=== PATIENT | male | born 1965 | race Caucasian/White ===

== ENCOUNTER 2022-02-02 10:50 | Inpatient (IN) | payer BC, OTHER ==
[2022-02-02] VITALS (10 sets, daily range): BP systolic 111–162; BP diastolic 58–78
[~2022-02-02] VITALS: Ht 172 cm; Wt 86.0 kg
[2022-02-02] MEDS ORDERED: VANCOMYCIN INJECTION 1,000 MG in NS (IVPB) 250 ML IV ONE (11:15)
[2022-02-02] MEDS ORDERED: PIPERACILLIN SODIUM/TAZOBACTAM 4.5 GM in NS (IVPB) 100 ML IV ONE (11:15)
--- NOTE | 2022-02-02 11:17 | ED Lower Extremity ---
General Stated Complaint: RT FOOT INFECTION Source: patient Exam Limitations: no limitations History of Present Illness Date Seen by Provider: Feb 02, 2022 Time Seen by Provider: 11:00 Initial Comments 56-year-old male presents from urgent care for concerns for right foot infection. He states symptoms have progressed rapidly over the last 3 weeks. Denies any fevers but has had some chills. He is diabetic, takes metformin regularly. Does not know what his blood sugars have been running at home. 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 He states the worst of his pain is in his right ankle. He has had progressive redness that is spreading up his right leg for his report. Pain is dull throbbing without radiation. It is aggravated by weightbearing, relieved somewhat with rest. He has not tried anything for his symptoms. Mild to moderate with ambulation. No known injury Allergies and Home Medications Allergies Coded Allergies: No Known Drug Allergies (Unverified , 02/02/22) Patient Home Medication List Home Medication List Reviewed: Yes Acetaminophen (Tylenol Extra Strength) 500 Mg Tablet, 1,000 MG PO Q8H PRN for PAIN-MILD (1-4), (Reported) Entered as Reported by: RAFIQ TRAN on 02/02/221529 Last Action: Reviewed Latanoprost (Xalatan) 0.005 % Drops, 1 DROP OU HS, (Reported) Entered as Reported by: RAFIQ TRAN on 02/02/221529 Last Action: Reviewed Metformin HCl (Metformin HCl) 500 Mg Tablet, 500 MG PO BID WITH MEALS, (Reported) Entered as Reported by: RAFIQ TRAN on 02/02/221529 Last Action: Reviewed Timolol Maleate (Timolol Maleate 0.5%) 0.5 % Drops, 1 DROP OU DAILY, (Reported) Entered as Reported by: RAFIQ TRAN on 02/02/221529 Last Action: Reviewed Review of Systems Constitutional: chills EENTM: no symptoms reported Respiratory: no symptoms reported, see HPI Cardiovascular: no symptoms reported Gastrointestinal: no symptoms reported Genitourinary: no symptoms reported Musculoskeletal: other (Pain in his right ankle, right foot infection) Skin: other (Right foot infection) Psychiatric/Neurological: No Symptoms Reported Past Hvaxagv-Bbwpkr-Pgeaxw Hx Patient Social History Tobacco Use?: No Use of E-Cig and/or Vaping dev: No Substance use?: No Alcohol Use?: No Seasonal Allergies Seasonal Allergies: No Past Medical History Surgeries: No Family Medical History Reviewed Nursing Family Hx No Pertinent Family Hx Physical Exam Vital Signs Vital Signs - First Documented Capillary Refill : Height, Weight, BMI Height: '" Weight: lbs. oz. kg; BMI Method: General Appearance: WD/WN, no apparent distress HEENT: PERRL/EOMI, normal ENT inspection, pharynx normal Neck: non-tender, supple, normal inspection Cardiovascular: no gallop, no murmur, tachycardia Respiratory: chest non-tender, lungs clear, no respiratory distress, no a ccessory muscle use Gastrointestinal: normal bowel sounds, non tender, soft, no organomegaly Hips: bilateral hip non-tender, bilateral hip normal inspection, bilateral hip normal range of motion, bilateral hip no evidence of injury, bilateral hip bone tenderness Legs: bilateral leg non-tender, bilateral leg normal inspection, bilateral leg normal range of motion, bilateral leg no evidence of injury, bilateral leg abrasions, bilateral leg bone tenderness, bilateral leg deformity, bilateral leg ecchymosis, bilateral leg joint effusion, bilateral leg limited range of motion, bilateral leg nodules, bilateral leg pain, bilateral leg soft tissue tenderness, bilateral leg swelling, bilateral leg other Knees: bilateral knee non-tender, bilateral knee normal inspection, bilateral knee normal range of motion, bilateral knee no evidence of injury, bilateral knee bone tenderness, bilateral knee deformity, bilateral knee ecchymosis, bi lateral knee joint effusion, bilateral knee nodules, bilateral knee nodules, bilateral knee pain, bilateral knee soft tissue tenderness, bilateral knee swelling, bilateral knee other Ankles: right ankle swelling (Tenderness palpation diffusely about the right foot, ankle. There is a combination of dry and wet gangrene to the dorsum and plantar surface of the right foot. This extends from beneath the third toe and wraps around to the dorsum of his foot and about the same area.), right ankle other (There is a very foul smell emanating from the right foot wound) Feet: right foot other (As documented above) Neurologic/Psychiatric: no motor/sensory deficits, alert, normal mood/affect, oriented x 3 Skin: other (As described above) Progress/Results/Core Measures Results/Orders Lab Results Laboratory Tests Test 8/24/22 11:25 Range/Units White Blood Count 21.7 H 4.3-11.0 10^3/uL Red Blood Count 3.79 L 4.30-5.52 10^6/uL Hemoglobin 11.6 L 13.3-17.7 g/dL Hematocrit 34 L 40-54 % Mean Corpuscular Volume 90 80-99 fL Mean Corpuscular Hemoglobin 31 25-34 pg Mean Corpuscular Hemoglobin Concent 34 32-36 g/dL Red Cell Distribution Width 12.4 10.0-14.5 % Platelet Count 463 H 130-400 10^3/uL Mean Platelet Volume 9.9 9.0-12.2 fL Immature Granulocyte % (Auto) 1 % Neutrophils (%) (Auto) 89 H 42-75 % Lymphocytes (%) (Auto) 5 L 12-44 % Monocytes (%) (Auto) 5 0-12 % Eosinophils (%) (Auto) 0 0-10 % Basophils (%) (Auto) 0 0-10 % Neutrophils # (Auto) 19.3 H 1.8-7.8 10^3/uL Lymphocytes # (Auto) 1.1 1.0-4.0 10^3/uL Monocytes # (Auto) 1.0 0.0-1.0 10^3/uL Eosinophils # (Auto) 0.0 0.0-0.3 10^3/uL Basophils # (Auto) 0.0 0.0-0.1 10^3/uL Immature Granulocyte # (Auto) 0.2 H 0.0-0.1 10^3/uL Neutrophils % (Manual) 92 % Lymphocytes % (Manual) 6 % Monocytes % (Manual) 1 % Eosinophils % (Manual) 0 % Basophils % (Manual) 0 % Metamyelocytes % 1 % Band Neutrophils 0 % Sodium Level 121 *L 135-145 MMOL/L Potassium Level 4.9 3.6-5.0 MMOL/L Chloride Level 82 L 98-107 MMOL/L Carbon Dioxide Level 23 21-32 MMOL/L Anion Gap 16 H 5-14 MMOL/L Blood Urea Nitrogen 37 H 7-18 MG/DL Creatinine 1.09 0.60-1.30 MG/DL Estimat Glomerular Filtration Rate 81 BUN/Creatinine Ratio 34 Glucose Level 509 *H 70-105 MG/DL Lactic Acid Level 1.84 0.50-2.00 MMOL/L Calcium Level 9.2 8.5-10.1 MG/DL Corrected Calcium 10.5 H 8.5-10.1 MG/DL Total Bilirubin 0.7 0.1-1.0 MG/DL Aspartate Amino Transf (AST/SGOT) 12 5-34 U/L Alanine Aminotransferase (ALT/SGPT) 7 0-55 U/L Alkaline Phosphatase 166 H 40-136 U/L Total Protein 7.9 6.4-8.2 GM/DL Albumin 2.4 L 3.2-4.5 GM/DL My Orders Orders - MAGALI ROJAS DO Cbc With Automated Diff (02/02/22 11:03) Comprehensive Metabolic Panel (02/02/22 11:03) Blood Culture (02/02/22 11:03) Ed Iv/Invasive Line Start (02/02/22 11:03) Vital Signs Adult Sepsis Patie Q15M (02/02/22 11:03) Lactic Acid Analyzer (02/02/22 11:03) Wound Culture (02/02/22 11:03) Piperacillin Sodium/Tazobactam (Zosyn Vi (02/02/22 11:15) Vancomycin Injection (Vancomycin Injecti (02/02/22 11:15) Foot 2 View Right (02/02/22 11:10) Ct Extremity Lower Right Wo (02/02/22 11:24) Manual Differential (02/02/22 11:25) Insulin Aspart (Novolog) (Novolog (Charg (02/02/22 12:15) Ed Admission (Communication) (02/02/22 12:21) Medications Given in ED Current Medications Medications Dose Ordered Sig/Sara Route Start Time Stop Time Status Last Admin Dose Admin Insulin Aspart 5 unit ONCE ONCE SC 02/02/22 12:15 02/02/22 12:16 DC 02/02/22 12:31 5 UNIT Piperacillin Sod/ Tazobactam Sod 4.5 gm/Sodium Chloride 100 ml @ 200 mls/hr ONCE ONCE IV 02/02/22 11:15 02/02/22 11:44 DC 02/02/22 11:28 200 MLS/HR Vancomycin HCl 1000 mg/Sodium Chloride 250 ml @ 250 mls/hr ONCE ONCE IV 02/02/22 11:15 02/02/22 12:14 DC 02/02/22 11:35 250 MLS/HR Vital Signs/I&O 02/02/22 02/02/22 02/02/22 10:55 10:55 12:15 Temp 36.3 36.3 Pulse 112 112 104 Resp 20 20 18 B/P (MAP) 161/87 (111) 161/87 135/62 Pulse Ox 98 98 92 O2 Delivery Room Air Room Air Room Air Progress Progress Note : Time: 12:28 Progress Note Patient tachycardia has improved with IV fluids. CT scan read as possible necrotizing fasciitis however there is no evidence for rapid progression of this infection and this seems indolent over the last several weeks to 1 month. He is normal to slightly hypertensive. He has been given IV antibiotics. I spoke with Dr. Clinton and Dr. Garcia. The patient is pending transport to [facility] Diagnostic Imaging Comments [facility], [place] NAME: MORE MISHRA [facility] REC#: [id number] PT STATUS: REG ER : 1965 PHYSICIAN: MAGALI ROJAS DO ADMIT DATE: 02/02/22/ER FS Draft Date of Exam:02/02/22 FOOT 2 VIEW RIGHT INDICATION: Right foot pain with gangrene. FINDINGS: Three views of the right foot show gas within the soft tissues of the second through fifth toes. There is no appreciable fracture, dislocation or radiopaque foreign object. IMPRESSION: Soft tissue gas, concerning for tissue necrosis. Dictated on workstation # [id number] Dict: 02/02/22 1143 Trans: 02/02/22 1148 [id number] Interpreted by: RENAE CORDOVA MD Electronically signed by: NAME: TADMORE AGUERO MED REC#: [id number] PT STATUS: REG ER : 1965 PHYSICIAN: MAGALI ROJAS DO ADMIT DATE: 02/02/22/ER FS Draft Date of Exam:02/02/22 CT EXTREMITY LOWER RIGHT WO EXAMINATION: CT right lower extremity without contrast, 02/02/2022. TECHNIQUE: Axially acquired CT was obtained through the right lower extremity without intravenous contrast. Coronal and sagittal reformations were also performed. Auto Exposure Controls were utilized during the CT exam to meet ALARA standards for radiation dose reduction. INDICATION: Foot infection, gangrene. Rule out necrotizing infection. FINDINGS: There is marked diffuse subcutaneous air throughout the forefoot, predominantly centered about the second through fourth metatarsophalangeal regions. This involves both the plantar and dorsal aspects of the forefoot. Foci of air extend proximally within the dorsal aspect of the foot at the level of the third and fourth metatarsals. Subcutaneous air is also noted along the medial aspect of the midfoot overlying the mid and distal aspects of the first metatarsal and extending towards the plantar surface of the foot. Surrounding subcutaneous edema and/or cellulitis noted throughout the forefoot. A small abscess would be difficult to exclude on this noncontrast examination. Within the osseous structures, there are degenerative changes within the ankle. There is intraosseous air within the second, third, and fourth metatarsal heads and also throughout the proximal second, third, and fourth phalanges and within the middle and proximal phalanges of the second, third, and fourth toes. 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 Chronic changes noted about the base of the fifth metatarsal. No acute fractures appreciated. IMPRESSION: 1. Diffuse subcutaneous air as detailed above suspicious for a gas-forming infection with gas-forming organism/necrotizing fasciitis. Abscess not excluded on this noncontrast examination. Diffuse changes of edema versus cellulitis also noted. 2. 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 Dictated on workstation # [id number] Dict: 02/02/22 1200 Trans: 02/02/22 1211 [id number] Interpreted by: GEORGE MATHUR MD Electronically signed by: Critical Care Note Critical Care Total Time (minutes) 65 Progress Time spent in chart review, medication management, consultation with multiple specialists and transfer. Departure Communication (Admissions) TRANSFER TO [place]. 4th floor tele, inpatient per Dr. Anand. Spoke to Dr. Clinton, agrees with plan. Requests transfer for operative manage ment. Patient is hemodynamically stable. Tachycardia improved with IV fluids. Initially some current concern for necrotizing type infection. CT scan shows possible necrotizing infection however given its indolent course I do not think that at least this is a rapid necrotizing infection. I spoke to the general surgeon, Dr. Clinton who agrees with current plan of care and requested patient remain n.p.o. and transfer for surgical management. He has been given IV antibiotics and IV fluids. I spoke with the hospitalist Dr. Anand. She accepts the patient in transfer. Impression Primary Impression: Wet gangrene Additional Impressions: Dry gangrene Sepsis Qualified Codes: A41.9 - Sepsis, unspecified organism Disposition: 30 STILL A PATIENT Condition: Stable Transfer Transfer Reason: Exceeds level of care Time Spoke to Accepting Phy: 12:20 Transfer Progress Notes Spoke to Dr. Anand. Request for for telemetry, inpatient. Accepts patient in transfer and agrees with current plan of care. Transfer Facility: [facility] Method of Transfer: EMS Departure-Patient Inst. Referrals: ABHINAV BARRIOS APRN (PCP) Primary Care Physician JOSE ANTONIO,LOCAL PHYSICIAN (Family) Primary Care Physician MAGALI ROJAS DO Feb 02, 2022 11:17
[2022-02-02 11:35] LABS: BASOPHILS % (AUTO) 0 % (0-10); EOSINOPHILS % (AUTO) 0 % (0-10); HEMATOCRIT 34 % (40-54); HEMOGLOBIN 11.6 g/dL (13.3-17.7); LYMPHOCYTES # (AUTO) 1.1 10^3/uL (1.0-4.0); LYMPHOCYTES % (AUTO) 5 % (12-44); MEAN CORPUSCULAR HEMOGLOBIN 31 pg (25-34); MEAN CORPUSCULAR HGB CONC 34 g/dL (32-36); MEAN CORPUSCULAR VOLUME 90 fL (80-99); MEAN PLATELET VOLUME 9.9 fL (9.0-12.2); MONOCYTES % (AUTO) 5 % (0-12); NEUTROPHILS # (AUTO) 19.3 10^3/uL (1.8-7.8); NEUTROPHILS % (AUTO) 89 % (42-75); PLATELET COUNT 463 10^3/uL (130-400); WHITE BLOOD COUNT 21.7 10^3/uL (4.3-11.0)
--- NOTE | 2022-02-02 11:49 | Diagnostic Imaging Report ---
INDICATION: Right foot pain with gangrene. FINDINGS: Three views of the right foot show gas within the soft tissues of the second through fifth toes. There is no appreciable fracture, dislocation or radiopaque foreign object. IMPRESSION: Soft tissue gas, concerning for tissue necrosis. Dictated by: Dictated on workstation # [id number]
[2022-02-02 11:50] LABS: BAND NEUTROPHILS 0 %; BASOPHILS % (MANUAL) 0 %; EOSINOPHILS % (MANUAL) 0 %; LYMPHOCYTES % (MANUAL) 6 %; METAMYELOCYTES % 1 %; MONOCYTES % (MANUAL) 1 %; NEUTROPHILS % (MANUAL) 92 %
[2022-02-02 12:03] LABS: POTASSIUM 4.9 MMOL/L (3.6-5.0)
[2022-02-02 12:04] LABS: ALBUMIN 2.4 GM/DL (3.2-4.5); BILIRUBIN,TOTAL 0.7 MG/DL (0.1-1.0); CALCIUM 9.2 MG/DL (8.5-10.1); CREATININE SERUM 1.09 MG/DL (0.60-1.30); TOTAL PROTEIN 7.9 GM/DL (6.4-8.2)
--- NOTE | 2022-02-02 12:12 | Diagnostic Imaging Report ---
EXAMINATION: CT right lower extremity without contrast, 02/02/2022. TECHNIQUE: Axially acquired CT was obtained through the right lower extremity without intravenous contrast. Coronal and sagittal reformations were also performed. Auto Exposure Controls were utilized during the CT exam to meet ALARA standards for radiation dose reduction. INDICATION: Foot infection, gangrene. Rule out necrotizing infection. FINDINGS: There is marked diffuse subcutaneous air throughout the forefoot, predominantly centered about the second through fourth metatarsophalangeal regions. This involves both the plantar and dorsal aspects of the forefoot. Foci of air extend proximally within the dorsal aspect of the foot at the level of the third and fourth metatarsals. Subcutaneous air is also noted along the medial aspect of the midfoot overlying the mid and distal aspects of the first metatarsal and extending towards the plantar surface of the foot. Surrounding subcutaneous edema and/or cellulitis noted throughout the forefoot. A small abscess would be difficult to exclude on this noncontrast examination. Within the osseous structures, there are degenerative changes within the ankle. There is intraosseous air within the second, third, and fourth metatarsal heads and also throughout the proximal second, third, and fourth phalanges and within the middle and proximal phalanges of the second, third, and fourth toes. 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 Chronic changes noted about the base of the fifth metatarsal. No acute fractures appreciated. IMPRESSION: 1. Diffuse subcutaneous air as detailed above suspicious for a gas-forming infection with gas-forming organism/necrotizing fasciitis. Abscess not excluded on this noncontrast examination. Diffuse changes of edema versus cellulitis also noted. 2. 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 Dictated by: Dictated on workstation # [id number]
[2022-02-02] MEDS ORDERED: inSUlin ASPART (NovoLOG) 1 UNIT/0.01 ML (CHARGE PER UNIT) SC ONE (12:15)
[2022-02-02] MEDS ORDERED: ONDANSETRON 4 MG/2 ML (SDV) Z0FRAN IV PRN (14:45)
[2022-02-02] MEDS ORDERED: polyethylene glycoL POWDER 17 GM (MIRALAX) PACK PO PRN (14:45)
[2022-02-02] MEDS ORDERED: MELATONIN 3 MG TABLET PO PRN (14:45)
[2022-02-02] MEDS ORDERED: VANCOMYCIN INJECTION 0.1 MG in NS (IVPB) 250 ML IV SCH (14:45)
[2022-02-02] MEDS ORDERED: ACETAMINOPHEN 325 MG TABLET PO PRN (14:45)
--- NOTE | 2022-02-02 14:57 | Consultation - Surgery ---
GODWIN ALLISON 02/02/22 1457: History of Present Illness History of Present Illness Patient Consulted On(lamar/time) 02/02/22 14:47 Date Seen by Provider: Feb 02, 2022 History of Present Illness Pt presents from [facility] with suspected necrotizing fasciitits of right lower extremity, for the last x 3 weeks. Pt has a hx of diabetes, takes metformin regularly. States for the last 3 months he has had issues with wounds not healing on his RLE. States x 3 weeks ago at the [place] he noticed some discomfort in his right ankle. Since then he has had progressive redness that is spreading up his right leg and down into his toes. 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 It is aggravated by weightbearing, relieved somewhat with rest. He has not tried anything for his symptoms. Mild to moderate discomfort with ambulation. No known injury. He is not sure what his sugars have been over the last several days. Denies fever, chills, N/V, CP, SOB, abdominal pain, or any other sx. States he has decreased appetite and has not eaten since yesterday afternoon. Allergies and Home Medications Allergies Coded Allergies: No Known Drug Allergies (Unverified , 02/02/22) Patient Home Medication List Acetaminophen (Tylenol Extra Strength) 500 Mg Tablet, 1,000 MG PO Q8H PRN for PAIN-MILD (1-4), (Reported) Entered as Reported by: RAFIQ TRAN on 02/02/221529 Last Action: Reviewed Latanoprost (Xalatan) 0.005 % Drops, 1 DROP OU HS, (Reported) Entered as Reported by: RAFIQ TRAN on 02/02/221529 Last Action: Reviewed Metformin HCl (Metformin HCl) 500 Mg Tablet, 500 MG PO BID WITH MEALS, (Reported) Entered as Reported by: RAFIQ TRAN on 02/02/221529 Last Action: Reviewed Timolol Maleate (Timolol Maleate 0.5%) 0.5 % Drops, 1 DROP OU DAILY, (Reported) Entered as Reported by: RAFIQ TRAN on 02/02/221529 Last Action: Reviewed Past Itcjxxq-Modfys-Xuadts Hx Patient Social History Smoking Status: Never a Smoker Alcohol Use?: No Have you traveled recently?: No Seasonal Allergies Seasonal Allergies: No Surgeries History of Surgeries: No Respiratory History of Respiratory Disorde: No Cardiovascular History of Cardiac Disorders: No Neurological History of Neurological Disord: No Gastrointestinal History of Gastrointestinal Di: No Musculoskeletal History of Musculoskeletal Dis: No Endocrine Endocrine Disorders: Diabetes, Non-Insulin dep HEENT HEENT Disorders: Cataract Cancer History of Cancer: No Family Medical History Significant Family History: No Pertinent Family Hx Review of Systems-General Constitutional: No chills, No fever Physical Exam-General Problems Physical Exam Vital Signs Vital Signs - First Documented Capillary Refill : Less Than 3 Seconds General Appearance: no apparent distress Eyes: Bilateral Eye PERRL, Bilateral Eye EOMI HEENT: PERRL/EOMI Neck: non-tender, supple Respiratory: lungs clear, normal breath sounds, no respiratory distress, no accessory muscle use Cardiovascular: no gallop, no murmur, tachycardia Peripheral Pulses: 2+ Radial Pulses (R), 2+ Radial Pulses (L) Gastrointestinal: normal bowel sounds, non tender, soft Extremities: swelling (Tenderness to palpation diffusely about the right foot, ankle. There is a combination of dry and wet gangrene to the dorsum and plantar surface of the right foot. This extends from beneath the third toe and wraps around to the dorsum of his foot and about the same area. Second, third and fourth toes necrotic and black. It has a very foul smell associated w/it) Neurologic/Psychiatric: alert, oriented x 3 Skin: other (RLE as noted above. ) Lymphatic: no adenopathy (of supraclavicular nodes ) Data Review Labs Laboratory Tests 02/02/22 11:25: White Blood Count 21.7H, Red Blood Count 3.79L, Hemoglobin 11.6L, Hematocrit 34L , Mean Corpuscular Volume 90, Mean Corpuscular Hemoglobin 31, Mean Corpuscular H emoglobin Concent 34, Red Cell Distribution Width 12.4, Platelet Count 463H, Mean Platelet Volume 9.9, Immature Granulocyte % (Auto) 1, Neutrophils (%) (Auto) 89H, Lymphocytes (%) (Auto) 5L, Monocytes (%) (Auto) 5, Eosinophils (%) (Auto) 0, Basophils (%) (Auto) 0, Neutrophils # (Auto) 19.3H, Lymphocytes # (Auto) 1.1, Monocytes # (Auto) 1.0, Eosinophils # (Auto) 0.0, Basophils # (Auto) 0.0, Immature Granulocyte # (Auto) 0.2H, Neutrophils % (Manual) 92, Lymphocytes % (Manual) 6, Monocytes % (Manual) 1, Eosinophils % (Manual) 0, Basophils % (Manual) 0, Metamyelocytes % 1, Band Neutrophils 0, Sodium Level 121*L, Potassium Level 4.9, Chloride Level 82L, Carbon Dioxide Level 23, Anion Gap 16H, Blood Urea Nitrogen 37H, Creatinine 1.09, Estimat Glomerular Filtration Rate 81, BUN/Creatinine Ratio 34, Glucose Level 509*H, Lactic Acid Level 1.84, Calcium Level 9.2, Corrected Calcium 10.5H, Total Bilirubin 0.7, Aspartate Amino Transf (AST/SGOT) 12, Alanine Aminotransferase (ALT/SGPT) 7, Alkaline Phosphatase 166H, Total Protein 7.9, Albumin 2.4L 02/02/22 13:05: Glucometer 463*H Assessment/Plan Assessment/Plan Assessment/Plan Necrotizing fasciitis of RLE Emphysematous osteomyelitis of RLE T2DM Pt started on IV fluids, zosyn, and vanc. CT evidence of necrotizing fasciitis and osteomyelitis. Abscess cannot be ruled out. He is currently hemodynamically stable. His last meal was yesterday afternoon. Plan to take to OR for BKA. Discussed pt diagnosis with him and recommendation for surgery including risks and benefits. Pt was agreeable to proceed. VASQUEZ TAVERA DO 02/02/22 1553: History of Present Illness History of Present Illness Time Seen by Provider: 15:31 History of Present Illness Surgery asked to consult regarding Gangrene of right lower extremity. HPI per IM: Patient is a 56-year-old male with past medical history of rvg-rgamawf-clwravvlr diabetes type 2 and hypertension who presented to the emergency department due to foot infection. He is uncertain when all of his symptoms started but thinks it is been worsening over the past 3 weeks. He does have black toes on his right foot and he is unaware how long they have been joaquin ck for. He denies any fevers. He does have redness that is spreading up his leg and he was seen at an urgent care this morning and referred to the emergency department. He was found to have gangrenous toes and CT revealed diffuse gas throughout his foot and he was admitted for IV antibiotics and very likely amputation. When I spoke to pt he states pain is moderate, he stands at work and was able to work today. He actually got sent to Urgent care because of smell and was then sent to ER. This has been going on for 3months, but worse over past 3 weeks. Allergies and Home Medications Allergies Coded Allergies: No Known Drug Allergies (Unverified , 02/02/22) Patient Home Medication List Home Medication List Reviewed: Yes Acetaminophen (Tylenol Extra Strength) 500 Mg Tablet, 1,000 MG PO Q8H PRN for PAIN-MILD (1-4), (Reported) Entered as Reported by: RAFIQ TRAN on 02/02/221529 Last Action: Reviewed Latanoprost (Xalatan) 0.005 % Drops, 1 DROP OU HS, (Reported) Entered as Reported by: RAFIQ TARN on 02/02/221529 Last Action: Reviewed Metformin HCl (Metformin HCl) 500 Mg Tablet, 500 MG PO BID WITH MEALS, (Reported) Entered as Reported by: RAFIQ TRAN on 02/02/221529 Last Action: Reviewed Timolol Maleate (Timolol Maleate 0.5%) 0.5 % Drops, 1 DROP OU DAILY, (Reported) Entered as Reported by: RAFIQ TRAN on 02/02/221529 Last Action: Reviewed Past Ptjbmuh-Puagip-Tdjfsz Hx Patient Social History Smoking Status: Never a Smoker Alcohol Use?: No Surgeries History of Surgeries: No Respiratory History of Respiratory Disorde: No Cardiovascular History of Cardiac Disorders: No Genitourinary History of Genitourinary Disor: No Gastrointestinal History of Gastrointestinal Di: No Musculoskeletal History of Musculoskeletal Dis: No Endocrine History of Endocrine Disorders: Yes Endocrine Disorders: Diabetes, Non-Insulin dep HEENT History of HEENT Disorders: Yes HEENT Disorders: Cataract (actually scheduled for surgery next week) Hearing Impairment: Denies Cancer History of Cancer: No Psychosocial History of Psychiatric Problem: No Family Medical History Significant Family History: Cancer (Father had Hodgkins Lymphoma), Hypertension Review of Systems-General Constitutional: No chills, No fever, No weakness EENTM: blurred vision; No mouth swelling, No epistaxis Respiratory: No cough, No dyspnea on exertion Cardiovascular: No chest pain, No palpitations Gastrointestinal: No abdominal pain, No diarrhea; loss of appetite; No nausea, No vomiting Genitourinary: No dysuria, No frequency, No hematuria Musculoskeletal: joint pain, joint swelling, muscle stiffness Skin: see HPI; No pruritus, No rash Psychiatric/Neurological: Denies Anxiety, Denies Depressed, Denies Seizure, Denies Tremors Physical Exam-General Problems Physical Exam General Appearance: WD/WN, no apparent distress Eyes: Bilateral Eye PERRL, Bilateral Eye EOMI HEENT: pharynx normal; No scleral icterus (R), No scleral icterus (L) Neck: non-tender, supple Respiratory: lungs clear, normal breath sounds, no respiratory distress, no accessory muscle use Cardiovascular: no murmur, tachycardia Peripheral Pulses: 2+ Radial Pulses (R), 2+ Radial Pulses (L) Gastrointestinal: normal bowel sounds, non tender, soft, no organomegaly Back: no CVA tenderness, no vertebral tenderness Extremities: no calf tenderness, swelling (Tenderness to palpation diffusely about the right foot, ankle. There is a combination of dry and wet gangrene to the dorsum and plantar surface of the right foot. This extends from beneath the third toe and wraps around to the dorsum of his foot and about the same area. Second, third and fourth toes necrotic and black. It has a very foul smell associated w/it) Neurologic/Psychiatric: brands editor II-XII nml as tested, alert, oriented x 3 Skin: normal color, warm/dry, other (RLE as noted above. ) Lymphatic: no adenopathy (neck, axilla. ??nodes in right groin) Data Review Radiology Date of Exam:02/02/22 CT EXTREMITY LOWER RIGHT WO EXAMINATION: CT right lower extremity without contrast, 02/02/2022. TECHNIQUE: Axially acquired CT was obtained through the right lower extremity without intravenous contrast. Coronal and sagittal reformations were also performed. Auto Exposure Controls were utilized during the CT exam to meet ALARA standards for radiation dose reduction. INDICATION: Foot infection, gangrene. Rule out necrotizing infection. FINDINGS: There is marked diffuse subcutaneous air throughout the forefoot, predominantly centered about the second through fourth metatarsophalangeal regions. This involves both the plantar and dorsal aspects of the forefoot. Foci of air extend proximally within the dorsal aspect of the foot at the level of the third and fourth metatarsals. Subcutaneous air is also noted along the medial aspect of the midfoot overlying the mid and distal aspects of the first metatarsal and extending towards the plantar surface of the foot. Surrounding subcutaneous edema and/or cellulitis noted throughout the forefoot. A small abscess would be difficult to exclude on this noncontrast examination. Within the osseous structures, there are degenerative changes within the ankle. There is intraosseous air within the second, third, and fourth metatarsal heads and also throughout the proximal second, third, and fourth phalanges and within the middle and proximal phalanges of the second, third, and fourth toes. 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 Chronic changes noted about the base of the fifth metatarsal. No acute fractures appreciated. IMPRESSION: 1. Diffuse subcutaneous air as detailed above suspicious for a gas-forming infection with gas-forming organism/necrotizing fasciitis. Abscess not excluded on this noncontrast examination. Diffuse changes of edema versus cellulitis also noted. 2. 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 Dictated by: Dictated on workstation # [id number] Dict: 02/02/22 1200 Trans: 02/02/22 1515 [id number] Interpreted by: GEORGE MATHUR MD Electronically signed by: GEORGE MATHUR MD 02/02/22 1515 Assessment/Plan Assessment/Plan Assessment/Plan Gangrene of toes Right Lower Extremity r/o Osteomyelitis Possible Necrotizing fasciitis of RLE Emphysematous osteomyelitis of RLE T2DM - uncontrolled Pt started on IV fluids, zosyn, and vanc. I reviewed the CT myself and agree with radiology reading; CT evidence of possible necrotizing fasciitis and osteomyelitis. Abscess cannot be ruled out. I also discussed case with Dr. Anand. He is currently hemodynamically stable. His last meal was yesterday afternoon. Plan to take to OR for BKA. Discussed pt diagnosis with him and recommendation for surgery including risks and benefits; not limited to pain, bleeding, infection, scar and need for further surgery.. Pt was agreeable to proceed. Supervisory-Addendum Brief Verification & Attestation Participated in pt care: history, MDM, physical Personally performed: exam, history, MDM, supervision of care Care discussed with: Medical Student Procedures: n/a Verification and Attestation of Medical Student E/M Service A medical student performed and documented this service. I then reviewed and verified all information documented by the medical student and made modifications to such information, when appropriate. I personally performed a physical exam, medical decision making and then discussed any differences between the notes and made revisions as necessary to create one note. Vasquez Tavera , 02/02/22 , 15:58 GODWIN ALLISON Feb 02, 2022 14:57 VASQUEZ TAVERA DO Feb 02, 2022 15:53
--- NOTE | 2022-02-02 15:07 | History & Physical-Hospitalist ---
History of Present Illness HPI/Chief Complaint Patient is a 56-year-old male with past medical history of zwn-qnlxvjg-gpxwjglwv diabetes type 2 and hypertension who presented to the emergency department due to foot infection. He is uncertain when all of his symptoms started but thinks it is been worsening over the past 3 weeks. He does have black toes on his right foot and he is unaware how long they have been black for. He denies any fevers. He does have redness that is spreading up his leg and he was seen at an urgent care this morning and referred to the emergency department. He was found to have gangrenous toes and CT revealed diffuse gas t hroughout his foot and he was admitted for IV antibiotics and very likely amputation. Source: patient Date Seen 02/02/22 Time Seen by a Provider: 14:45 Attending Physician No,Local Physician PCP Admitting Physician: Zoey Anand MD Attending Physician: Zoey Anand MD Referring Physician Date of Admission Feb 02, 2022 at 14:14 Home Medications & Allergies Home Medications Reviewed patient Home Medication Reconciliation performed by pharmacy medication reconciliations converting technician and/or nursing. Patients Allergies have been reviewed. Allergies Allergies Coded Allergies No Known Drug Allergies (Unverified02/02/22) Past Ervovgp-Eyvapo-Wfvaig Hx Patient Social History Employed/Student: employed Tobacco Use?: No Use of E-Cig and/or Vaping dev: No Substance use?: No Alcohol Use?: Yes Alcohol Frequency: Rarely Pt feels they are or have been: No Immunizations Up To Date Tetanus Booster (TDap): More Than 5 Years Seasonal Allergies Seasonal Allergies: No Current Status Advance Directives: No Communicates: Verbally Primary Language: Togolese Preferred Spoken Language: Togolese Is interpretation needed?: No Sensory deficits: Vision impairment Implanted or Applied Medical D: None Past Medical History Hypertension Diabetes, Non-Insulin dep Family Medical History Reviewed and Corrections made Diabetes, Hypertension Review of Systems Constitutional: chills; No fever EENTM: no symptoms reported Respiratory: no symptoms reported Cardiovascular: No chest pain, No edema, No palpitations Gastrointestinal: no symptoms reported Genitourinary: no symptoms reported Musculoskeletal: joint pain (ankle) Skin: see HPI Psychiatric/Neurological: No Symptoms Reported Physical Exam Physical Exam Vital Signs Vital Signs - First Documented Capillary Refill : Less Than 3 Seconds Height, Weight, BMI Height: '" Weight: lbs. oz. kg; 27.00 BMI Method: General Appearance: No Apparent Distress, Chronically ill, Thin HEENT: PERRL/EOMI, Moist Mucous Membranes, Other (poor dentition) Neck: Normal Inspection, Supple Respiratory: Lungs Clear, No Accessory Muscle Use, No Respiratory Distress Cardiovascular: No Murmur, Tachycardia Gastrointestinal: Normal Bowel Sounds, Non Tender, Soft Extremity: Swelling (right leg ), Other (right foot with dry ganrenous and black toes with streaking erythema spreading up leg) Neurologic/Psychiatric: Alert, Oriented x3 Skin: Erythema (RLE) Results Results/Procedures Labs Laboratory Tests 02/02/22 11:25 02/03/22 05:29 Patient resulted labs reviewed. Imaging: Reviewed Imaging Report Imaging [facility] [place] NAME: MORE MISHRA [facility] REC#: [id number] PT STATUS: REG ER : 1965 PHYSICIAN: MAGALI ROJAS DO ADMIT DATE: 02/02/22/ER FS Draft Date of Exam:02/02/22 CT EXTREMITY LOWER RIGHT WO EXAMINATION: CT right lower extremity without contrast, 02/02/2022. TECHNIQUE: Axially acquired CT was obtained through the right lower extremity without intravenous contrast. Coronal and sagittal reformations were also performed. Auto Exposure Controls were utilized during the CT exam to meet ALARA standards for radiation dose reduction. INDICATION: Foot infection, gangrene. Rule out necrotizing infection. FINDINGS: There is marked diffuse subcutaneous air throughout the forefoot, predominantly centered about the second through fourth metatarsophalangeal regions. This involves both the plantar and dorsal aspects of the forefoot. Foci of air extend proximally within the dorsal aspect of the foot at the level of the third and fourth metatarsals. Subcutaneous air is also noted along the medial aspect of the midfoot overlying the mid and distal aspects of the first metatarsal and extending towards the plantar surface of the foot. Surrounding subcutaneous edema and/or cellulitis noted throughout the forefoot. A small abscess would be difficult to exclude on this noncontrast examination. Within the osseous structures, there are degenerative changes within the ankle. There is intraosseous air within the second, third, and fourth metatarsal heads and also throughout the proximal second, third, and fourth phalanges and within the middle and proximal phalanges of the second, third, and fourth toes. 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 Chronic changes noted about the base of the fifth metatarsal. No acute fractures appreciated. IMPRESSION: 1. Diffuse subcutaneous air as detailed above suspicious for a gas-forming infection with gas-forming organism/necrotizing fasciitis. Abscess not excluded on this noncontrast examination. Diffuse changes of edema versus cellulitis also noted. 2. 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 Dictated on workstation # [id number] Dict: 02/02/22 1200 Trans: 02/02/22 1211 [id number] Interpreted by: GEORGE MATHUR MD Electronically signed by: Assessment/Plan Admission Diagnosis Sepsis Admission Status: Inpatient Order (span 2 midnights) Reason for Inpatient Admission: see below Assessment and Plan sepsis gangrene wet and dry of right lower extremity Continue on IV abx Surgery consulted for likely amputation Has not eaten since yesterday Await cultures Does not meet severe criteria Consider cardiology consultation to evaluate for PAD NIDDMII ONly on metformin at home BS 509 on arrival SSI Will check a1c Na corrects to 131- trend HTN BP very elevated on arrival, trend DVT ppx: Lovenox after surgery ZOEY ANAND MD Feb 02, 2022 15:07
[2022-02-02] MEDS ORDERED: VANCOMYCIN 500 MG/NS 100 ML IV NR ×2 (15:15)
[2022-02-02] MEDS ORDERED: METF-397 PO (15:30)
[2022-02-02] MEDS ORDERED: ACET-2267 PO (15:30)
[2022-02-02] MEDS ORDERED: LATA2.5D19 OU (15:30)
[2022-02-02] MEDS ORDERED: TIMO5DRO5 OU (15:30)
[2022-02-02] MEDS: NS IV 1000 ML 1,000 ML IV SCH ×2 (15:37→20:09)
[2022-02-02] MEDS: inSUlin ASPART (NovoLOG) 1 UNIT/0.01 ML (CHARGE PER UNIT) SC SCH ×2 (15:43→20:08)
[2022-02-02] MEDS ORDERED: LIDOCAINE PF 2% 5 ML (XYLOCAINE) VIAL ONE (16:08)
[2022-02-02] MEDS ORDERED: ONDANSETRON 4 MG/2 ML (SDV) Z0FRAN ONE (16:08)
[2022-02-02] MEDS ORDERED: SEVOFLURANE (ULTANE) 15 ML INHAL SOLN ONE ×2 (16:08→17:42)
[2022-02-02] MEDS ORDERED: proPOfol 200 MG/20 ML (DIPRIVAN) VIAL IV ONE (16:08)
[2022-02-02] MEDS ORDERED: fentaNYL INJ 100 MCG/2 ML AMP ONE (16:08)
[2022-02-02] MEDS ORDERED: MIDAZOLAM 2 MG/2 ML (VERSED) VIAL ONE (16:09)
[2022-02-02] MEDS ORDERED: LACTATED RINGERS 1,000 ML IV PRN (16:45)
--- NOTE | 2022-02-02 17:34 | Progress Note-Post Operative ---
Post-Operative Progess Note Surgeon (s)/Audiovisual Technician (s) Surgeon VASQUEZ TAVERA DO Audiovisual Technician: [place] Pre-Operative Diagnosis Gangrene, Necrotizing Fasciitis, Osteomyelitis Post-Operative Diagnosis same pending path Procedure & Operative Findings Date of Procedure 02/02/22 Procedure Performed/Findings Right BKA Anesthesia Type LMA Estimated Blood Loss Estimated blood loss (mL): less than 30ml Specimens/Packing Specimens Removed right lower extremity VASQUEZ TAVERA DO Feb 02, 2022 17:34
--- NOTE | 2022-02-02 17:50 | Anesthesia-General Post-Op ---
General Patient Condition Mental Status/LOC: Same as Preop Cardiovascular: Satisfactory Nausea/Vomiting: Absent Respiratory: Satisfactory Pain: Controlled Complications: Absent Post Op Complications Complications None Follow Up Care/Instructions Patient Instructions None needed. Anesthesia/Patient Condition Patient Condition Patient is doing well, no complaints, stable vital signs, no apparent adverse anesthesia problems. No complications reported per nursing. LAUREL ODOM CRNA Feb 02, 2022 17:49
[2022-02-02] MEDS: PIPERACILLIN SODIUM/TAZOBACTAM 4.5 GM in NS (IVPB) 100 ML IV SCH (17:51)
[2022-02-02] MEDS ORDERED: morphine INJ 10 MG/ML 1ML (SYR OR VIAL) ONE (17:59)
[2022-02-02] MEDS ORDERED: MEPERIDINE (DEMEROL) INJ 50 MG/ML IVP ONE (18:00)
[2022-02-02] MEDS ORDERED: morphine INJ 10 MG/ML 1ML (SYR OR VIAL) IVP ONE (18:00)
[2022-02-02] MEDS ORDERED: HYDROmorphone 2 MG/ML VIAL (DILAUDID) IV ONE (18:00)
[2022-02-02] MEDS ORDERED: ONDANSETRON 4 MG/2 ML (SDV) Z0FRAN IVP PRN (18:00)
[2022-02-03 00:05] VITALS: BP 115/70
[2022-02-03] MEDS: PIPERACILLIN SODIUM/TAZOBACTAM 4.5 GM in NS (IVPB) 100 ML IV SCH ×4 (00:16→23:51)
[2022-02-03] MEDS: NS IV 1000 ML 1,000 ML IV SCH ×3 (02:16→22:36)
[2022-02-03] MEDS: VANCOMYCIN 1250 MG/NS 250 ML IVPB IV SCH ×4 (03:59→16:17)
[2022-02-03 04:03] VITALS: BP 126/73
[2022-02-03 05:46] LABS: HEMATOCRIT 30 % (40-54); HEMOGLOBIN 9.8 g/dL (13.3-17.7); MEAN CORPUSCULAR HEMOGLOBIN 30 pg (25-34); MEAN CORPUSCULAR HGB CONC 33 g/dL (32-36); MEAN CORPUSCULAR VOLUME 92 fL (80-99); MEAN PLATELET VOLUME 9.7 fL (9.0-12.2); PLATELET COUNT 412 10^3/uL (130-400); WHITE BLOOD COUNT 14.5 10^3/uL (4.3-11.0)
[2022-02-03 05:52] LABS: POTASSIUM 4.3 MMOL/L (3.6-5.0)
[2022-02-03 05:58] LABS: CREATININE SERUM 1.05 MG/DL (0.60-1.30)
[2022-02-03] MEDS: inSUlin ASPART (NovoLOG) 1 UNIT/0.01 ML (CHARGE PER UNIT) SC SCH ×4 (06:12→21:10)
[2022-02-03 08:06] VITALS: BP 132/69
[2022-02-03] MEDS ORDERED: morphine INJ 4 MG/ML 1 ML (VIAL/SYRINGE) IVP PRN (08:15)
--- NOTE | 2022-02-03 08:21 | Progress Note - Surgery ---
GODWIN ALLISON 02/03/22 0821: Subjective Date Seen by a Provider: Feb 03, 2022 Time Seen by a Provider: 07:50 Subjective/Events-last exam Pt is s/p right BKA, resting comfortably in bed. States his pain is 6/10 right now. He is urinating and ready to eat breakfast. He has not had a bowel movement. He denies fever, chills, chest pain, SOB, cough, or any other complaints at this time. Review of Systems General: No Chills, No Night Sweats HEENT: No Head Aches, No Visual Changes Pulmonary: No Dyspnea, No Cough Cardiovascular: No: Chest Pain Gastrointestinal: No: Nausea, Vomiting, Abdominal Pain Genitourinary: No Retention Musculoskeletal: other (right BKA) Focused Exam Lactate Level 02/02/22 11:25: Lactic Acid Level 1.84 Objective Exam Vital Signs Date Time Temp Pulse Resp B/P (MAP) Pulse Ox O2 Delivery O2 Flow Rate FiO2 02/03/22 08:06 37.1 94 18 132/69 (90) 96 Room Air 02/03/22 04:03 37.0 90 18 126/73 (90) 96 Room Air 02/03/22 01:00 83 02/03/22 00:05 36.9 85 18 115/70 (85) 96 Room Air 02/02/22 20:08 36.6 92 20 116/58 (77) 91 Room Air 02/02/22 19:00 92 02/02/22 18:45 37.6 96 20 122/58 (79) 93 Room Air 02/02/22 18:35 Room Air 02/02/22 18:30 36.8 12 113/60 (77) 94 Room Air 02/02/22 18:20 12 111/62 (78) 99 OxyMask 10.00 02/02/22 18:15 OxyMask 10.00 02/02/22 18:10 12 116/65 (82) 100 OxyMask 10.00 02/02/22 18:00 12 140/75 (96) 99 OxyMask 10.00 02/02/22 17:51 14 117/68 (84) 99 OxyMask 10.00 02/02/22 17:46 37.0 16 113/65 (81) 99 OxyMask 10.00 02/02/22 17:46 OxyMask 10.00 02/02/22 16:08 38.4 114 20 162/75 (104) 97 Room Air 02/02/22 14:00 37.2 109 18 144/78 (100) 99 Room Air 02/02/22 14:00 Room Air 02/02/22 13:00 107 19 146/66 96 Room Air 02/02/22 12:15 104 18 135/62 92 Room Air 02/02/22 10:55 36.3 112 20 161/87 98 Room Air 02/02/22 10:55 36.3 112 20 161/87 (111) 98 Room Air I & O 02/03/22 07:00 Intake Total 350 ml Output Total 850 ml Balance -500 ml Capillary Refill : Less Than 3 Seconds General Appearance: No Apparent Distress, WD/WN HEENT: PERRL/EOMI, Moist Mucous Membranes, Other (poor dentition) Neck: Normal Inspection, Supple Respiratory: Lungs Clear, Normal Breath Sounds, No Accessory Muscle Use, No Respiratory Distress Cardiovascular: Regular Rate, Rhythm, No Murmur, Tachycardia Peripheral Pulses: 2+ Radial Pulses (R), 2+ Radial Pulses (L) Gastrointestinal: normal bowel sounds, non tender, soft, no organomegaly Extremity: Other (Right BKA. Incision is clean dry and intact. No surrounding erythema. ) Neurologic/Psychiatric: Alert, Oriented x3, Normal Mood/Affect Skin: Normal Color, Warm/Dry, Erythema (RLE) Lymphatic: No Adenopathy Results Lab Laboratory Tests 02/02/22 11:25: White Blood Count 21.7H, Red Blood Count 3.79L, Hemoglobin 11.6L, Hematocrit 34L , Mean Corpuscular Volume 90, Mean Corpuscular Hemoglobin 31, Mean Corpuscular Hemoglobin Concent 34, Red Cell Distribution Width 12.4, Platelet Count 463H, Mean Platelet Volume 9.9, Immature Granulocyte % (Auto) 1, Neutrophils (%) (Auto) 89H, Lymphocytes (%) (Auto) 5L, Monocytes (%) (Auto) 5, Eosinophils (%) (Auto) 0, Basophils (%) (Auto) 0, Neutrophils # (Auto) 19.3H, Lymphocytes # (Auto) 1.1, Monocytes # (Auto) 1.0, Eosinophils # (Auto) 0.0, Basophils # (Auto) 0.0, Immature Granulocyte # (Auto) 0.2H, Neutrophils % (Manual) 92, Lymphocytes % (Manual) 6, Monocytes % (Manual) 1, Eosinophils % (Manual) 0, Basophils % (Manual) 0, Metamyelocytes % 1, Band Neutrophils 0, Sodium Level 121*L, Potassium Level 4.9, Chloride Level 82L, Carbon Dioxide Level 23, Anion Gap 16H, Blood Urea Nitrogen 37H, Creatinine 1.09, Estimat Glomerular Filtration Rate 81, BUN/Creatinine Ratio 34, Glucose Level 509*H, Lactic Acid Level 1.84, Calcium Level 9.2, Corrected Calcium 10.5H, Total Bilirubin 0.7, Aspartate Amino Transf (AST/SGOT) 12, Alanine Aminotransferase (ALT/SGPT) 7, Alkaline Phosphatase 166H, Total Protein 7.9, Albumin 2.4L 02/02/22 13:05: Glucometer 463*H 02/02/22 14:56: Glucometer 409*H 02/02/22 20:06: Glucometer 317H 02/02/22 23:35: Glucometer 275H 02/03/22 05:29: White Blood Count 14.5H, Red Blood Count 3.28L, Hemoglobin 9.8L, Hematocrit 30L, Mean Corpuscular Volume 92, Mean Corpuscular Hemoglobin 30, Mean Corpuscular Hemoglobin Concent 33, Red Cell Distribution Width 12.5, Platelet Count 412H, Mean Platelet Volume 9.7, Sodium Level 133L, Potassium Level 4.3, Chloride Level 99, Carbon Dioxide Level 22, Anion Gap 12, Blood Urea Nitrogen 33H, Creatinine 1.05, Estimat Glomerular Filtration Rate 84, BUN/Creatinine Ratio 31, Glucose Level 247H, Calcium Level 8.0L 02/03/22 05:30: 02/03/22 05:42: Glucometer 254H Assessment/Plan Assessment/Plan Assessment/Plan 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 He has minimal pain. Continue abx and pain med icine. Monitor labs as needed. Encourage PT and IS. AYDEN CLINTON DO 02/03/22 1431: Subjective Time Seen by a Provider: 10:41 Subjective/Events-last exam Pt seen and examined, no new complaints and states pain is mostly controlled. Review of Systems General: No Chills, No Night Sweats Pulmonary: No Dyspnea, No Cough Cardiovascular: No: Chest Pain Gastrointestinal: No: Nausea, Vomiting, Abdominal Pain Musculoskeletal: other (right BKA) Objective Exam General Appearance: No Apparent Distress, WD/WN HEENT: PERRL/EOMI, Moist Mucous Membranes Respiratory: Lungs Clear, Normal Breath Sounds, No Accessory Muscle Use, No Respiratory Distress Cardiovascular: Regular Rate, Rhythm, No Murmur Extremity: Other (Right BKA. Incision is clean dry and intact. No surrounding erythema. ) Neurologic/Psychiatric: Alert, Oriented x3 Assessment/Plan Assessment/Plan Assessment/Plan S/p Right BKA due to Gangrene of toes Right Lower Extremity r/o Osteomyelitis POD#1 Possible Necrotizing fasciitis of RLE Emphysematous osteomyelitis of RLE T2DM - uncontrolled S/p right BKA tolerating well. He has minimal pain. Continue abx and pain medicine. Monitor labs as needed. Encourage PT and IS. Supervisory-Addendum Brief Verification & Attestation Participated in pt care: history, MDM, physical Personally performed: exam, history, MDM, supervision of care Care discussed with: Medical Student Procedures: n/a Verification and Attestation of Medical Student E/M Service A medical student performed and documented this service. I then reviewed and verified all information documented by the medical student and made modifications to such information, when appropriate. I personally performed a physical exam, medical decision making and then discussed any differences between the notes and made revisions as necessary to create one note. Ayden Clinton , 02/03/22 , 14:31 GODWIN ALLISON Feb 03, 2022 08:21 AYDEN CLINTON DO Feb 03, 2022 14:31
--- NOTE | 2022-02-03 11:08 | Progress Note - Hospitalist ---
Subjective HPI/CC On Admission Date Seen by Provider: Feb 03, 2022 Patient is a 56-year-old male with past medical history of zcy-bwqrowm-xfbablajr diabetes type 2 and hypertension who presented to the emergency department due to foot infection. He is uncertain when all of his symptoms started but thinks it is been worsening over the past 3 weeks. He does have black toes on his right foot and he is unaware how long they have been black for. He denies any fevers. He does have redness that is spreading up his leg and he was seen at an urgent care this morning and referred to the emergency department. He was found to have gangrenous toes and CT revealed diffuse gas throughout his foot and he was admitted for IV antibiotics and very likely amputation. Subjective/Events-last exam Pt reports feeling ok. Having pain but controlled with medication. Pt unaware of how much was amputated so informed him on BKA and visibly upset afterwards. Focused Exam Lactate Level 02/02/22 11:25: Lactic Acid Level 1.84 Objective Exam Vital Signs Vital Signs Date Time Temp Pulse Resp B/P (MAP) Pulse Ox O2 Delivery O2 Flow Rate FiO2 02/03/22 08:06 37.1 94 18 132/69 (90) 96 Room Air 02/02/22 18:20 10.00 Capillary Refill : Less Than 3 Seconds General Appearance: No Apparent Distress, Chronically ill Respiratory: Lungs Clear, No Respiratory Distress Cardiovascular: Regular Rate, Rhythm, No Murmur Extremity: Other (right BKA, surgical wound dressed) Neurologic/Psychiatric: Alert, Oriented x3 Results/Procedures Lab Laboratory Tests 02/02/22 11:25 02/03/22 05:29 Patient resulted labs reviewed. Imaging: Reviewed Imaging Report Assessment/Plan Assessment and Plan Assess & Plan/Chief Complaint sepsis gangrene wet and dry of right lower extremity with osteomyelitis and nec fasc POA Continue on IV abx POD #1 Blood cx positive x2 for GPC PT/OT IRF eval NIDDMII On metformin at home SSI Will check a1c BS 247 this AM Add Levemir HTN Well controlled now DVT ppx: Lovenox when ok with surgery ZOEY ANGULO MD Feb 03, 2022 11:08
[2022-02-03 11:32] VITALS: BP 113/59
--- NOTE | 2022-02-03 14:13 | Occupational Therapy Eval ---
OT Evaluation-General/PLF Medical Diagnosis Admission Date Feb 02, 2022 at 14:14 Medical Diagnosis: s/p BKA; sepsis/wet gangrene Onset Date: Feb 02, 2022 Therapy Diagnosis Therapy Diagnosis: reduced adl status Precautions Precautions/Isolations: Fall Prevention, Standard Precautions Referral Referral Reason: Evaluation/Treatment Medical History Pertinent Medical History: DM, HTN Current History s/p BKA Per patient, he lives alone in a trailer. He was indep with adls and iadls. 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 He recently started using a "broomstick" as a walking stick. Reviewed History: Yes Social History Home: Single Level (trailer ) Current Living Status: Alone Entry Into Home: Stairs With Railing Steps Into Home: 6 ADL-Prior Level of Function SCALE: Activities may be completed with or without assistive devices. 9-Xecfgbqsao-pcuswym completes the activity by him/herself with no assistance from a helper. 5-Set-up or Clean-up Assistance-helper sets up or cleans up; patient completes activity. [place] assists only prior to or following the activity. 4-Supervision or Touching Assistance-helper provides verbal cues and/or touching/steadying and/or contact guard assistance as patient completes activity. Assistance may be provided throughout the activity or intermittently. 3-Partial/Moderate Assistance-helper does LESS THAN HALF the effort. [place] li fts, holds or supports trunk or limbs, but provides less than half the effort. 2-Substantial/Maximal Assistance-helper does MORE THAN HALF the effort. [place] lifts or holds trunk or limbs and provides more than half the effort. 2-Jhugkhgpj-rtabtg does ALL the effort. Patient does none of the effort to complete the activity. Or, the assistance of 2 or more helpers is required for the patient to complete the activity. If activity was not attempted, code reason: 7-Patient Refused. 9-Not Applicable-not attempted and the patient did not perform the activity before the current illness, exacerbation or injury. 10-Not Attempted due to Environmental Limitations-(lack of equipment, weather restraints, etc.). 88-Not Attempted due to Medical Conditions or Safety Concerns. Self Care: Independent Functional Cognition: Unknown Drive Self: Yes OT Current Status Subjective Pt reports pain as 5/10, yet grimaces with all movement. Appearance Pt left sitting in recliner, all needs within reach at therapy departure. Mental Status/Objective Patient Orientation: Person, Place Attachments: IV, Telemetry ADL-Treatment Eating (QC): 5 (per clinical judgment) Lower Body Dressing (QC): 2 (per clinical judment) On/Off Footwear (QC): 1 Toileting Hygiene (QC): 1 Pt supine in bed at therapy arrival. Appears apprehensive about getting out of bed. Agreeable with encouragement. Supine>sit: SBA with heavy reliance of bed rail, cues for sequencing, and extra time. Good sitting balance at edge. Dependent to don L sock after several failed attempts. Poor motor planning, problem solving and flexibility observed. Mod a to stand and maintain balance. Upon standing, pt noted to be incontinent of urine and bowels. Dependent for iva care. Anticipate dependency for clothing management at this time as pt relies heavily on BUE support for balance. He hopped within room with walker and mod a. Cues for improved walker safety/management. Pt is anxious with all activity. Education OT Patient Education: Correct positioning, Modified ADL techniques, Purpose of tx/functional activities, Reviewed precautions, Rehab process, Safety issues, Transfer techniques Teaching Recipient: Patient Teaching Methods: Demonstration, Discussion Response to Teaching: Verbalize Understanding, Reinforcement Needed OT Elementary Secretary Goals Retirement Goals Time Frame: Feb 17, 2022 Eating (QC): 6 Oral Hygiene (QC): 6 Toileting Hygiene (QC): 4 Shower/Bathe Self (QC): 4 Upper Body Dressing (QC): 5 Lower Body Dressing (QC): 4 On/Off Footwear (QC): 4 1=Demonstrate adherence to instructed precautions during ADL tasks. 2=Patient will verbalize/demonstrate understanding of assistive devices/modifications for ADL. 3=Patient will improve strength/tolerance for activity to enable patient to perform ADL's. OT Education/Plan Problem List/Assessment Assessment: Decreased Activ Tolerance, Decreased Safety Aware, Dependent Transfers, Impaired Cognition, Impaired Funct Balance, Impaired I ADL's, Impa ired Self-Care Skills Discharge Recommendations Plan/Recommendations: Continue POC Therapy Discharge Recommendati: Post Acute OT Treatment Plan/Plan of Care Treatment,Training & Education: Yes Patient would benefit from OT for education, treatment and training to promote independence in ADL's, mobility, safety and/or upper extremity function for ADL's. Plan of Care: ADL Retraining, Cognitive Retraining, Concurrent Therapy, Functional Mobility, Group Exercise/Act as Ind, UE Funct Exercise/Act, W/C Management Training Treatment Duration: Feb 17, 2022 Frequency: 3 times per week (3-5x/week) Estimated Hrs Per Day: .25 hour per day Agreement: Yes Rehab Potential: Fair Time/GCodes Start Time: 13:17 Stop Time: 13:31 Total Time Billed (hr/min): 14 Billed Treatment Time 1 visit Licha Castaneda OT Feb 03, 2022 14:13
--- NOTE | 2022-02-03 14:13 | Physical Therapy Evaluation ---
PT Evaluation-General Medical Diagnosis Admission Date Feb 02, 2022 at 14:14 Medical Diagnosis: sepsis/wet gangrene Onset Date: Feb 02, 2022 Therapy Diagnosis Therapy Diagnosis: impaired mobility/weakness Precautions Precautions/Isolations: Fall Prevention, Standard Precautions Referral Physician: Kika Reason for Referral: Evaluation/Treatment Medical History Pertinent Medical History: DM, HTN Additional Medical History s/p right BKA Current History ER secondary to right LE pain and redness Reviewed History: Yes Social History Home: Single Level ([place]) Current Living Status: Other Family (mother) Entry Into Home: Stairs With Railing PT Steps Into Home: 6 Prior Prior Level of Function SCALE: Activities may be completed with or without assistive devices. 8-Gcdlboyhbt-trkpvqo completes the activity by him/herself with no assistance from a helper. 5-Set-up or Clean-up Assistance-helper sets up or cleans up; patient completes activity. [place] assists only prior to or following the activity. 4-Supervision or Touching Assistance-helper provides verbal cues and/or touching/steadying and/or contact guard assistance as patient completes activity. Assistance may be provided throughout the activity or intermittently. 3-Partial/Moderate Assistance-helper does LESS THAN HALF the effort. [place] lifts, holds or supports trunk or limbs, but provides less than half the effort. 2-Substantial/Maximal Assistance-helper does MORE THAN HALF the effort. [place] lifts or holds trunk or limbs and provides more than half the effort. 8-Svhghhfae-qkderu does ALL the effort. Patient does none of the effort to complete the activity. Or, the assistance of 2 or more helpers is required for the patient to complete the activity. If activity was not attempted, code reason: 7-Patient Refused. 9-Not Applicable-not attempted and the patient did not perform the activity before the current illness, exacerbation or injury. 10-Not Attempted due to Environmental Limitations-(lack of equipment, weather restraints, etc.). 88-Not Attempted due to Medical Conditions or Safety Concerns. Bed Mobility: 6 Transfers (B,C,W/C): 6 Gait: 6 Stairs: 6 Indoor Mobility (Ambulation): Independent Stairs: Independent Prior Devices Use: None PT Evaluation-Current Subjective Patient reports he had been using a broom as a "walking stick" for the past couple of weeks due to LE pain. Pain Numeric Pain Scale: 5-Moderate Pain Location: Right Location Body Site: Knee Pain Description: Acute Objective Patient Orientation: Person, Time, Situation Attachments: IV ROM/Strength ROM Lower Extremities right knee flexion 90 degrees/extension 10 degrees left LE WFL Strength Lower Extremities right LE 3-/5 grossly/left LE 4-/5 grossly Integumentary/Posture Integumentary refer to nursing notes Bowel Incontinence: Yes Bladder Incontinence: Yes Posture WFL Neuromuscular (Tone, Coordination, Reflexes) slightly diminished coordination due to recent surgery and right BKA Sensory Vision: Wears Glasses Hearing: Functional Sensation Right Lower Extremit: Impaired Sensation Left Lower Extremity: Impaired Transfers Roll Left to Right (QC): 3 Sit to Lying (QC): 3 Lying to Sitting/Side of Bed(Q: 3 Sit to Stand (QC): 3 Chair/Fmj-qk-Nemsh Xfer(QC): 3 Gait Does the Patient Walk?: Yes Mode of Locomotion: Both Anticipated Mode of Locomotion: Both Walk 10 feet (QC): 3 Walk 50 ft with 2 Turns(QC): 88 Walk 150 ft (QC): 88 Distance: 15' Gait Assistive Device: FWW Comments/Gait Description min to mod assist with all mobility due to weakness and fear Balance Sitting Static: Fair Sitting Dynamic: Fair Standing Static: Fair Standing Dynamic: Fair Assessment/Needs 56 y.o. male, will benefit from skilled PT to address functional strength and mobility to improve current LOF. From a PT standpoint, patient would benefit from ARU to ensure safe return to home with mother at maximum LOF. Rehab Potential: Fair PT Halfway Goals Halfway Goals PT Halfway Goals Time Frame: Feb 19, 2022 Roll Left & Right (QC): 6 Sit to Lying (QC): 6 Lying-Sitting on Side/Bed(QC): 6 Sit to Stand (QC): 4 Chair/Aek-qw-Kajty Xfer(QC): 4 Toilet Transfer (QC): 4 Walk 10 feet (QC): 4 Walk 50ft with 2 Turns (QC): 4 Walk 150 ft (QC): 4 PT Plan Problem List Problem List: Activity Tolerance, Functional Strength, Safety, Balance, Gait, Transfer, Bed Mobility Treatment/Plan Treatment Plan: Continue Plan of Care Treatment Plan: Bed Mobility, Education, Functional Activity Alyssa, Functional Strength, Gait, Safety, Therapeutic Exercise, Transfers Treatment Duration: Feb 19, 2022 Frequency: 11 times per week Estimated Hrs Per Day: .5 hour per day Patient and/or Family Agrees t: Yes Time/GCodes Time In: 1317 Time Out: 1333 Total Billed Treatment Time: 16 Total Billed Treatment 1 visit [facility] 16 min SANTIAGO ZHANG PT Feb 03, 2022 14:13
[2022-02-03 15:37] VITALS: BP 126/72
[2022-02-03 19:05] VITALS: BP 119/60
[2022-02-04 00:05] VITALS: BP 112/69
[2022-02-04] MEDS: VANCOMYCIN 1250 MG/NS 250 ML IVPB IV SCH ×2 (03:21)
[2022-02-04 04:28] VITALS: BP 107/66
[2022-02-04] MEDS: inSUlin ASPART (NovoLOG) 1 UNIT/0.01 ML (CHARGE PER UNIT) SC SCH ×4 (06:27→20:34)
[2022-02-04] MEDS: NS IV 1000 ML 1,000 ML IV SCH ×3 (06:27→15:55)
[2022-02-04 08:00] VITALS: BP 135/78
[2022-02-04 08:33] LABS: HEMATOCRIT 31 % (40-54); HEMOGLOBIN 9.8 g/dL (13.3-17.7); MEAN CORPUSCULAR HEMOGLOBIN 30 pg (25-34); MEAN CORPUSCULAR HGB CONC 32 g/dL (32-36); MEAN CORPUSCULAR VOLUME 94 fL (80-99); MEAN PLATELET VOLUME 9.6 fL (9.0-12.2); PLATELET COUNT 431 10^3/uL (130-400); WHITE BLOOD COUNT 10.2 10^3/uL (4.3-11.0)
[2022-02-04 08:40] LABS: CALCIUM 7.5 MG/DL (8.5-10.1); CREATININE SERUM 1.33 MG/DL (0.60-1.30); POTASSIUM 4.4 MMOL/L (3.6-5.0)
--- NOTE | 2022-02-04 09:21 | Progress Note - Surgery ---
GODWIN ALLISON 02/04/22 0921: Subjective Date Seen by a Provider: Feb 04, 2022 Subjective/Events-last exam Pt resting comfortably in bed. States his pain is well controlled. He is eating, drinking, urinating, and having normal bowel movements. He denies fever, chills, sweats, N/V/D, chest pain, SOB. Review of Systems General: No Chills, No Night Sweats, No Fatigue HEENT: No Visual Changes Pulmonary: No Dyspnea Cardiovascular: No: Chest Pain Gastrointestinal: No: Nausea, Vomiting, Abdominal Pain Genitourinary: No Retention Musculoskeletal: leg pain (right BKA\) Focused Exam Lactate Level 02/02/22 11:25: Lactic Acid Level 1.84 Objective Exam Vital Signs Date Time Temp Pulse Resp B/P (MAP) Pulse Ox O2 Delivery O2 Flow Rate FiO2 02/04/22 07:00 85 02/04/22 04:28 36.9 89 16 107/66 (80) 96 Room Air 02/04/22 01:00 90 02/04/22 00:05 36.6 89 18 112/69 (83) 97 Room Air 02/03/22 19:05 36.8 94 18 119/60 (79) 98 Room Air 02/03/22 19:00 100 02/03/22 15:37 36.3 92 18 126/72 (90) 97 Room Air 02/03/22 13:00 89 02/03/22 11:32 36.8 94 18 113/59 (77) 94 Room Air I & O 02/04/22 07:00 Intake Total 3142.5 ml Output Total 1150 ml Balance 1992.5 ml Capillary Refill : Less Than 3 Seconds General Appearance: No Apparent Distress, WD/WN, Thin HEENT: PERRL/EOMI, Moist Mucous Membranes, Other (poor dentition) Neck: Non Tender, Supple Respiratory: Lungs Clear, Normal Breath Sounds, No Accessory Muscle Use, No Respiratory Distress Cardiovascular: Regular Rate, Rhythm, No Murmur Peripheral Pulses: 2+ Radial Pulses (R), 2+ Radial Pulses (L) Gastrointestinal: normal bowel sounds, non tender, soft, no organomegaly Extremity: No Calf Tenderness, Other (Righ BKA, incisions clean dry and intact. No surrounding erythema. Pain well controlled. ) Neurologic/Psychiatric: Alert, Oriented x3, Normal Mood/Affect Skin: Normal Color, Warm/Dry, Erythema (RLE) Lymphatic: No Adenopathy (of supraclavicular or axillary LNs) Results Lab Laboratory Tests 02/03/22 11:04: Glucometer 317H 02/03/22 15:42: Glucometer 248H 02/03/22 20:36: Glucometer 257H 02/04/22 05:22: Glucometer 226H 02/04/22 08:19: White Blood Count 10.2, Red Blood Count 3.23L, Hemoglobin 9.8L, Hematocrit 31L, Mean Corpuscular Volume 94, Mean Corpuscular Hemoglobin 30, Mean Corpuscular Hemoglobin Concent 32, Red Cell Distribution Width 12.9, Platelet Count 431H, Mean Platelet Volume 9.6, Sodium Level 133L, Potassium Level 4.4, Chloride Level 102, Carbon Dioxide Level 23, Anion Gap 8, Blood Urea Nitrogen 26H, Creatinine 1.33H, Estimat Glomerular Filtration Rate 64, BUN/Creatinine Ratio 20, Glucose Level 207H, Calcium Level 7.5L Microbiology 02/02/22 Gram Stain - Final, Resulted 02/02/22 Wound Culture - Preliminary, Resulted Mixed Bacterial Ryann Proteus species Probable Pseudomonas 02/02/22 Blood Culture - Preliminary, Resulted Strep, Beta Hemolytic Group B Assessment/Plan Assessment/Plan Assessment/Plan 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 He has minimal pain. Continue abx and pain medicine. Monitor labs as needed. Can move to rehab floor for PT and prosthesis consult. JOSE LEARY DO 02/04/22 1634: Subjective Subjective/Events-last exam Pain controlled. Tolerating diet. No new complaints. Denies n/v fever sweats chills shortness of breath or chest pain. Objective Exam General Appearance: No Apparent Distress, WD/WN HEENT: PERRL/EOMI, Normal ENT Inspection Neck: Non Tender, Supple Respiratory: Chest Non Tender, No Accessory Muscle Use, No Respiratory Distress Cardiovascular: Regular Rate, Rhythm, No JVD Gastrointestinal: non tender, soft Extremity: No Calf Tenderness, Other (Righ BKA, incisions clean dry and intact. No surrounding erythema. 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 He has minimal pain. Continue abx and pain medicine. Monitor labs as needed. Can move to rehab floor for PT and prosthesis consult. Supervisory-Addendum Brief Verification & Attestation Participated in pt care: history, MDM, physical Personally performed: exam, history, MDM, supervision of care Care discussed with: Medical Student Procedures: n/a Results interpretation: Verified all documentation Verification and Attestation of Medical Student E/M Service A medical student performed and documented this service in my presence. I reviewed and verified all information documented by the medical student and made modifications to such information, when appropriate. I personally performed the physical exam and medical decision making. Jose Leary, Feb 04, 2022,16:34 GODWIN ALLISON Feb 04, 2022 09:21 JOSE LEARY DO Feb 04, 2022 16:34
--- NOTE | 2022-02-04 10:44 | Physical Therapy Daily Note ---
PT Daily Note-Current Subjective Patient incontinent urine and BM again. Agrees to PT. dependent assist to cleanse patient. Mental Status Patient Orientation: Person, Time, Situation Attachments: IV Transfers SCALE: Activities may be completed with or without assistive devices. 4-Ajosyspjda-jtixqlh completes the activity by him/herself with no assistance from a helper. 5-Set-up or Clean-up Assistance-helper sets up or cleans up; patient completes activity. [place] assists only prior to or following the activity. 4-Supervision or Touching Assistance-helper provides verbal cues and/or touching/steadying and/or contact guard assistance as patient completes activity. Assistance may be provided throughout the activity or intermittently. 3-Partial/Moderate Assistance-helper does LESS THAN HALF the effort. [place] lifts, holds or supports trunk or limbs, but provides less than half the effort. 2-Substantial/Maximal Assistance-helper does MORE THAN HALF the effort. [place] lifts or holds trunk or limbs and provides more than half the effort. 7-Iynrrmpng-qergwh does ALL the effort. Patient does none of the effort to complete the activity. Or, the assistance of 2 or more helpers is required for the patient to complete the activity. If activity was not attempted, code reason: 7-Patient Refused. 9-Not Applicable-not attempted and the patient did not perform the activity before the current illness, exacerbation or injury. 10-Not Attempted due to Environmental Limitations-(lack of equipment, weather restraints, etc.). 88-Not Attempted due to Medical Conditions or Safety Concerns. Sit to Lying (QC): 6 Lying to Sitting/Side of Bed(Q: 6 Sit to Stand (QC): 3 Chair/Fme-ex-Wwgld Xfer(QC): 3 Toilet Transfer (QC): 3 Gait Training Distance: 50' Walk 10 feet (QC): 3 Walk 50 ft with 2 Turns(QC): 3 Walk 150 ft (QC): 88 Gait Assistive Device: FWW min to mod assist with gait training Exercises Supine Ex: Quad Set, Glut sets, Heel Slides, Straight leg raise, Hip abd/add Supine Reps: 15 (bilaterally) Assessment Patient tolerated treatment well and is on the toilet with call cord in hand. PT to increase activity as tolerated by patient. PT Correction Goals Correction Goals PT Correction Goals Time Frame: Feb 19, 2022 Roll Left & Right (QC): 6 Sit to Lying (QC): 6 Lying-Sitting on Side/Bed(QC): 6 Sit to Stand (QC): 4 Chair/Sgi-dx-Xhqdp Xfer(QC): 4 Toilet Transfer (QC): 4 Walk 10 feet (QC): 4 Walk 50ft with 2 Turns (QC): 4 Walk 150 ft (QC): 4 PT Plan Treatment/Plan Treatment Plan: Continue Plan of Care Treatment Plan: Bed Mobility, Education, Functional Activity Alyssa, Functional Strength, Gait, Safety, Therapeutic Exercise, Transfers Treatment Duration: Feb 19, 2022 Frequency: 11 times per week Estimated Hrs Per Day: .5 hour per day Patient and/or Family Agrees t: Yes Time/GCodes Time In: 1000 Time Out: 1023 Total Billed Treatment Time: 23 Total Billed Treatment 1 visit EX 13 min GT 10 min SANTIAGO ZHANG PT Feb 04, 2022 10:44
--- NOTE | 2022-02-04 10:55 | Progress Note - Hospitalist ---
Subjective HPI/CC On Admission Date Seen by Provider: Feb 04, 2022 Time Seen by Provider: 10:53 Patient is a 56-year-old male with past medical history of njw-kehwest-vqsbfzytg diabetes type 2 and hypertension who presented to the emergency department due to foot infection. He is uncertain when all of his symptoms started but thinks it is been worsening over the past 3 weeks. He does have black toes on his right foot and he is unaware how long they have been black for. He denies any fevers. He does have redness that is spreading up his leg and he was seen at an urgent care this morning and referred to the emergency department. He was found to have gangrenous toes and CT revealed diffuse gas throughout his foot and he was admitted for IV antibiotics and very likely amputation. Subjective/Events-last exam Pt reports doing well. No complaints. Requesting social work to him with getting information to his work for short term disability. Focused Exam Lactate Level 02/02/22 11:25: Lactic Acid Level 1.84 Objective Exam Vital Signs Vital Signs Date Time Temp Pulse Resp B/P (MAP) Pulse Ox O2 Delivery O2 Flow Rate FiO2 02/04/22 08:00 36.7 90 18 135/78 (97) 98 Room Air 02/02/22 18:20 10.00 Capillary Refill : Less Than 3 Seconds General Appearance: No Apparent Distress, Chronically ill Respiratory: Lungs Clear, No Respiratory Distress Cardiovascular: Regular Rate, Rhythm, No Murmur Extremity: Other (s/p BKA) Neurologic/Psychiatric: Alert, Oriented x3 Results/Procedures Lab Laboratory Tests 02/04/22 08:19 Patient resulted labs reviewed. Imaging: Reviewed Imaging Report Assessment/Plan Assessment and Plan Assess & Plan/Chief Complaint sepsis gangrene wet and dry of right lower extremity with osteomyelitis and nec fasc POA Continue on IV abx, Dc Vanc POD #2 Blood cx positive for beta hemolytic strep PT/OT IRF eval- hopeful for DC if insurance authorization comes through NIDDMII On metformin at home SSI A1c 12.5 BS 247 this AM Add Levemir DM education HTN Well controlled now DVT ppx: Lovenox when ok with surgery ZOEY ANGULO MD Feb 04, 2022 10:55
[2022-02-04] MEDS: ENOXAPARIN 40 MG/0.4 ML (LOVENOX) SYR SQ SCH (11:42)
[2022-02-04] MEDS: PIPERACILLIN SODIUM/TAZOBACTAM 4.5 GM in NS (IVPB) 100 ML IV SCH ×2 (11:42→17:54)
[2022-02-04 11:53] VITALS: BP 123/72
--- NOTE | 2022-02-04 13:54 | Occupational Ther Daily Note ---
OT Current Status-Daily Note Subjective Pt in bed, agreeable to OT Tx. Pt has 5-6 steps with railing to enter his house that he is concerned with. Pt reports poor vision, difficulty with reading written information, and unable to read board in his room. Pt does report he can locate the call button block mason light ADL-Treatment Therapy Code Descriptions/Definitions Functional [place] Measure: 0=Not Assessed/NA 4=Minimal Assistance 1=Total Assistance 5=Supervision or Setup 2=Maximal Assistance 6=Modified [place] 3=Moderate Assistance 7=Complete IndependenceSCALE: Activities may be completed with or without assistive devices. 0-Gseqxxkfop-zeburtb completes the activity by him/herself with no assistance from a helper. 5-Set-up or Clean-up Assistance-helper sets up or cleans up; patient completes activity. [place] assists only prior to or following the activity. 4-Supervision or Touching Assistance-helper provides verbal cues and/or touching/steadying and/or contact guard assistance as patient completes activity. Assistance may be provided throughout the activity or intermittently. 3-Partial/Moderate Assistance-helper does LESS THAN HALF the effort. [place] lifts, holds or supports trunk or limbs, but provides less than half the effort. 2-Substantial/Maximal Assistance-helper does MORE THAN HALF the effort. [place] lifts or holds trunk or limbs and provides more than half the effort. 4-Qeyxboayn-yczfoe does ALL the effort. Patient does none of the effort to complete the activity. Or, the assistance of 2 or more helpers is required for the patient to complete the activity. If activity was not attempted, code reason: 7-Patient Refused. 9-Not Applicable-not attempted and the patient did not perform the activity before the current illness, exacerbation or injury. 10-Not Attempted due to Environmental Limitations-(lack of equipment, weather restraints, etc.). 88-Not Attempted due to Medical Conditions or Safety Concerns. Other Treatment Pt declines ADLs at this time, agreeable to BUE exercies in order to increase strength and activity tolerance. Pt completed x20 reps each of the following exercises, BUES: shoulder flexion, front punch, finger flexion/extension. Pt demo'd some exercises of his own including neck flexion/extension and lateral flexion. Post tx, pt in bed, call light in reach and all needs met. Education OT Patient Education: Correct positioning, Energy conservation, Modified ADL techniques, Progress toward Goal/Update tx plan, Purpose of tx/functional activities, Rehab process Teaching Recipient: Patient Teaching Methods: Discussion Response to Teaching: Verbalize Understanding OT Mcfp Goals Front Desk Monitor Goals Time Frame: Feb 17, 2022 Eating (QC): 6 Oral Hygiene (QC): 6 Toileting Hygiene (QC): 4 Shower/Bathe Self (QC): 4 Upper Body Dressing (QC): 5 Lower Body Dressing (QC): 4 On/Off Footwear (QC): 4 1=Demonstrate adherence to instructed precautions during ADL tasks. 2=Patient will verbalize/demonstrate understanding of assistive devices/modifications for ADL. 3=Patient will improve strength/tolerance for activity to enable patient to perform ADL's. OT Education/Plan Problem List/Assessment Assessment: Decreased Activ Tolerance, Decreased UE Strength, Impaired Funct Balance, Impaired I ADL's, Impaired Self-Care Skills Discharge Recommendations Plan/Recommendations: Continue POC Treatment Plan/Plan of Care Patient would benefit from OT for education, treatment and training to promote independence in ADL's, mobility, safety and/or upper extremity function for ADL's. Plan of Care: ADL Retraining, Cognitive Retraining, Concurrent Therapy, Func tional Mobility, Group Exercise/Act as Ind, UE Funct Exercise/Act, W/C Management Training Treatment Duration: Feb 17, 2022 Frequency: 3 times per week (3-5x/week) Estimated Hrs Per Day: .25 hour per day Agreement: Yes Rehab Potential: Fair Time/GCodes Start Time: 13:32 Stop Time: 13:44 Total Time Billed (hr/min): 12 Billed Treatment Time 1, EX CIRA SARGENT OT Feb 04, 2022 13:54
--- NOTE | 2022-02-04 14:35 | Physical Therapy Daily Note ---
PT Daily Note-Current Subjective Patient agrees to exercises. Transfers SCALE: Activities may be completed with or without assistive devices. 9-Maxbvmytdn-gqkhjrt completes the activity by him/herself with no assistance from a helper. 5-Set-up or Clean-up Assistance-helper sets up or cleans up; patient completes activity. [place] assists only prior to or following the activity. 4-Supervision or Touching Assistance-helper provides verbal cues and/or touching/steadying and/or contact guard assistance as patient completes activity. Assistance may be provided throughout the activity or intermittently. 3-Partial/Moderate Assistance-helper does LESS THAN HALF the effort. [place] lifts, holds or supports trunk or limbs, but provides less than half the effort. 2-Substantial/Maximal Assistance-helper does MORE THAN HALF the effort. [place] lifts or holds trunk or limbs and provides more than half the effort. 5-Jsmyhboke-jcswxk does ALL the effort. Patient does none of the effort to complete the activity. Or, the assistance of 2 or more helpers is required for the patient to complete the activity. If activity was not attempted, code reason: 7-Patient Refused. 9-Not Applicable-not attempted and the patient did not perform the activity before the current illness, exacerbation or injury. 10-Not Attempted due to Environmental Limitations-(lack of equipment, weather restraints, etc.). 88-Not Attempted due to Medical Conditions or Safety Concerns. Exercises Supine Ex: Quad Set, Heel Slides, Straight leg raise, Hip abd/add Supine Reps: 15 (x 2 sets bilaterally) Assessment Patient to transfer to ARU in a.m. PT to continue to address functional strengthening and mobility. PT Senior Care Goals Poising Inspector Goals PT Senior Care Goals Time Frame: Feb 19, 2022 Roll Left & Right (QC): 6 Sit to Lying (QC): 6 Lying-Sitting on Side/Bed(QC): 6 Sit to Stand (QC): 4 Chair/Zes-dk-Ljcpb Xfer(QC): 4 Toilet Transfer (QC): 4 Walk 10 feet (QC): 4 Walk 50ft with 2 Turns (QC): 4 Walk 150 ft (QC): 4 PT Plan Treatment/Plan Treatment Plan: Continue Plan of Care Treatment Plan: Bed Mobility, Education, Functional Activity Alyssa, Functional Strength, Gait, Safety, Therapeutic Exercise, Transfers Treatment Duration: Feb 19, 2022 Frequency: 11 times per week Estimated Hrs Per Day: .5 hour per day Patient and/or Family Agrees t: Yes Time/GCodes Time In: 1419 Time Out: 1429 Total Billed Treatment Time: 10 Total Billed Treatment 1 visit EX 10 min SANTIAGO ZHANG PT Feb 04, 2022 14:35
[2022-02-04] MEDS ORDERED: TROUGH ORDER-PHARMACY XX NR (15:00)
[2022-02-04 16:14] VITALS: BP 133/73
[2022-02-04 20:10] VITALS: BP 115/70
[2022-02-05] VITALS: BP 115/68
[2022-02-05] MEDS: NS IV 1000 ML 1,000 ML IV SCH (02:42)
[2022-02-05] MEDS: PIPERACILLIN SODIUM/TAZOBACTAM 4.5 GM in NS (IVPB) 100 ML IV SCH ×2 (02:42→10:56)
[2022-02-05 04:00] VITALS: BP 137/76
[2022-02-05] MEDS: inSUlin ASPART (NovoLOG) 1 UNIT/0.01 ML (CHARGE PER UNIT) SC SCH ×2 (05:56→11:53)
--- NOTE | 2022-02-05 07:47 | Progress Note - Surgery ---
LISAYAHAIRA 02/05/22 0747: Subjective Date Seen by a Provider: Feb 05, 2022 Time Seen by a Provider: 07:44 Subjective/Events-last exam Pt is resting comfortably in bed. Pt states that his leg has been sore with movement but otherwise has no complaints. Pt has been tolerating diet and contin ues to void and have bowel movements. Pt denies any n/v, CP, SOB, and sweats. Review of Systems General: No Chills, No Night Sweats HEENT: No Head Aches, No Visual Changes Pulmonary: No Dyspnea, No Cough Cardiovascular: No: Chest Pain, Palpitations Gastrointestinal: No: Nausea, Vomiting Genitourinary: No Dysuria, No Frequency Musculoskeletal: No: neck pain, shoulder pain Neurological: No: Weakness, Numbness Focused Exam Lactate Level 02/02/22 11:25: Lactic Acid Level 1.84 Objective Exam Vital Signs Date Time Temp Pulse Resp B/P (MAP) Pulse Ox O2 Delivery O2 Flow Rate FiO2 02/05/22 07:00 83 02/05/22 04:00 37.0 85 16 137/76 (96) 97 Room Air 02/05/22 01:00 86 02/05/22 00:00 37.0 85 16 115/68 (84) 96 Room Air 02/04/22 20:10 37.2 87 20 115/70 (85) 95 Room Air 02/04/22 20:00 Room Air 02/04/22 19:00 90 02/04/22 16:14 37.8 92 18 133/73 (93) 95 Room Air 02/04/22 15:57 37.8 02/04/22 12:46 88 02/04/22 11:53 37.1 90 18 123/72 (89) 94 Room Air 02/04/22 08:00 Room Air 02/04/22 08:00 36.7 90 18 135/78 (97) 98 Room Air I & O 02/05/22 07:00 Intake Total 3915 ml Output Total 400 ml Balance 3515 ml Capillary Refill : Less Than 3 Seconds General Appearance: No Apparent Distress, WD/WN HEENT: PERRL/EOMI, Normal ENT Inspection Neck: Non Tender, Supple Respiratory: No Accessory Muscle Use, No Respiratory Distress Cardiovascular: No Edema, No JVD Peripheral Pulses: 2+ Radial Pulses (R), 2+ Radial Pulses (L) Gastrointestinal: non tender, soft Extremity: No Calf Tenderness, Other (Righ BKA, incisions clean dry and intact. No surrounding erythema. ) Neurologic/Psychiatric: Alert, Oriented x3, Normal Mood/Affect Skin: Normal Color, Warm/Dry Lymphatic: No Adenopathy (of supraclavicular or axillary LNs) Results Lab Laboratory Tests 02/04/22 08:19: White Blood Count 10.2, Red Blood Count 3.23L, Hemoglobin 9.8L, Hematocrit 31L, Mean Corpuscular Volume 94, Mean Corpuscular Hemoglobin 30, Mean Corpuscular Hemoglobin Concent 32, Red Cell Distribution Width 12.9, Platelet Count 431H, Mean Platelet Volume 9.6, Sodium Level 133L, Potassium Level 4.4, Chloride Level 102, Carbon Dioxide Level 23, Anion Gap 8, Blood Urea Nitrogen 26H, Creatinine 1.33H, Estimat Glomerular Filtration Rate 64, BUN/Creatinine Ratio 20, Glucose Level 207H, Calcium Level 7.5L 02/04/22 11:15: Glucometer 310H 02/04/22 15:57: Glucometer 282H 02/04/22 20:14: Glucometer 266H 02/05/22 05:36: Glucometer 163H Microbiology 02/02/22 Gram Stain - Final, Resulted 02/02/22 Wound Culture - Preliminary, Resulted Mixed Bacterial Ryann Proteus species Probable Pseudomonas Culture In Progress 02/02/22 Blood Culture - Preliminary, Resulted Strep agalactiae Group B Assessment/Plan Assessment/Plan Assessment/Plan 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 Pain controlled. Denies n/v fever sweats chills shortness of breath or chest pain. To IRF today likely. Objective Exam General Appearance: No Apparent Distress, WD/WN HEENT: PERRL/EOMI, Normal ENT Inspection Neck: Non Tender, Supple Respiratory: Chest Non Tender, No Accessory Muscle Use, No Respiratory Distress Cardiovascular: Regular Rate, Rhythm, No JVD Gastrointestinal: non tender, soft Extremity: Other (Righ BKA, incisions clean dry and intact. No surrounding erythema. 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 Right Lower Extremity r/o Osteomyelitis Possible Necrotizing fasciitis of RLE Emphysematous osteomyelitis of RLE T2DM - uncontrolled Continue abx and pain management Pt will be transferred to rehab floor for PT and prosthesis consult Supervisory-Addendum Brief Verification & Attestation Participated in pt care: history, MDM, physical Personally performed: exam, history, MDM, supervision of care Care discussed with: Medical Student Procedures: n/a Results interpretation: Verified all documentation Verification and Attestation of Medical Student E/M Service A medical student performed and documented this service in my presence. I reviewed and verified all information documented by the medical student and made modifications to such information, when appropriate. I personally performed the physical exam and medical decision making. Jose Leary, Feb 05, 2022,14:02 YAHAIRA GONZALEZ Feb 05, 2022 07:47 JOSE LEARY DO Feb 05, 2022 14:02
[2022-02-05 07:54] VITALS: BP 149/89
[2022-02-05] MEDS: ENOXAPARIN 40 MG/0.4 ML (LOVENOX) SYR SQ SCH (10:56)
[2022-02-05 11:49] VITALS: BP 128/73
--- NOTE | 2022-02-05 18:02 | Discharge Summary ---
Discharge Summary Hospital Course Problems/Dx: (1) Sepsis Status: Acute Qualifiers: Qualified Codes: A41.9 - Sepsis, unspecified organism (2) Osteomyelitis Status: Acute Qualifiers: (3) Necrotizing fasciitis Status: Acute (4) Below-knee amputation of right lower extremity Status: Acute (5) Insulin dependent diabetes mellitus Status: Acute Hospital Course Date of Admission: Feb 02, 2022 at 14:14 Admission Diagnosis : Sepsis due to osteomyelitis Family Physician/Provider: Winnie Parry Aprn Date of Discharge: 02/05/22 Discharge Diagnosis: Sepsis due to osteomyelitis, necrotizing fasciitis, right lower extremity BKA Hospital Course: Rosalio Vega is a 56 year old male who was admitted with sepsis due to osteomyelitis of his right lower extremity. Surgery was consulted and assisted with his care. CT lower extremity revealed extensive subcutanous gas collection consistent with necrotizing fasciitis. He was taken to surgery and had a right BKA. He was treated with IV antibiotics and fluids. His course was complicated by uncontrolled type II diabetes mellitus. He was started on insulin. He worked with therapy and was discharged to inpatient rehab. Labs and Pending Lab Test: Laboratory Tests 02/04/22 20:14: Glucometer 266H 02/05/22 05:36: Glucometer 163H 02/05/22 11:25: Glucometer 229H Microbiology 02/02/22 Gram Stain - Final, Resulted 02/02/22 Wound Culture - Preliminary, Resulted Mixed Bacterial Ryann Proteus species Probable Pseudomonas Culture In Progress 02/02/22 Blood Culture - Final, Complete Strep agalactiae Group B Home Meds Active Reported Tylenol Extra Strength (Acetaminophen) 500 Mg Tablet 1,000 Mg PO Q8H PRN Metformin HCl 500 Mg Tablet 500 Mg PO BID WITH MEALS LAST FILLED 12-07-2021 #60/30 DAY SUPPLY Xalatan (Latanoprost) 0.005 % Drops 1 Drop OU HS Timolol Maleate 0.5% (Timolol Maleate) 0.5 % Drops 1 Drop OU DAILY Assessment/Pt Instructions Transferred to IRU Discharge Planning: >30 minutes discharge planning Discharge Instructions Discharge Diet: No Restrictions Activity as Tolerated: Yes Consultations Surgery Discharge Physical Examination Vital Signs Vital Signs Date Time Temp Pulse Resp B/P (MAP) Pulse Ox O2 Delivery O2 Flow Rate FiO2 02/05/22 12:25 93 02/05/22 11:49 37.1 18 128/73 (91) 96 Room Air 02/02/22 18:20 10.00 General Appearance: No Apparent Distress, WD/WN Respiratory: Lungs Clear, No Respiratory Distress Cardiovascular: Regular Rate, Rhythm, No Murmur Gastrointestinal: Normal Bowel Sounds, Soft Extremity: Normal Inspection, No Pedal Edema Skin: Normal Color, Warm/Dry Neurologic/Psychiatric: Alert, Oriented x3, Normal Mood/Affect Allergies: Coded Allergies: No Known Drug Allergies (Unverified , 02/02/22) Discharge Summary Date of Admission Feb 02, 2022 at 14:14 Date of Discharge Feb 05, 2022 at 13:07 Discharge Date: Feb 05, 2022 Discharge Time: 13:07 Admission Diagnosis Sepsis Consults/Procedures Consulations Surgery Procedures BKA Discharge Diagnosis (1) Sepsis Status: Acute Qualifiers: Qualified Codes: A41.9 - Sepsis, unspecified organism (2) Osteomyelitis Status: Acute Qualifiers: (3) Necrotizing fasciitis Status: Acute (4) Below-knee amputation of right lower extremity Status: Acute (5) Insulin dependent diabetes mellitus Status: Acute FRIDA LUNA MD Feb 05, 2022 17:59
--- NOTE | 2022-02-08 13:47 | OPERATIVE REPORT ---
DATE OF SERVICE: 02/02/2022 PREOPERATIVE DIAGNOSES: 1. Gangrene necrotizing fasciitis. 2. Osteomyelitis. POSTOPERATIVE DIAGNOSES: 1. Gangrene necrotizing fasciitis. 2. Osteomyelitis. PROCEDURE: Right bfgzf-dvg-whup amputation. SURGEON: Ayden Clinton DO PM HEAD COOK: Dr. Leary. ANESTHESIA: LMA. SPECIMEN: Right lower extremity. BLOOD LOSS: Less than 30 mL. FLUIDS: Per anesthesia. INDICATION FOR PROCEDURE: The patient is a 56-year-old male who did not take care of his right lower extremity and found to have gangrene, possible necrotizing fasciitis and possible osteomyelitis. PROCEDURE NOTE: After informed consent was obtained, right leg had been marked. The patient was brought to the operating room. He was placed on the table in supine position, sterilely prepped and draped in normal fashion. A tourniquet was placed on the right upper thigh; it was turned on. We then started the procedure, make an incision with a #10 blade about 15 cm below the patella, try to stay up on the skin that was good We did go a little bit lower on the back side, made a curvilinear incision, came across the top of the leg and then curved back down to about fci and then out and went down a little bit further, so that we could create a flap, started with a #10 blade, continue with the Bovie electrocautery, going down through the skin, fat and muscle down to the bone, getting under the tibia and then using an elevator to take the muscle off of the tibia as well as Bovie electrocautery to push this up, then chose a spot that was about 10 cm below the patella and used the bone saw to come across the tibia. Once this was off, we continued to come across vasculature. Any vasculature we saw, we clamped with a hemostat, then went on to the fibula, went up just a little bit 1 or 2 cm higher than the tibia, came across with a bone saw and then continued down, left the gastrocnemius muscle and possibly part of the soleus to protect the tibia. Once we were completely across the lower portion of muscle and skin, the posterior portion of muscle and skin was a little bit longer than the front. We tied off all the vessels with 0 Vicryl ties, let down the tourniquet, controlled the minimal bleeding with Bovie electrocautery as well as a couple other ties. There was no bleeding at the end and then elected to close this. We closed this with approximately 10 vertical mattress 0 Prolene and then closed the skin with galdino. Area was cleaned and dried. A dressing placed. The patient tolerated the procedure. He was transferred to recovery room in stable condition. Dr. Leary assisted in this case helping to make incisions, close incisions, identify anatomy, hold anatomy out of the way. The patient was transferred to recovery room in stable condition. Job ID: [id number] DocumentID: [id number] Dictated Date: 02/08/2022 09:14:22 Auto Service Instructor Date: 02/08/2022 13:46:28 Dictated By: DO RAKAN FIELDS
== END 2022-02-05 13:07 | DRG 853 ==
LOC: ER FS 10:53 → 4TH 14:14
PROVIDERS: ADMIT Family Medicine; ATTEND Family Medicine
PROC: 0Y6H0Z2 Detachment at Right Lower Leg, Mid, Open Approach (ICD-10-PCS; principal; 2022-02-02 16:08)
DX: A41.9 Sepsis, unspecified organism (principal); M72.6 Necrotizing fasciitis; A48.0 Gas gangrene; E11.52 Type 2 diabetes mellitus with diabetic peripheral angiopathy with gangrene; M86.9 Osteomyelitis, unspecified; E11.69 Type 2 diabetes mellitus with other specified complication; E11.65 Type 2 diabetes mellitus with hyperglycemia; I10 Essential (primary) hypertension; Z79.84 Long term (current) use of oral hypoglycemic drugs
CPT/HCPCS: 36415; 73620; 73700; 80048; 80053; 82947; 83036; 83605; 85007; 85027; 87040; 87070; 87077; 87186; 87205; 96372; 96374; 96375

== ENCOUNTER 2022-02-05 11:54 | Inpatient (IN) | payer BC ==
[~2022-02-05] VITALS: Ht 167 cm; Wt 85.2 kg
[~2022-02-05 11:54] MED LIST: ACET-2267 PO; ACETAMINOPHEN 325 MG TABLET PO PRN; ALPRAZolam 0.25 MG (XANAX) TAB PO PRN; BISACODYL 10 MG SUPP (DULCOLAX) PR PRN; CALCIUM CARBONATE 500 MG (TUMS) TAB.CHEW PO PRN; DOCUSATE SODIUM 100 MG (COLACE) CAP PO PRN; FLEET ENEMA ADULT 1 EA BTL PR PRN; LACTULOSE SYRUP 10GM/15ML (ENULOSE) 30ML UDC PO PRN; LATA2.5D19 OU; LOPERAMIDE 2 MG (IMODIUM) TABLET PO PRN; MELATONIN 3 MG TABLET PO PRN; METF-397 PO; ONDANSETRON 4 MG (ZOFRAN) ORAL DISSOLVE TAB PO PRN; TIMO5DRO5 OU; diphenhydrAMINE 25 MG TAB (BENADRYL) PO PRN; guaiFENesin/CODEINE (ROBITUSSIN AC) 10ML UDC PO PRN
--- NOTE | 2022-02-05 13:08 | PM&R Post Admission Assessment ---
PM&R HP Date of Visit: Feb 05, 2022 Time of Visit: 14:00 History of Present Illness CC: Right BKA HPI: This is a 56yoWM who presents to the ARU in need of recovery following righ t BKA. He works at [employer] in [employer] for 25 years. His HGA1c is 12.5 and insulin in maintained and will monitor trend. He reports pain is an issue so ivis continue to monitor that and provide pain meds. PLOF was independent without use of AD. He will need aggressive therapy in order to return back to independent living. Past Akcaena-Tfdjpe-Kzpgez Hx Past Med/Social Hx: Reviewed Nursing Past Med/Soc Hx, Reviewed and Corrections made Patient Social History Marrital Status: single Employed/Student: employed Alcohol Use: Denies Use Smoking Status: Never a Smoker Seasonal Allergies Seasonal Allergies: No Past Medical History Surgeries: Orthopedic Cardiac: Hypertension Endocrine: Diabetes, Non-Insulin dep HEENT: Cataract Hearing Impairment: Denies Family History Cancer, Hypertension PM&R Allergy/Meds/Data Review Allergies Coded Allergies: No Known Drug Allergies (Unverified , 02/02/22) Home Medications Scheduled Latanoprost (Xalatan), 1 DROP OU HS, (Reported) Metformin HCl (Metformin HCl), 500 MG PO BID WITH MEALS, (Reported) Timolol Maleate (Timolol Maleate 0.5%), 1 DROP OU DAILY, (Reported) Scheduled PRN Acetaminophen (Tylenol Extra Strength), 1,000 MG PO Q8H PRN for PAIN-MILD (1-4), (Reported) Current Medications Current Medications Reviewed Review of Systems Constitutional: see HPI, malaise, weakness EENTM: no symptoms reported Respiratory: no symptoms reported Cardiovascular: no symptoms reported Gastrointestinal: no symptoms reported Genitourinary: no symptoms reported Musculoskeletal: joint pain Skin: no symptoms reported Psychiatric/Neurological: No Symptoms Reported All Other Systems Reviewed Negative Unless Noted: Yes Physical Exam Physical Exam Vital Signs Capillary Refill : Height, Weight, BMI Height: '" Weight: lbs. oz. kg; 27.41 BMI Method: General Appearance: No Apparent Distress, WD/WN Eyes: Bilateral Eye Normal Inspection, Bilateral Eye PERRL HEENT: PERRL/EOMI, Normal ENT Inspection, Pharynx Normal Neck: Full Range of Motion, Normal Inspection, Non Tender, Supple, Carotid Bruit Respiratory: Chest Non Tender, Lungs Clear, Normal Breath Sounds, No Accessory Muscle Use, No Respiratory Distress Cardiovascular: Regular Rate, Rhythm, No Edema, No Gallop, No JVD, No Murmur, Normal Peripheral Pulses Gastrointestinal: Normal Bowel Sounds, No Organomegaly, No Pulsatile Mass, Non Tender, Soft Back: Normal Inspection, No CVA Tenderness, No Vertebral Tenderness Extremity: Normal Capillary Refill, Normal Inspection, Normal Range of Motion (right amputaiton BK), Non Tender, No Calf Tenderness, No Pedal Edema Neurologic/Psychiatric: Alert, Oriented x3, No Motor/Sensory Deficits, Normal Mood/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, 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, Motor Weakness (right leg BKA) Skin: Normal Color, Warm/Dry Lymphatic: No Adenopathy PM&R Medical Assessment & Plan REHAB/MEDICAL ASSESSMENT AND PLAN: REHAB IMPAIRMENT GROUP: BKA ETIOLOGIC DIAGNOSIS: BKA The comorbidities that impact the patients function and/or functional outcome by: 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 The patient has potential to make improvement and is in need of at least two of the following multidisciplinary therapies including but not limited to physical, occupational, speech, and prosthetics and orthotics. Additionally the patient will need services from respiratory, nutritional services, wound care, psychology, etc. (Customize this to each patient). Given the patients complex condition and risk of further medical complications, rehabilitation services cannot be safely or effectively provided at a lower level of care such as a [facility] facility. BARRIERS TO DISCHARGE: BKA ESTIMATED LOS: 10 days DISPOSITION: Home RELEVANT CHANGES SINCE PREADMISSION SCREENING: I have compared the patients medical and functional status at the time of the preadmission screening and there are: no changes PROGNOSIS: Good REHABILITATION GOALS: 1. PT OT will focus on regaining function with the use of assistive devices in order to regain function to live independently with BKA All the above goals were reviewed with the patient and he/she is in agreement. By signing this document, I acknowledge that I have personally performed a full physical examination on this patient within 24 hours of admission to this inpatient rehabilitation facility and have determined the patient to be able to tolerate the above course of treatment at an intensive level for a reasonable period of time. I will be completing a detailed individualized Plan of Care for this patient by day #4 of the patients stay based upon the Preadmission Screen, the Post-Admission Evaluation, and the therapy evaluations. 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
[2022-02-05 13:11] VITALS: BP 163/74
--- NOTE | 2022-02-05 13:23 | Physical Therapy Evaluation ---
PT Evaluation-General Medical Diagnosis Admission Date 02/05/22 Medical Diagnosis: Right BKA Onset Date: Feb 02, 2022 Therapy Diagnosis Therapy Diagnosis: Gait deficit, strength deficit Precautions Precautions/Isolations: Fall Prevention Weight Bear Status Right Lower Extremity: Right Non Weight Bearing Left Lower Extremity: Left Full Weight Bearing Referral Physician: Dr. Frances Reason for Referral: Evaluation/Treatment Medical History Pertinent Medical History: DM, HTN Reviewed History: Yes Social History Home: Single Level Current Living Status: Other Family (Mother) Entry Into Home: Stairs With Railing PT Steps Into Home: 7 Prior Prior Level of Function SCALE: Activities may be completed with or without assistive devices. 1-Kneuslcwmp-slecfxf completes the activity by him/herself with no assistance from a helper. 5-Set-up or Clean-up Assistance-helper sets up or cleans up; patient completes activity. [place] assists only prior to or following the activity. 4-Supervision or Touching Assistance-helper provides verbal cues and/or touching/steadying and/or contact guard assistance as patient completes activity. Assistance may be provided throughout the activity or intermittently. 3-Partial/Moderate Assistance-helper does LESS THAN HALF the effort. [place] lifts, holds or supports trunk or limbs, but provides less than half the effort. 2-Substantial/Maximal Assistance-helper does MORE THAN HALF the effort. [place] lifts or holds trunk or limbs and provides more than half the effort. 8-Kqdqiubao-saijao does ALL the effort. Patient does none of the effort to complete the activity. Or, the assistance of 2 or more helpers is required for the patient to complete the activity. If activity was not attempted, code reason: 7-Patient Refused. 9-Not Applicable-not attempted and the patient did not perform the activity before the current illness, exacerbation or injury. 10-Not Attempted due to Environmental Limitations-(lack of equipment, weather restraints, etc.). 88-Not Attempted due to Medical Conditions or Safety Concerns. Bed Mobility: 6 Transfers (B,C,W/C): 6 Gait: 6 Stairs: 6 Indoor Mobility (Ambulation): Independent Stairs: Independent PT Evaluation-Current Objective Patient Orientation: Person, Place, Time, Situation Attachments: IV ROM/Strength ROM Lower Extremities Right knee and hip AROM self-limited due to pain. Left LE WFLs all planes Strength Lower Extremities Left LE 4-/5 all planes. Right hip 3/5 all planes via visual observation: right knee N/A Sensory Vision: Functional Hearing: Hearing Aid/Aides Sensation Right Lower Extremit: Intact Sensation Left Lower Extremity: Intact Transfers Roll Left & Right (QC): 3 Sit to Lying (QC): 3 Lying to Sitting/Side of Bed(Q: 3 Sit to Stand (QC): 3 Chair/Fho-vw-Cghla Xfer(QC): 3 Toilet Transfer (QC): 3 Car Transfer (QC): 3 Gait Does the Patient Walk?: Yes Mode of Locomotion: Walk Anticipated Mode of Locomotion: Both Walk 10 feet (QC): 3 Walk 50 ft with 2 Turns(QC): 3 Walk 150 ft (QC): 88 Walking 10ft/uneven surface-QC: 3 Distance: 80, 50 Gait Assistive Device: FWW Wheelchair Training Does the Pt Use a Wheelchair?: Yes Distance: 150 Wheel 50 ft with 2 turns (QC): 4 Wheel 150 ft (QC): 4 Type of Wheelchair: Manual Stairs #of Steps: 0 1 Step (curb) (QC): 88 4 Steps (QC): 88 12 Steps (QC): 88 Patient reports he is too fatigued and his right LE is hurting and doesn't want to do steps at this time. Balance Sitting Static: Normal Sitting Dynamic: Normal Standing Static: Fair Standing Dynamic: Poor Picking up an Object (QC): 88 Assessment/Needs Patient tolerated treatment fair. He performs all observed bed mobility and transfers with min A. He reports his right residual limb is hurting more today and that seems to be limiting his overall mobility. Patient ambulates 50 feet with FWW, with CGA and verbal cues for safety, progression, posture and balance. Patient propels w/c 150 feet with SBA and verbal cues for performance initially. Patient performs functional transfers then ambulates 80 feet to his room. Patient politely refuses steps due to pain in the right residual limb and fatigue. Patient in bed post treatment with all needs met, nursing notified, call light in reach. 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 Time Frame: Feb 26, 2022 Roll Left & Right (QC): 6 Sit to Lying (QC): 6 Lying-Sitting on Side/Bed(QC): 6 Sit to Stand (QC): 6 Chair/Qzm-dq-Bzwhj Xfer(QC): 6 Toilet Transfer (QC): 6 Car Transfer (QC): 6 Does the Patient Walk: Yes Walk 10 feet (QC): 6 Walk 50ft with 2 Turns (QC): 5 Walk 150 ft (QC): 6 Walking 10ft on Uneven Surface: 6 1 Step (curb) (QC): 4 4 Steps (QC): 4 12 Steps (QC): 3 Picking up an Object (QC): 6 Does the Pt use WC or Scooter?: Yes Wheel 50 feet with 2 turns (QC: 6 Type: Manual Wheel 150 feet: 6 Type: Manual PT Plan Problem List Problem List: Activity Tolerance, Functional Strength, Safety, Balance, Gait, Transfer, Bed Mobility Treatment/Plan Treatment Plan: Continue Plan of Care Treatment Plan: Bed Mobility, Education, Functional Activity Alyssa, Functional Strength, Group Therapy, Gait, Safety, Therapeutic Exercise, Transfers Treatment Duration: Mar 05, 2022 Frequency: At least 5 of 7 days/Wk (IRF) Estimated Hrs Per Day: 1.5 hours per day Patient and/or Family Agrees t: Yes Safety Risks/Education Patient Education: Gait Training, Transfer Techniques Teaching Recipient: Patient Teaching Methods: Demonstration, Discussion Response to Teaching: Verbalize Understanding, Return Demonstration Time/GCodes Time In: 1251 Time Out: 1315 Total Billed Treatment Time: 24 Total Billed Treatment Visit, Mallika VELASQUEZ JOHN A PT Feb 05, 2022 13:23
[2022-02-05] MEDS ORDERED: MELATONIN 3 MG TABLET PO PRN (16:00)
[2022-02-05] MEDS ORDERED: polyethylene glycoL POWDER 17 GM (MIRALAX) PACK PO PRN (16:00)
[2022-02-05] MEDS ORDERED: ACETAMINOPHEN 325 MG TABLET PO PRN (16:00)
[2022-02-05] MEDS ORDERED: ONDANSETRON 4 MG/2 ML (SDV) Z0FRAN IV PRN (16:00)
[2022-02-05] MEDS ORDERED: morphine INJ 4 MG/ML 1 ML (VIAL/SYRINGE) IVP PRN (16:00)
[2022-02-05] MEDS ORDERED: PIPERACILLIN SODIUM/TAZOBACTAM 4.5 GM in NS (IVPB) 100 ML IV SCH (16:00)
[2022-02-05] MEDS: inSUlin ASPART (NovoLOG) 1 UNIT/0.01 ML (CHARGE PER UNIT) SC SCH ×2 (17:34→21:14)
[2022-02-05] MEDS: PIPERACILLIN SODIUM/TAZOBACTAM 4.5 GM in NS (IVPB) 100 ML IV SCH (19:25)
[2022-02-05 20:17] VITALS: BP 140/79
[2022-02-05] MEDS: SENNA W/DOCUSATE (SENOKOT S) TABLET PO SCH (21:14)
[2022-02-05] MEDS: DOCUSATE SODIUM 100 MG (COLACE) CAP PO SCH (21:14)
[2022-02-05] MEDS: polyethylene glycoL POWDER 17 GM (MIRALAX) PACK PO SCH (21:15)
[2022-02-06] MEDS: PIPERACILLIN SODIUM/TAZOBACTAM 4.5 GM in NS (IVPB) 100 ML IV SCH ×3 (03:17→18:17)
[2022-02-06 05:15] LABS: BASOPHILS % (AUTO) 1 % (0-10); EOSINOPHILS # (AUTO) 0.2 10^3/uL (0.0-0.3); EOSINOPHILS % (AUTO) 4 % (0-10); HEMATOCRIT 28 % (40-54); HEMOGLOBIN 9.1 g/dL (13.3-17.7); LYMPHOCYTES # (AUTO) 1.3 10^3/uL (1.0-4.0); LYMPHOCYTES % (AUTO) 20 % (12-44); MEAN CORPUSCULAR HEMOGLOBIN 30 pg (25-34); MEAN CORPUSCULAR HGB CONC 32 g/dL (32-36); MEAN CORPUSCULAR VOLUME 92 fL (80-99); MEAN PLATELET VOLUME 9.2 fL (9.0-12.2); MONOCYTES # (AUTO) 0.5 10^3/uL (0.0-1.0); MONOCYTES % (AUTO) 8 % (0-12); NEUTROPHILS # (AUTO) 4.4 10^3/uL (1.8-7.8); NEUTROPHILS % (AUTO) 67 % (42-75); PLATELET COUNT 373 10^3/uL (130-400); WHITE BLOOD COUNT 6.6 10^3/uL (4.3-11.0)
[2022-02-06 05:29] LABS: ALBUMIN 1.9 GM/DL (3.2-4.5); POTASSIUM 4.2 MMOL/L (3.6-5.0)
[2022-02-06 05:30] LABS: CALCIUM 7.5 MG/DL (8.5-10.1)
[2022-02-06 05:33] LABS: BILIRUBIN,TOTAL 0.3 MG/DL (0.1-1.0)
[2022-02-06 05:35] LABS: CREATININE SERUM 0.79 MG/DL (0.60-1.30)
[2022-02-06] MEDS: inSUlin ASPART (NovoLOG) 1 UNIT/0.01 ML (CHARGE PER UNIT) SC SCH ×4 (06:46→21:09)
[2022-02-06 07:26] VITALS: BP 162/76
--- NOTE | 2022-02-06 07:37 | PM&R Progress Note ---
Subjective HPI/CC On Admission Date Seen by Provider: Feb 06, 2022 Time Seen by Provider: 12:00 Subjective/Events-last exam 02/06/2022: Patient tolerating pain well Reviewed meds Reviewed glucose Adjusting insulin Review of Systems General: Fatigue, Malaise Musculoskeletal: leg pain Objective Exam Vital Signs Vital Signs Date Time Temp Pulse Resp B/P (MAP) Pulse Ox O2 Delivery O2 Flow Rate FiO2 02/06/22 09:49 96 Room Air 02/06/22 07:26 36.7 82 18 162/76 (104) Capillary Refill : General Appearance: No Apparent Distress, WD/WN HEENT: PERRL/EOMI, Normal ENT Inspection, Pharynx Normal Neck: Full Range of Motion, Normal Inspection, Non Tender, Supple, Carotid Bruit Respiratory: Chest Non Tender, Lungs Clear, Normal Breath Sounds, No Accessory Muscle Use, No Respiratory Distress Cardiovascular: Regular Rate, Rhythm, No Edema, No Gallop, No JVD, No Murmur, Normal Peripheral Pulses Gastrointestinal: Normal Bowel Sounds, No Organomegaly, No Pulsatile Mass, Non Tender, Soft Back: Normal Inspection, No CVA Tenderness, No Vertebral Tenderness Extremity: Normal Capillary Refill, Normal Inspection, Normal Range of Motion (right amputaiton BK), Non Tender, No Calf Tenderness, No Pedal Edema Neurologic/Psychiatric: Alert, Oriented x3, No Motor/Sensory Deficits, Normal 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 FIM Transfers Therapy Code Descriptions/Definitions Functional [place] Measure: 0=Not Assessed/NA 4=Minimal Assistance 1=Total Assistance 5=Supervision or Setup 2=Maximal Assistance 6=Modified [place] 3=Moderate Assistance 7=Complete IndependenceSCALE: Activities may be completed with or without assistive devices. 2-Uflvrdnrat-cngwxsp completes the activity by him/herself with no assistance from a helper. 5-Set-up or Clean-up Assistance-helper sets up or cleans up; patient completes activity. [place] assists only prior to or following the activity. 4-Supervision or Touching Assistance-helper provides verbal cues and/or touching/steadying and/or contact guard assistance as patient completes activity. Assistance may be provided throughout the activity or intermittently. 3-Partial/Moderate Assistance-helper does LESS THAN HALF the effort. [place] lifts, holds or supports trunk or limbs, but provides less than half the effort. 2-Substantial/Maximal Assistance-helper does MORE THAN HALF the effort. [place] lifts or holds trunk or limbs and provides more than half the effort. 7-Scgewwqvv-vhxbhk does ALL the effort. Patient does none of the effort to co mplete the activity. Or, the assistance of 2 or more helpers is required for the patient to complete the activity. If activity was not attempted, code reason: 7-Patient Refused. 9-Not Applicable-not attempted and the patient did not perform the activity before the current illness, exacerbation or injury. 10-Not Attempted due to Environmental Limitations-(lack of equipment, weather restraints, etc.). 88-Not Attempted due to Medical Conditions or Safety Concerns. Roll Left to Right (QC): 3 Sit to Lying (QC): 3 Sit to Stand (QC): 3 Chair/Ygz-mu-Zfetj Xfer(QC): 3 Car Transfer (QC): 3 Gait Training Does the Patient Walk?: Yes Walk 10 feet (QC): 3 Walk 50 ft with 2 Turns(QC): 3 Walk 150 ft (QC): 88 Walking 10ft/uneven surface-QC: 3 Gait Assistive Device: FWW Wheelchair Training Does the Pt Use a Wheelchair?: Yes Distance: 150 Wheel 50 ft with 2 turns (QC): 4 Wheel 150 ft (QC): 4 Type of Wheelchair: Manual Stair Training #of Steps: 0 1 Step (curb) (QC): 88 4 Steps (QC): 88 12 Steps (QC): 88 Balance Picking up an Object (QC): 88 Assessment/Plan Assessment and Plan Assess & Plan/Chief Complaint Assessment: 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
--- NOTE | 2022-02-06 07:56 | Progress Note - Surgery ---
LINDAYAHAIRA Huang 02/06/22 0756: Subjective Date Seen by a Provider: Feb 06, 2022 Time Seen by a Provider: 07:51 Subjective/Events-last exam Pt is sitting in bed eating. Pt's pain continues to improve. Pt has been ambulating with assistance with no issues. Pt has no other complaints at this time. Denies n/v, CP, SOB, and sweats. Review of Systems General: No Chills, No Night Sweats HEENT: No Head Aches, No Visual Changes Pulmonary: No Dyspnea, No Cough Cardiovascular: No: Chest Pain, Palpitations Gastrointestinal: No: Nausea, Vomiting Genitourinary: No Dysuria, No Frequency Musculoskeletal: No: neck pain, shoulder pain Neurological: No: Weakness, Numbness Objective Exam Vital Signs Date Time Temp Pulse Resp B/P (MAP) Pulse Ox O2 Delivery O2 Flow Rate FiO2 02/06/22 07:26 36.7 82 18 162/76 (104) 96 Room Air 02/05/22 21:15 96 Room Air 02/05/22 20:17 36.8 84 20 140/79 (99) 96 Room Air 02/05/22 18:12 Room Air 02/05/22 13:11 37.1 96 18 163/74 (103) 97 Room Air Capillary Refill : General Appearance: No Apparent Distress, WD/WN HEENT: PERRL/EOMI, Normal ENT Inspection Neck: Normal Inspection, Supple Respiratory: No Accessory Muscle Use, No Respiratory Distress Cardiovascular: No Edema, Normal Peripheral Pulses Extremity: Non Tender, No Pedal Edema, Other (right BKA) Neurologic/Psychiatric: Alert, Normal Mood/Affect, Motor Weakness (right leg BKA) Skin: Normal Color, Warm/Dry Lymphatic: No Adenopathy Results Lab Laboratory Tests 02/05/22 15:46: Glucometer 280H 02/05/22 20:17: Glucometer 247H 02/06/22 05:01: White Blood Count 6.6, Red Blood Count 3.06L, Hemoglobin 9.1L, Hematocrit 28L, Mean Corpuscular Volume 92, Mean Corpuscular Hemoglobin 30, Mean Corpuscular Hemoglobin Concent 32, Red Cell Distribution Width 12.9, Platelet Count 373, Mean Platelet Volume 9.2, Immature Granulocyte % (Auto) 1, Neutrophils (%) (Auto) 67, Lymphocytes (%) (Auto) 20, Monocytes (%) (Auto) 8, Eosinophils (%) (Auto) 4, Basophils (%) (Auto) 1, Neutrophils # (Auto) 4.4, Lymphocytes # (Auto) 1.3, Monocytes # (Auto) 0.5, Eosinophils # (Auto) 0.2, Basophils # (Auto) 0.0, Immature Granulocyte # (Auto) 0.1, Sodium Level 135, Potassium Level 4.2, Chloride Level 108H, Carbon Dioxide Level 20L, Anion Gap 7, Blood Urea Nitrogen 11, Creatinine 0.79, Estimat Glomerular Filtration Rate 106, BUN/Creatinine Ratio 14, Glucose Level 206H, Calcium Level 7.5L, Corrected Calcium 9.2, Total Bilirubin 0.3, Aspartate Amino Transf (AST/SGOT) 18, Alanine Aminotransferase (ALT/SGPT) 11, Alkaline Phosphatase 196H, Total Protein 6.0L, Albumin 1.9L 02/06/22 05:40: Glucometer 189H Assessment/Plan Assessment/Plan Assessment/Plan 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 Pain controlled. Denies n/v fever sweats chills shortness of breath or chest pain. 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 I reviewed and verified all information documented by the medical student and made modifications to such information, when appropriate. I personally performed the physical exam and medical decision making. Jose Leary, Feb 06, 2022,11:30 YAHAIRA GONZALEZ Feb 06, 2022 07:56 JOSE LEARY DO Feb 06, 2022 11:30
[2022-02-06] MEDS: polyethylene glycoL POWDER 17 GM (MIRALAX) PACK PO SCH ×2 (09:31→21:10)
[2022-02-06] MEDS: SENNA W/DOCUSATE (SENOKOT S) TABLET PO SCH ×2 (09:31→21:10)
[2022-02-06] MEDS: DOCUSATE SODIUM 100 MG (COLACE) CAP PO SCH ×2 (09:31→21:10)
[2022-02-06] MEDS: ENOXAPARIN 40 MG/0.4 ML (LOVENOX) SYR SQ SCH (12:09)
[2022-02-06 20:34] VITALS: BP 146/76
[2022-02-07] MEDS: PIPERACILLIN SODIUM/TAZOBACTAM 4.5 GM in NS (IVPB) 100 ML IV SCH ×2 (03:27→14:29)
--- NOTE | 2022-02-07 05:49 | PM&R Progress Note ---
Subjective HPI/CC On Admission Date Seen by Provider: Feb 07, 2022 Time Seen by Provider: 09:30 Subjective/Events-last exam 02/07/2022: Doing well Reviewed sugars Talked to him about transitioning to PO for DM management since he was only on Metformin in past Eye drops needs to be restarted after nurse calls pharmacy for exact type and dosing 02/06/2022: Patient tolerating pain well Reviewed meds Reviewed glucose Adjusting insulin Review of Systems General: Fatigue, Malaise Objective Exam Vital Signs Vital Signs Date Time Temp Pulse Resp B/P (MAP) Pulse Ox O2 Delivery O2 Flow Rate FiO2 02/07/22 20:10 Room Air 02/07/22 19:45 36.9 88 16 135/70 (91) 97 Capillary Refill : General Appearance: No Apparent Distress, WD/WN HEENT: PERRL/EOMI, Normal ENT Inspection, Pharynx Normal Neck: Full Range of Motion, Normal Inspection, Non Tender, Supple, Carotid Bruit Respiratory: Chest Non Tender, Lungs Clear, Normal Breath Sounds, No Accessory Muscle Use, No Respiratory Distress Cardiovascular: Regular Rate, Rhythm, No Edema, No Gallop, No JVD, No Murmur, Normal Peripheral Pulses Gastrointestinal: Normal Bowel Sounds, No Organomegaly, No Pulsatile Mass, Non Tender, Soft Back: Normal Inspection, No CVA Tenderness, No Vertebral Tenderness Extremity: Normal Capillary Refill, Normal Inspection, Normal Range of Motion (right amputaiton BK), Non Tender, No Calf Tenderness, No Pedal Edema Neurologic/Psychiatric: Alert, Oriented x3, No Motor/Sensory Deficits, Normal Mood/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 FIM Transfers Therapy Code Descriptions/Definitions Functional [place] Measure: 0=Not Assessed/NA 4=Minimal Assistance 1=Total Assistance 5=Supervision or Setup 2=Maximal Assistance 6=Modified [place] 3=Moderate Assistance 7=Complete IndependenceSCALE: Activities may be completed with or without assistive devices. 2-Mfowxwzvic-pbqnnug completes the activity by him/herself with no assistance from a helper. 5-Set-up or Clean-up Assistance-helper sets up or cleans up; patient completes activity. [place] assists only prior to or following the activity. 4-Supervision or Touching Assistance-helper provides verbal cues and/or touching/steadying and/or contact guard assistance as patient completes activity. Assistance may be provided throughout the activity or intermittently. 3-Partial/Moderate Assistance-helper does LESS THAN HALF the effort. [place] lifts, holds or supports trunk or limbs, but provides less than half the effort. 2-Substantial/Maximal Assistance-helper does MORE THAN HALF the effort. [place] lifts or holds trunk or limbs and provides more than half the effort. 6-Pnbsbjrhx-retkbe does ALL the effort. Patient does none of the effort to complete the activity. Or, the assistance of 2 or more helpers is required for the patient to complete the activity. If activity was not attempted, code reason: 7-Patient Refused. 9-Not Applicable-not attempted and the patient did not perform the activity before the current illness, exacerbation or injury. 10-Not Attempted due to Environmental Limitations-(lack of equipment, weather restraints, etc.). 88-Not Attempted due to Medical Conditions or Safety Concerns. Roll Left to Right (QC): 3 Sit to Lying (QC): 3 Sit to Stand (QC): 3 Chair/Fyg-oo-Aizxq Xfer(QC): 3 Car Transfer (QC): 3 Gait Training Does the Patient Walk?: Yes Walk 10 feet (QC): 3 Walk 50 ft with 2 Turns(QC): 3 Walk 150 ft (QC): 88 Walking 10ft/uneven surface-QC: 3 Gait Assistive Device: FWW Wheelchair Training Does the Pt Use a Wheelchair?: Yes Distance: 150 Wheel 50 ft with 2 turns (QC): 4 Wheel 150 ft (QC): 4 Type of Wheelchair: Manual Stair Training #of Steps: 0 1 Step (curb) (QC): 88 4 Steps (QC): 88 12 Steps (QC): 88 Balance Picking up an Object (QC): 88 Assessment/Plan Assessment and Plan Assess & Plan/Chief Complaint Assessment: 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
[2022-02-07] MEDS: inSUlin ASPART (NovoLOG) 1 UNIT/0.01 ML (CHARGE PER UNIT) SC SCH ×4 (06:35→20:19)
--- NOTE | 2022-02-07 07:28 | Progress Note - Surgery ---
GODWIN ALLISON 02/07/22 0728: Subjective Date Seen by a Provider: Feb 07, 2022 Time Seen by a Provider: 07:23 Subjective/Events-last exam Patient eating breakfast comfortably in bed. States his pain is well controlled. Admits to occassional cough, but denies fever, chills, N/V, chest pain, SOB, or any other medical complaints. Reports he did some PT on Monday, but has his first major day today. Review of Systems General: No Chills, No Night Sweats HEENT: No Head Aches, No Visual Changes Pulmonary: No Dyspnea; Cough (occassional ) Cardiovascular: No: Chest Pain Gastrointestinal: No: Nausea, Vomiting, Abdominal Pain, Diarrhea, Constipation Genitourinary: No Retention Musculoskeletal: other (right BKA) Objective Exam Vital Signs Date Time Temp Pulse Resp B/P (MAP) Pulse Ox O2 Delivery O2 Flow Rate FiO2 02/06/22 21:15 97 Room Air 02/06/22 20:34 37.0 84 18 146/76 (99) 97 Room Air 02/06/22 09:49 96 Room Air 02/06/22 07:26 36.7 82 18 162/76 (104) 96 Room Air Capillary Refill : General Appearance: No Apparent Distress, WD/WN HEENT: PERRL/EOMI, Pharynx Normal Neck: Non Tender, Supple Respiratory: Lungs Clear, Normal Breath Sounds, No Accessory Muscle Use, No Respiratory Distress Cardiovascular: Regular Rate, Rhythm, No Gallop, No Murmur Peripheral Pulses: 2+ Radial Pulses (R), 2+ Radial Pulses (L) Gastrointestinal: normal bowel sounds, non tender, soft Extremity: Non Tender, No Calf Tenderness, No Pedal Edema, Other (Right BKA, dressing in place. No surrounding erythema. 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 His pain is controlled. Little bit sore from PT but otherwise doing well. Has no complaints at this time. Denies nausea vomiting fever sweats chills shortness of breath or chest pain. Occasional slight cough. Objective Exam General Appearance: No Apparent Distress, WD/WN HEENT: PERRL/EOMI, Normal ENT Inspection Neck: Non Tender, Supple Respiratory: Chest Non Tender, No Accessory Muscle Use, No Respiratory Distress Cardiovascular: Regular Rate, Rhythm, No JVD Gastrointestinal: non tender, soft Extremity: Non Tender, No Calf Tenderness, Other (Right BKA, incision clean dry intact no surrounding erythema. 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 I reviewed and verified all information documented by the medical student and made modifications to such information, when appropriate. I personally performed the physical exam and medical decision making. Jose Leary, Feb 07, 2022,20:30 GODWIN ALLISON Feb 07, 2022 07:28 JOSE LEARY DO Feb 07, 2022 20:30
[2022-02-07 07:44] VITALS: BP 165/77
--- NOTE | 2022-02-07 09:45 | Occupational Therapy Eval ---
OT Evaluation-General/PLF Medical Diagnosis Admission Date Feb 05, 2022 at 13:19 Medical Diagnosis: Right BKA Onset Date: Feb 02, 2022 Therapy Diagnosis Therapy Diagnosis: reduced adl status Precautions Precautions/Isolations: Fall Prevention, Standard Precautions Referral Physician: Dr. Frances Referral Reason: Evaluation/Treatment Medical History Pertinent Medical History: DM, HTN Current History s/p BKA Per patient, he lives alone in a trailer. He was indep with adls and iadls. 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 He recently started using a "broomstick" as a walking stick. Reviewed History: Yes Social History Home: Single Level Current Living Status: Alone Entry Into Home: Stairs With Railing Steps Into Home: 6 ADL-Prior Level of Function SCALE: Activities may be completed with or without assistive devices. 3-Rajgsnlgzu-vafarvs completes the activity by him/herself with no assistance from a helper. 5-Set-up or Clean-up Assistance-helper sets up or cleans up; patient completes activity. [place] assists only prior to or following the activity. 4-Supervision or Touching Assistance-helper provides verbal cues and/or touching/steadying and/or contact guard assistance as patient completes activity. Assistance may be provided throughout the activity or intermittently. 3-Partial/Moderate Assistance-helper does LESS THAN HALF the effort. [place] lifts, holds or supports trunk or limbs, but provides less than half the effort. 2-Substantial/Maximal Assistance-helper does MORE THAN HALF the effort. [place] lifts or holds trunk or limbs and provides more than half the effort. 7-Wuptezpcg-folcyo does ALL the effort. Patient does none of the effort to complete the activity. Or, the assistance of 2 or more helpers is required for the patient to complete the activity. If activity was not attempted, code reason: 7-Patient Refused. 9-Not Applicable-not attempted and the patient did not perform the activity before the current illness, exacerbation or injury. 10-Not Attempted due to Environmental Limitations-(lack of equipment, weather restraints, etc.). 88-Not Attempted due to Medical Conditions or Safety Concerns. Self Care: Independent Functional Cognition: Independent DME/Equipment: Tub/Shower Drive Self: Yes OT Current Status Subjective Pt denies pain, agreeable to evaluation. Co-treat with PT for part of treatment ([id number]) secondary to impaired mobility, high fall risk, poor safety and need of 2 skilled clinicians to progress indep and safety with adls and functional mobility. Appearance Pt left sitting in therapy gym with physical therapist present at OT departure. Mental Status/Objective Patient Orientation: Person, Place, Situation Attachments: IV Current Hearing Aids: No Dentures/Partials: No Hand Dominance: Right ADL-Treatment Eating (QC): 5 (per clinical judgment) Oral Hygiene (QC): 3 Shower/Bathe Self (QC): 3 Upper Body Dressing (QC): 5 Lower Body Dressing (QC): 3 On/Off Footwear (QC): 3 Toileting Hygiene (QC): 3 Pt reclined in bed at OT arrival. Supine>sit: SBA. All sit<>stand transfers performed with min a. Pt hopped to/from bathroom with min a and use of walker. Cues for alternating one hand on grab bar/walker as other managed clothing over hips pre/post toilet. Pt able to perform iva care in sitting with set up assist. RN requests to defer shower this date, agreeable to sponge bath. Bathing activity completed seated at sink. Pt able to wash upper body, iva area, and down to L ankle without assist. Anticipate at least min a needed for balance if performed at baseline (standing). Assist needed to reach/wash L foot. Cues for safety around incision when washing R stump. Clothing donned seated in w/c. Extra time to thread LLE into shorts but no physical assistance required. Min a for balance as he stood to pull shorts over hips, again cues for alternating one hand on walker during clothing management. Grooming tasks performed independently at w/c level. Pt likely needing balance assist if performed at in standing (baseline). Other Treatments Pt participated in standing therapeutic activities with focus on promoting increased balance, LLE strength, functional reach, and standing tolerance/endurance. Clothespins placed on posterior shorts/shirt to simulate reaching during clothing management. Heavy focus on performing task with R hand as pt requires increased balance assist when removing R hand vs Left. Min a needed throughout activity. Pt also stacked 1/2 inch blocks, again to focus on skills noted previously. Blocks placed slightly out of JEOVANNY to encourage dynamic balance. No LOB during task however pt does fatigue quickly and requests a sitting rest break. Education OT Patient Education: Correct positioning, Energy conservation, Modified ADL techniques, Progress toward Goal/Update tx plan, Purpose of tx/functional activities, Reviewed precautions, Rehab process, Safety issues, Transfer techniques, W/C management Teaching Recipient: Patient Teaching Methods: Demonstration, Discussion Response to Teaching: Verbalize Understanding, Return Demonstration, Reinforcement Needed OT Short Term Goals Short Term Goals Time Frame: Feb 14, 2022 Eatin Oral hygiene: 5 Toileting hygiene: 4 Shower/bathe self: 4 Upper body dressin Lower body dressin Putting on/taking off footwear: 4 OT Care Home Goals Care Home Goals Time Frame: Feb 21, 2022 Eating (QC): 6 Oral Hygiene (QC): 6 Toileting Hygiene (QC): 6 Shower/Bathe Self (QC): 5 Upper Body Dressing (QC): 6 Lower Body Dressing (QC): 5 On/Off Footwear (QC): 5 Additional Goals: 1-Demonstrate ADL Tasks, 2-Verbalize Understanding, 3- ImproveStrength/Alyssa 1=Demonstrate adherence to instructed precautions during ADL tasks. 2=Patient will verbalize/demonstrate understanding of assistive device s/modifications for ADL. 3=Patient will improve strength/tolerance for activity to enable patient to perform ADL's. OT Education/Plan Problem List/Assessment Assessment: Decreased Activ Tolerance, Decreased Safety Aware, Decreased UE Strength, Impaired Cognition, Impaired Funct Balance, Impaired I ADL's, Impaired Self-Care Skills Discharge Recommendations Plan/Recommendations: Continue POC Therapy Discharge Recommendati: Post Acute OT (Home health OT) Equpiment Recommendations-D/C: Bath Chair Treatment Plan/Plan of Care Treatment,Training & Education: Yes Patient would benefit from OT for education, treatment and training to promote independence in ADL's, mobility, safety and/or upper extremity function for ADL's. Plan of Care: ADL Retraining, Cognitive Retraining, Concurrent Therapy, Functional Mobility, Group Exercise/Act as Ind, UE Funct Exercise/Act, W/C Management Training Treatment Duration: Feb 21, 2022 Frequency: At least 5 of 7 days/Wk (IRF) Estimated Hrs Per Day: 1.5 hours per day (75-90 min/day) Agreement: Yes Rehab Potential: Fair Time/GCodes Start Time: 08:45 Stop Time: 09:45 Total Time Billed (hr/min): 60 Billed Treatment Time 1 visit EVM (10 min) ADL x2 (35 min) FA (15 min) Licha Lee OT Feb 07, 2022 09:45
--- NOTE | 2022-02-07 09:53 | Physical Therapy Daily Note ---
PT Daily Note-Current Subjective Patient in bed pre tx, agrees to PT, has no complaints of pain at rest but does have pain in right side residual limb with activity. Will be co-treating with OT for part of tx due to poor patient mobility, strength, endurance, severe pain with activity, coordinate UE and LE with activity, safety and reduce risk of f alls. Appearance Patient in recliner post tx with nurse call, phone, tray, all needs met. Mental Status Patient Orientation: Person, Place, Situation Transfers SCALE: Activities may be completed with or without assistive devices. 8-Mjpaskzwhf-gzwlfqs completes the activity by him/herself with no assistance from a helper. 5-Set-up or Clean-up Assistance-helper sets up or cleans up; patient completes activity. [place] assists only prior to or following the activity. 4-Supervision or Touching Assistance-helper provides verbal cues and/or touc [place]/steadying and/or contact guard assistance as patient completes activity. Assistance may be provided throughout the activity or intermittently. 3-Partial/Moderate Assistance-helper does LESS THAN HALF the effort. [place] lifts, holds or supports trunk or limbs, but provides less than half the effort. 2-Substantial/Maximal Assistance-helper does MORE THAN HALF the effort. [place] lifts or holds trunk or limbs and provides more than half the effort. 8-Tprnrummm-eifljx does ALL the effort. Patient does none of the effort to complete the activity. Or, the assistance of 2 or more helpers is required for the patient to complete the activity. If activity was not attempted, code reason: 7-Patient Refused. 9-Not Applicable-not attempted and the patient did not perform the activity before the current illness, exacerbation or injury. 10-Not Attempted due to Environmental Limitations-(lack of equipment, weather restraints, etc.). 88-Not Attempted due to Medical Conditions or Safety Concerns. Roll Left & Right (QC): 6 Lying to Sitting/Side of Bed(Q: 4 Sit to Stand (QC): 3 Chair/Ijl-hr-Pwsge Xfer(QC): 4 Toilet Transfer (QC): 4 Patient sits to the side of the bed, stands with min assist and then ambulates into the restroom to the toilet, has BM, wipes himself, is able to get brief down/up with CGA, goes to sink, bathes, partially dresses, stands and finishes dressing, sits back down at sink to finish ADL's. Weight Bearing Right Lower Extremity: Right Non Weight Bearing Left Lower Extremity: Left Full Weight Bearing Gait Training Distance: 60' Walk 10 feet (QC): 4 Walk 50 ft with 2 Turns(QC): 4 Gait Persons Needed: 1 Gait Assistive Device: FWW WC follow, cues for small, careful steps, foot does clear floor Wheelchair Training Does the Pt Use a Wheelchair?: Yes Wheel 50 ft with 2 turns (QC): 4 Wheel 150 ft (QC): 4 Type of Wheelchair: Manual SBA, cues for direction and safety around doorways and other obstacles. Exercises Seated Therapy Exercises: Long arc quads Seated Reps: 20 (RLE) Standing: Heel/toe raises, Mini squats Standing Reps: 15 standing activity working on balance during UE activity (alternating hands) Treatments PT performed bed mobility and transfers, ambulation, WC mobility, standing and positioning during bathing and dressing and toileting, standing and balance during UE activity, OT performed bathing, dressing, ADL's, toileting, UE activity, UE positioning and safety during activity. Assessment Current Status: Fair Progress very small seeping from incision on right residual limb PT Custodial Goals Custodial Goals PT Vp [employer] Goals Time Frame: Feb 26, 2022 Roll Left & Right (QC): 6 Sit to Lying (QC): 6 Lying-Sitting on Side/Bed(QC): 6 Sit to Stand (QC): 6 Chair/Syr-fs-Opmzn Xfer(QC): 6 Toilet Transfer (QC): 6 Car Transfer (QC): 6 Does the Patient Walk: Yes Walk 10 feet (QC): 6 Walk 50ft with 2 Turns (QC): 5 Walk 150 ft (QC): 6 Walking 10ft on Uneven Surface: 6 1 Step (curb) (QC): 4 4 Steps (QC): 4 12 Steps (QC): 3 Picking up an Object (QC): 6 Does the Pt use WC or Scooter?: Yes Wheel 50 feet with 2 turns (QC: 6 Type: Manual Wheel 150 feet: 6 Type: Manual PT Plan Problem List Problem List: Activity Tolerance, Functional Strength, Safety, Balance, Gait, Transfer, Bed Mobility, ROM Treatment/Plan Treatment Plan: Continue Plan of Care Treatment Plan: Bed Mobility, Education, Functional Activity Alyssa, Functional Strength, Group Therapy, Gait, Safety, Therapeutic Exercise, Transfers Treatment Duration: Mar 05, 2022 Frequency: At least 5 of 7 days/Wk (IRF) Estimated Hrs Per Day: 1.5 hours per day Patient and/or Family Agrees t: Yes Safety Risks/Education Patient Education: Gait Training, Transfer Techniques, Correct Positioning, W/C Management, Safety Issues Teaching Recipient: Patient Teaching Methods: Demonstration, Discussion Response to Teaching: Reinforcement Needed Time/GCodes Time In: 09 Time Out: 1000 Total Billed Treatment Time: 60 Total Billed Treatment 1 visit FA 60' co-treated from [id number] YVETTE LUCIO PT Feb 07, 2022 09:53
[2022-02-07] MEDS: polyethylene glycoL POWDER 17 GM (MIRALAX) PACK PO SCH ×2 (09:58→20:18)
[2022-02-07] MEDS: SENNA W/DOCUSATE (SENOKOT S) TABLET PO SCH ×2 (09:58→20:19)
[2022-02-07] MEDS: DOCUSATE SODIUM 100 MG (COLACE) CAP PO SCH ×2 (09:58→20:18)
--- NOTE | 2022-02-07 12:34 | ST Cognitive Linguistic Eval ---
Speech Evaluation-General Medical Diagnosis Right BKA Onset Date: Feb 02, 2022 Therapy Diagnosis Therapy Diagnosis: Intact Neurocognitive Skills Precautions Precautions: Fall, Pressure Ulcer Precautions/Isolations: Fall Prevention, Standard Precautions, Pressure Ulcer Referral Referring Physician: Dr. Frances Reason for Referral: Evaluation/Treatment Medical History Pertinent Medical History: DM, HTN Current History The patient is a 56 year-old male, who presents to the ARU in need of recovery following right BKA. Reviewed History: Yes Social History Current Living Status: Alone Speech PLF-Current Status Prior Level of Function The patient denied prior concerns or difficulties with his speech, language, or cognition. Subjective The patient was seated upright in his recliner, awake and alert upon entrance to the patient's room by the clinician. The patient greeted the clinician appropriately and was agreeable to participation in the cognitive linguistic assessment. Language Eval: Auditory Comprehends Simple Yes/No Ques: Functional Indent/Objects Multiple Jimenez: Functional Ident/Pics in Multiple Jimenez: Functional Follows 1-Step Commands: Functional Follows General Conversations: Functional Language Eval: Verbal Language Completes Spontaneous Greeting: Functional Produces Auto, Serial Info: Functional Imitates Simple Words/Phrases: Functional Word Finding: Functional Requests Basic Needs: Functional States Basic Personal Info: Functional Cognitive Patient Orientation The patient is independently oriented to self, location, month, day of the week, date, and year. Objective Cognitive Domain Attention: Mild Memory: WNL Problem Solving: Functional Composite Severity Rating: WNL The patient was unable to complete visual tasks stating his vision "needed help before all of this." The patient stated he has glasses, however, they are not helpful at this time. Objective Formal/Standardized Tests [facility] Mental Status Exam (UMS) Results The patient demonstrated a result of +24/26 on the SLUMS correlating to cognitive linguistic skills within normal limits. The patient was unable to complete clock drawing due to visual deficit (baseline). Oral Motor/Speech Production The patient does not display dysarthria or apraxia of speech at this time. The patient is 100% intelligible in known and unknown contexts. Impression The patient demonstrated cognitive linguistic skills within normal limits and at baseline function. The patient reports a visual impairment which is at baseline, as well. Speech Patient Assess Expression of Ideas/Wants: Expression (4) Understanding Verbal Content: Understands (4) Brief Interview-Mental Status: Yes Repetition of Three Words: Three (3) Temporal Orientation: Year: Correct (3) Temporal Orientation: Month: Accurate within 5 days(2) Temporal Orientation: Day: Correct (1) Recall : Wear to say "Sock": Yes, no cue required (2) Recall : Color: Yes, no cue required (2) Recall : Bed: Yes, no cue required (2) Memory/Recall Ability: Current season, Location of own room, That he or she is in a hsp/hsp unit Speech-Plan Treatment Plan Speech Therapy Treatment Plan: Discontinue ST Treatment Duration: Feb 07, 2022 Frequency: 1 time per week Estimated Hrs Per Day: .5 hour per day Rehab Potential: Fair Safety Risks/Education Teaching Recipient: Patient Teaching Methods: Discussion Response to Teaching: Verbalize Understanding Education Topics Provided: Results, Recommendations, Plan of Care Time Speech Therapy Time In: 10:00 Speech Therapy Time Out: 10:15 Total Billed Time: 15 Billed Treatment Time 1, KHURRAM Cyr Feb 07, 2022 12:34
--- NOTE | 2022-02-07 14:27 | Therapy Group Daily Note ---
Therapy Daily Group Note Patient Education Topic Exercises, Other List Below (pain management) Exercises LE Seated Exercise, UE Exercise Session Ratio (pt:therapist): 3:1 Goal of Session: Education on ARU Expectations, UE/LE Strengthing, Other (list) (pain management) Goal Met for this Session: Yes Pt Benefit of Group: Contributions to Others, F/U Use of Strategies @Home, Increased Functional Safety, Increased Functional Strength, Improved Cognition, Recognition of Peers, Socialization Other/Notes Pt propelled w/c to [facility] area for OT/PT group. Group consisted of introductions (name, place living), socialization, B UE/LE seated exercises, education on pain management and exercise. Pt introduced self appropriately and actively listened to peers. Pt tolerated B UE/LE seated exercises with modifications due to medical diagnosis. Pt acknowledged understanding of educational topics by engaging in conversation, giving personal examples and actively listening to topic. After therapy, pt sitting in recliner with call light/phone in reach. All needs met in room. Start Time: 13:00 Stop Time: 14:00 Total Billed Treatment Time: 60 Total Billed Treatment 1-GRP MORGAN BILLS Feb 07, 2022 14:27
[2022-02-07] MEDS: ENOXAPARIN 40 MG/0.4 ML (LOVENOX) SYR SQ SCH (14:30)
[2022-02-07 19:45] VITALS: BP 135/70
[2022-02-07] MEDS: LATANOPROST 0.005% (XALATAN) OPHTH SOLN 2.5 ML OU SCH (20:21)
[2022-02-08] MEDS: inSUlin ASPART (NovoLOG) 1 UNIT/0.01 ML (CHARGE PER UNIT) SC SCH ×4 (05:54→20:28)
--- NOTE | 2022-02-08 06:21 | PM&R Progress Note ---
Subjective HPI/CC On Admission Date Seen by Provider: Feb 08, 2022 Time Seen by Provider: 09:00 Subjective/Events-last exam 02/08/2022: Doing well Improved status Sugars improved Will transition to OHA soon 02/07/2022: Doing well Reviewed sugars Talked to him about transitioning to PO for DM management since he was only on Metformin in past Eye drops needs to be restarted after nurse calls pharmacy for exact type and dosing 02/06/2022: Patient tolerating pain well Reviewed meds Reviewed glucose Adjusting insulin Review of Systems General: Fatigue, Malaise Objective Exam Vital Signs Vital Signs Date Time Temp Pulse Resp B/P (MAP) Pulse Ox O2 Delivery O2 Flow Rate FiO2 02/08/22 20:35 Room Air 02/08/22 19:43 37.1 91 20 168/81 (110) 98 Capillary Refill : General Appearance: No Apparent Distress, WD/WN HEENT: PERRL/EOMI, Normal ENT Inspection, Pharynx Normal Neck: Full Range of Motion, Normal Inspection, Non Tender, Supple, Carotid Bruit Respiratory: Chest Non Tender, Lungs Clear, Normal Breath Sounds, No Accessory Muscle Use, No Respiratory Distress Cardiovascular: Regular Rate, Rhythm, No Edema, No Gallop, No JVD, No Murmur, Normal Peripheral Pulses Gastrointestinal: Normal Bowel Sounds, No Organomegaly, No Pulsatile Mass, Non Tender, Soft Back: Normal Inspection, No CVA Tenderness, No Vertebral Tenderness Extremity: Normal Capillary Refill, Normal Inspection, Normal Range of Motion (right amputaiton BK), Non Tender, No Calf Tenderness, No Pedal Edema Neurologic/Psychiatric: Alert, Oriented x3, No Motor/Sensory Deficits, Normal Mood/Affect, goods layer II-XII Norm as Tested, Motor Weakness (right leg BKA) Skin: Normal Color, Warm/Dry Lymphatic: No Adenopathy Results/Procedures Lab Patient resulted labs reviewed. FIM Transfers Therapy Code Descriptions/Definitions Functional [place] Measure: 0=Not Assessed/NA 4=Minimal Assistance 1=Total Assistance 5=Supervision or Setup 2=Maximal Assistance 6=Modified [place] 3=Moderate Assistance 7=Complete IndependenceSCALE: Activities may be completed with or without assistive devices. 6-Ellmjyyktm-emjicgs completes the activity by him/herself with no assistance from a helper. 5-Set-up or Clean-up Assistance-helper sets up or cleans up; patient completes activity. [place] assists only prior to or following the activity. 4-Supervision or Touching Assistance-helper provides verbal cues and/or touching/steadying and/or contact guard assistance as patient completes activity. Assistance may be provided throughout the activity or intermittently. 3-Partial/Moderate Assistance-helper does LESS THAN HALF the effort. [place] lifts, holds or supports trunk or limbs, but provides less than half the effort. 2-Substantial/Maximal Assistance-helper does MORE THAN HALF the effort. [place] lifts or holds trunk or limbs and provides more than half the effort. 8-Fbmykkrkp-wobhds does ALL the effort. Patient does none of the effort to complete the activity. Or, the assistance of 2 or more helpers is required for the patient to complete the activity. If activity was not attempted, code reason: 7-Patient Refused. 9-Not Applicable-not attempted and the patient did not perform the activity before the current illness, exacerbation or injury. 10-Not Attempted due to Environmental Limitations-(lack of equipment, weather restraints, etc.). 88-Not Attempted due to Medical Conditions or Safety Concerns. Roll Left to Right (QC): 6 Sit to Lying (QC): 3 Sit to Stand (QC): 3 Chair/Kif-nr-Tbxxc Xfer(QC): 4 Car Transfer (QC): 3 Gait Training Does the Patient Walk?: Yes Distance: 60' Walk 10 feet (QC): 4 Walk 50 ft with 2 Turns(QC): 4 Walk 150 ft (QC): 88 Walking 10ft/uneven surface-QC: 3 Gait Persons Needed: 1 Gait Assistive Device: FWW Wheelchair Training Does the Pt Use a Wheelchair?: Yes Distance: 150 Wheel 50 ft with 2 turns (QC): 4 Wheel 150 ft (QC): 4 Type of Wheelchair: Manual Stair Training #of Steps: 0 1 Step (curb) (QC): 88 4 Steps (QC): 88 12 Steps (QC): 88 Balance Picking up an Object (QC): 88 ADL-Treatment Eating (QC): 5 (per clinical judgment) Oral Hygiene (QC): 3 Shower/Bathe Self (QC): 3 Upper Body Dressing (QC): 5 Lower Body Dressing (QC): 3 On/Off Footwear (QC): 3 Toileting Hygiene (QC): 3 Assessment/Plan Assessment and Plan Assess & Plan/Chief Complaint Assessment: 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
--- NOTE | 2022-02-08 06:25 | Individualized Plan of Care ---
Individualized Plan of Care Rehab Nursing IPOC Order Admission Date Feb 05, 2022 at 13:19 Current Orders Orders Admission Order(Inpt,Obs,Sdc) (02/05/22 11:35) Vital Signs: Per Unit Policy ( 08,16,00 (02/05/22 11:35) George Sparrow (02/05/22 11:35) Sequential Compression Device (02/05/22 11:35) Tester/Lift Trucker-Inpt Rehab Con (02/05/22 11:35) Rehab Nursing Orders-Ipoc (02/05/22 11:35) Physical Therapy Rehab Orders (02/05/22 11:35) Occupational Therapy Rehab Ord (02/05/22 11:35) Speech Therapy Rehab Orders (02/05/22 11:35) Cbc With Automated Diff (02/06/22 06:00) Comprehensive Metabolic Panel (02/06/22 06:00) Precautions (Aru) (02/05/22 11:35) Rehab-Intensity Of Therapy (02/05/22 11:35) Initiate Admission Nursing Pro .admission (02/05/22 11:35) Alprazolam Tablet (Xanax Tablet) (02/05/22 11:45) Calcium Carbonate Chew Tablet (Antacid C (02/05/22 11:45) Diphenhydramine Tablet (Benadryl Tablet) (02/05/22 11:45) Docusate Sodium Capsule (Colace Capsule) (02/05/22 21:00) Docusate Sodium Capsule (Colace Capsule) (02/05/22 11:45) Bisacodyl Suppository (Dulcolax Supposit (02/05/22 11:45) Lactulose Oral Solution (Enulose Oral So (02/05/22 11:45) Na Phos/Na Biphos Enema (Fleet Enema Olaf (02/05/22 11:45) Guaifenesin/Codeine Syrup (Robitussin Ac (02/05/22 11:45) Loperamide Tablet (Imodium Tablet) (02/05/22 11:45) Melatonin Tablet (Melatonin Tablet) (02/05/22 11:45) Polyethylene Glycol Powder Pkt (Miralax (02/05/22 21:00) Ondansetron Oral Dissolve Tab (Zofran (02/05/22 11:45) Senna S Tablet (Senokot S Tablet) (02/05/22 21:00) Acetaminophen Tablet/Caplet (Tylenol T (02/05/22 11:45) Admission Arrival Bed Request (02/05/22 13:18) Patient Visit (02/05/22 ) Pt Eval Moderate Complexity (02/05/22 ) Gait Training, Ea 15 Min (02/05/22 ) Diabetes Education (02/05/22 14:42) Code/Resuscitation (02/05/22 15:54) Cho 60g/M 1snack (16-2000 Jack) (02/05/22 Dinner) Hydrocodone/Apap 10/325 Tablet (Lortab 1 (02/05/22 16:00) Melatonin Tablet (Melatonin Tablet) (02/05/22 16:00) Polyethylene Glycol Powder Pkt (Miralax (02/05/22 16:00) Insulin Aspart (Novolog) (Novolog (Charg (02/05/22 16:00) Piperacillin Sodium/Tazobactam (Zosyn Vi (02/05/22 16:00) Acetaminophen Tablet/Caplet (Tylenol T (02/05/22 16:00) Ondansetron Injection (Zofran Injectio (02/05/22 16:00) Insulin Determir (Per Unit) (Levemir (Pe (02/05/22 21:00) Morphine Injection (Morphine Injection (02/05/22 16:00) Consult General Surgery (02/05/22 15:54) Accucheck Achs ACHS (02/05/22 15:54) Iv Convert To Heplock (Order) (02/05/22 15:54) Enoxaparin Injection (Lovenox Injection) (02/06/22 11:30) Piperacillin Sodium/Tazobactam (Zosyn Vi (02/05/22 19:00) Dressing Order (Intervention) DAILY (02/06/22 17:53) Insulin Determir (Per Unit) (Levemir (Pe (02/06/22 21:00) Insulin Determir (Per Unit) (Levemir (Pe (02/07/22 07:00) Latanoprost 0.005% Ophth Soln (Xalatan 0 (02/07/22 21:00) Timolol 0.5% Ophthalmic Soln (Timoptic 0 (02/08/22 09:00) Patient Visit (02/07/22 ) Speech Sound Lang Comp (02/07/22 ) Patient Visit (02/07/22 ) Functional Activities, Ea 15 (02/07/22 ) Patient Visit (02/07/22 ) Insulin Determir (Per Unit) (Levemir (Pe (02/08/22 21:00) Rehab Nursing Orders: Ongoing Assess. of Function Status, Bladder Management, Bladder Scan, Bladder Training, Bowel Management, Bowel Training, Disease Management & Educaiton, DVT Prophylaxis, Fall Prevention, Fluid/Electrolyte/Nutrition Mgmt, Infection Prevention, Medication Management & Education, Management of Risks & Complications, Management of Skin Intergrity, Nutrition Management, Pain Management, Patient/Family Support, Safety Management, Wound Management Intensity of Therapy to be met Patient to be seen: Min.3h per day/5 of 7d PT IPOC Problem List: Activity Tolerance, Functional Strength, Safety, Balance, Gait, Transfer, Bed Mobility, ROM Treatment Plan: Continue Plan of Care Bed Mobility, Education, Functional Activity Alyssa, Functional Strength, Group Therapy, Gait, Safety, Therapeutic Exercise, Transfers Treatment Duration: Mar 05, 2022 Frequency: At least 5 of 7 days/Wk (IRF) Estimated Hrs Per Day: 1.5 hours per day OT IPOC Problems: Decreased Activ Tolerance, Decreased Safety Aware, Decreased UE Strength, Impaired Cognition, Impaired Funct Balance, Impaired I ADL's, Impaired Self-Care Skills OT Treatment, Training and Edu: Yes Plan of Care: ADL Retraining, Cognitive Retraining, Concurrent Therapy, Functional Mobility, Group Exercise/Act as Ind, UE Funct Exercise/Act, W/C Management Training Treatment Duration: Feb 21, 2022 Frequency: At least 5 of 7 days/Wk (IRF) Estimated Hrs Per Day: 1.5 hours per day (75-90 min/day) ST IPOC Speech Therapy Treatment Plan: Discontinue ST Treatment Duration: Feb 07, 2022 Frequency: 1 time per week Estimated Hrs Per Day: .5 hour per day Tester/Lift Trucker/Case Mgmt Tester/Lift Trucker/Case Managemen: Discharge Planning Dietitian/Medical/Surgery Registered Nurse Dietitian/Medical/Surgery Registered Nurse to monitor nutritional status and make changes and/or recommendations as needed and work with speech pathology on dietary upgrades as the occur. Physician IPOC Medical Issues being managed closely and that require the 24 hour availability of a physician: Recent right BKA will require close monitoring of DM and BP and will monitor closely to prevent cellulitis of post op site Medical Issues: Bowel/Bladder Function, DVT Prophylaxis, Falls Precautions, Fluid/Electrolyte/Nutrition Balance, Infection Protection, Wound Care Brief Synthesis of Preadmission Screen, Post-Admission Evaluation, and Therapy Evaluations: PT OT will use assistive devices in order to increase independence and increase ambulatory ability in order to return back home Medical Prognosis: Good Anticipated Length of Stay: 7 days ITZ BELCHER DO Feb 08, 2022 06:25
[2022-02-08 07:45] VITALS: BP 148/69
--- NOTE | 2022-02-08 08:49 | Progress Note - Surgery ---
GODWIN ALLISON 02/08/22 0849: Subjective Date Seen by a Provider: Feb 08, 2022 Time Seen by a Provider: 08:24 Subjective/Events-last exam Pt working with physical therapist, tolerating well. States his pain is well controlled. He denies fever, chills, N/V, chest pain, SOB, or any other complaints. Review of Systems General: No Chills, No Night Sweats HEENT: No Visual Changes Pulmonary: No Dyspnea, No Cough Cardiovascular: No: Chest Pain Gastrointestinal: No: Nausea, Vomiting, Abdominal Pain Genitourinary: No Retention Musculoskeletal: leg pain (Right BKA) Objective Exam Vital Signs Date Time Temp Pulse Resp B/P (MAP) Pulse Ox O2 Delivery O2 Flow Rate FiO2 02/08/22 07:45 36.5 88 14 148/69 (95) 96 Room Air 02/07/22 20:10 Room Air 02/07/22 19:45 36.9 88 16 135/70 (91) 97 Room Air 02/07/22 09:00 Room Air I & O 02/08/22 06:59 Intake Total 100 ml Balance 100 ml Capillary Refill : General Appearance: No Apparent Distress, WD/WN HEENT: PERRL/EOMI, Moist Mucous Membranes Neck: Non Tender, Supple Respiratory: Lungs Clear, Normal Breath Sounds, No Accessory Muscle Use, No Respiratory Distress Cardiovascular: Regular Rate, Rhythm, No Murmur Peripheral Pulses: 2+ Radial Pulses (R), 2+ Radial Pulses (L) Gastrointestinal: non tender, soft Extremity: No Calf Tenderness, No Pedal Edema, Other (Right BKA dressing in place with no surrounding erythema. 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 Review of Systems General: No Chills, No Night Sweats Pulmonary: No Dyspnea, No Cough Cardiovascular: No: Chest Pain Gastrointestinal: No: Nausea, Vomiting, Abdominal Pain Musculoskeletal: leg pain (Right BKA) Objective Exam General Appearance: No Apparent Distress, WD/WN HEENT: Moist Mucous Membranes Respiratory: Lungs Clear, Normal Breath Sounds, No Accessory Muscle Use, No Respiratory Distress Cardiovascular: Regular Rate, Rhythm, No Murmur Extremity: Other (Right BKA dressing in place with no surrounding erythema. 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 Will follow periodically, call if needed. Once D/C'd home will see as an outpt and consult Prosthetics for diaper machine tender and leg. Supervisory-Addendum Brief Verification & Attestation Participated in pt care: history, MDM, physical Personally performed: exam, history, MDM, supervision of care Care discussed with: Medical Student Procedures: n/a Verification and Attestation of Medical Student E/M Service A medical student performed and documented this service. I then reviewed and verified all information documented by the medical student and made modifications to such information, when appropriate. I personally performed a physical exam, medical decision making and then discussed any differences betwee n the notes and made revisions as necessary to create one note. Ayden Clinton , 02/08/22 , 20:44 GODWIN ALLISON Feb 08, 2022 08:49 AYDEN CLINTON DO Feb 08, 2022 20:45
--- NOTE | 2022-02-08 08:51 | Physical Therapy Daily Note ---
PT Daily Note-Current Subjective Patient in bed pre tx, agrees to PT, has no complaints of pain at rest but does have some with activity. Appearance Patient in WC in room with nurse call Mental Status Patient Orientation: Person, Place, Situation Transfers SCALE: Activities may be completed with or without assistive devices. 0-Juetuqjlai-zoodjtv completes the activity by him/herself with no assistance from a helper. 5-Set-up or Clean-up Assistance-helper sets up or cleans up; patient completes activity. [place] assists only prior to or following the activity. 4-Supervision or Touching Assistance-helper provides verbal cues and/or to uching/steadying and/or contact guard assistance as patient completes activity. Assistance may be provided throughout the activity or intermittently. 3-Partial/Moderate Assistance-helper does LESS THAN HALF the effort. [place] lifts, holds or supports trunk or limbs, but provides less than half the effort. 2-Substantial/Maximal Assistance-helper does MORE THAN HALF the effort. [place] lifts or holds trunk or limbs and provides more than half the effort. 0-Yfahemvfx-ldmcxx does ALL the effort. Patient does none of the effort to complete the activity. Or, the assistance of 2 or more helpers is required for the patient to complete the activity. If activity was not attempted, code reason: 7-Patient Refused. 9-Not Applicable-not attempted and the patient did not perform the activity before the current illness, exacerbation or injury. 10-Not Attempted due to Environmental Limitations-(lack of equipment, weather restraints, etc.). 88-Not Attempted due to Medical Conditions or Safety Concerns. Roll Left & Right (QC): 6 Sit to Lying (QC): 6 Lying to Sitting/Side of Bed(Q: 4 Sit to Stand (QC): 4 Chair/Tqs-ks-Pxosu Xfer(QC): 4 Toilet Transfer (QC): 4 During ambulation patient has a bowel movement, turns around and heads back to his restroom, has BM in toilet, nurse aide helps clean patient, he gets on new brief and shorts. Weight Bearing Right Lower Extremity: Right Non Weight Bearing Left Lower Extremity: Left Full Weight Bearing Gait Training Distance: 100' Walk 10 feet (QC): 4 Walk 50 ft with 2 Turns(QC): 4 Gait Persons Needed: 1 Gait Assistive Device: FWW slow ambulation, has fair foot clearance Wheelchair Training Does the Pt Use a Wheelchair?: Yes Wheel 50 ft with 2 turns (QC): 4 Wheel 150 ft (QC): 4 Type of Wheelchair: Manual 150' Exercises Supine Ex: Quad Set, Straight leg raise, Hip abd/add Supine Reps: 20 (RLE) prone hip extension stretch 5 min, supine knee extension stretch 5 min, LAQ RLE 5 min, bridging on ball x20, LTR on ball x20 Treatments bed mobility and transfers, ambulation, toileting, WC mobility, stretching and strengthening Assessment Current Status: Fair Progress has trouble achieving a good quad contraction on the RLE PT Ham Curer Goals Ham Curer Goals PT Ham Curer Goals Time Frame: Feb 26, 2022 Roll Left & Right (QC): 6 Sit to Lying (QC): 6 Lying-Sitting on Side/Bed(QC): 6 Sit to Stand (QC): 6 Chair/Ycs-ma-Wdrbi Xfer(QC): 6 Toilet Transfer (QC): 6 Car Transfer (QC): 6 Does the Patient Walk: Yes Walk 10 feet (QC): 6 Walk 50ft with 2 Turns (QC): 5 Walk 150 ft (QC): 6 Walking 10ft on Uneven Surface: 6 1 Step (curb) (QC): 4 4 Steps (QC): 4 12 Steps (QC): 3 Picking up an Object (QC): 6 Does the Pt use WC or Scooter?: Yes Wheel 50 feet with 2 turns (QC: 6 Type: Manual Wheel 150 feet: 6 Type: Manual PT Plan Problem List Problem List: Activity Tolerance, Functional Strength, Safety, Balance, Gait, Transfer, Bed Mobility, ROM Treatment/Plan Treatment Plan: Continue Plan of Care Treatment Plan: Bed Mobility, Education, Functional Activity Alyssa, Functional Strength, Group Therapy, Gait, Safety, Therapeutic Exercise, Transfers Treatment Duration: Mar 05, 2022 Frequency: At least 5 of 7 days/Wk (IRF) Estimated Hrs Per Day: 1.5 hours per day Patient and/or Family Agrees t: Yes Safety Risks/Education Patient Education: Gait Training, Transfer Techniques, Correct Positioning, Safety Issues Teaching Recipient: Patient Teaching Methods: Demonstration, Discussion Response to Teaching: Reinforcement Needed Time/GCodes Time In: 0800 Time Out: 0900 Total Billed Treatment Time: 60 Total Billed Treatment 1 visit EX 30' FA 30' YVETTE LUCIO PT Feb 08, 2022 08:51
[2022-02-08] MEDS: polyethylene glycoL POWDER 17 GM (MIRALAX) PACK PO SCH ×2 (10:06→20:30)
[2022-02-08] MEDS: TIMOLOL MALEATE 0.5% 5 ML (TIMOPTIC) BTL OU SCH (10:06)
[2022-02-08] MEDS: SENNA W/DOCUSATE (SENOKOT S) TABLET PO SCH ×2 (10:06→20:29)
[2022-02-08] MEDS: DOCUSATE SODIUM 100 MG (COLACE) CAP PO SCH ×2 (10:06→20:30)
--- NOTE | 2022-02-08 11:13 | Occupational Ther Daily Note ---
OT Current Status-Daily Note Subjective Pt presents seated in wheelchair. He is agreeable to a shower. He stated he already went into bathroom and performed oral hygiene independently this morning. Appearance Pt was left in wheelchair with nursing present. All needs were in reach. Mental Status/Objective Patient Orientation: Person, Place, Time, Situation Attachments: IV ADL-Treatment Therapy Code Descriptions/Definitions Functional [place] Measure: 0=Not Assessed/NA 4=Minimal Assistance 1=Total Assistance 5=Supervision or Setup 2=Maximal Assistance 6=Modified [place] 3=Moderate Assistance 7=Complete IndependenceSCALE: Activities may be completed with or without assistive devices. 4-Wvqlxkjxfm-vayjmqi completes the activity by him/herself with no assistance from a helper. 5-Set-up or Clean-up Assistance-helper sets up or cleans up; patient completes activity. [place] assists only prior to or following the activity. 4-Supervision or Touching Assistance-helper provides verbal cues and/or touching/steadying and/or contact guard assistance as patient completes activity. Assistance may be provided throughout the activity or intermittently. 3-Partial/Moderate Assistance-helper does LESS THAN HALF the effort. [place] lifts, holds or supports trunk or limbs, but provides less than half the effort. 2-Substantial/Maximal Assistance-helper does MORE THAN HALF the effort. [place] lifts or holds trunk or limbs and provides more than half the effort. 0-Jhcjjshsf-sawryc does ALL the effort. Patient does none of the effort to complete the activity. Or, the assistance of 2 or more helpers is required for the patient to complete the activity. If activity was not attempted, code reason: 7-Patient Refused. 9-Not Applicable-not attempted and the patient did not perform the activity before the current illness, exacerbation or injury. 10-Not Attempted due to Environmental Limitations-(lack of equipment, weather restraints, etc.). 88-Not Attempted due to Medical Conditions or Safety Concerns. Oral Hygiene (QC): 6 (Per pt report) Shower/Bathe Self (QC): 3 Upper Body Dressing (QC): 5 Lower Body Dressing (QC): 3 On/Off Footwear: 3 Pt was pushed in his wheelchair into the bathroom and needed min- mod assist for proper positioning in front of the shower chair. Throughout session, he needed mod verbal cues for remembering to lock his wheelchair breaks. He performed sit to stand transfer with CGA and hopped into shower with the assistance of grab bars. He pulled down pants and underwear with min assist for balance. Shower performed 100% in sitting. Cues on performing lateral pelvic leans in order to wash buttocks. Assistance needed to wash L foot secondary to poor balance and flexibility. Education on compensatory methods, pt may benefit from instruction on LHS if flexibility does not improve. Min a to don LB clothing due to needing balance assist when removing 1 hand from grab bar. Pt maneuvered w/c in front of sink to comb hair with independence. Once in the room, still seated in w/c, pt donned sock with min assist and shoe with CGA. Other Treatment Pt performed seated functional activity to improve flexibility, sitting balance, and problem solving with repetition of putting on/taking off rubber bands around his foot to mock ADL task of donning/doffing shoes/socks. He required min-mod verbal cues for task, for proper positioning, adaptations, and importance of breathing through task to make task easier for pt. Pt unable to bend forward and maintain balance without 1UE support on w/c or side table. Education OT Patient Education: Correct positioning, Energy conservation, Modified ADL techniques, Progress toward Goal/Update tx plan, Purpose of tx/functional activities, Transfer techniques, W/C management Teaching Recipient: Patient Teaching Methods: Demonstration, Discussion Response to Teaching: Verbalize Understanding, Return Demonstration OT Short Term Goals Short Term Goals Time Frame: Feb 14, 2022 Eatin Oral hygiene: 5 Toileting hygiene: 4 Shower/bathe self: 4 Upper body dressin Lower body dressin Putting on/taking off footwear: 4 OT Copper Plate Lithographer Goals Custodial Goals Time Frame: Feb 21, 2022 Eating (QC): 6 Oral Hygiene (QC): 6 Toileting Hygiene (QC): 6 Shower/Bathe Self (QC): 5 Upper Body Dressing (QC): 6 Lower Body Dressing (QC): 5 On/Off Footwear (QC): 5 Additional Goals: 1-Demonstrate ADL Tasks, 2-Verbalize Understanding, 3- ImproveStrength/Alyssa 1=Demonstrate adherence to instructed precautions during ADL tasks. 2=Patient will verbalize/demonstrate understanding of assistive devices/modifications for ADL. 3=Patient will improve strength/tolerance for activity to enable patient to perform ADL's. OT Education/Plan Problem List/Assessment Assessment: Decreased Activ Tolerance, Decreased Safety Aware, Impaired Coordination, Impaired Funct Balance Discharge Recommendations Plan/Recommendations: Continue POC Therapy Discharge Recommendati: Post Acute OT Equpiment Recommendations-D/C: Rails on Tub/Shower, Bath Chair, Long Shoe [place] Treatment Plan/Plan of Care Treatment,Training & Education: Yes Patient would benefit from OT for education, treatment and training to promote independence in ADL's, mobility, safety and/or upper extremity function for ADL's. Plan of Care: ADL Retraining, Cognitive Retraining, Concurrent Therapy, Functional Mobility, Group Exercise/Act as Ind, UE Funct Exercise/Act, W/C Management Training Treatment Duration: Feb 21, 2022 Frequency: At least 5 of 7 days/Wk (IRF) Estimated Hrs Per Day: 1.5 hours per day (75-90 min/day) Agreement: Yes Rehab Potential: Fair Time/GCodes Start Time: 10:00 Stop Time: 11:00 Total Time Billed (hr/min): 60 Billed Treatment Time 1 Visit ADL x3 (50 minutes) FA (10 minutes) Treatment note written by JOHNNY Kitchen. Note approved by OTR/Mel Lee. Licha Lee OT Feb 08, 2022 11:13
[2022-02-08] MEDS: ENOXAPARIN 40 MG/0.4 ML (LOVENOX) SYR SQ SCH (12:26)
--- NOTE | 2022-02-08 13:43 | Occupational Ther Daily Note ---
OT Current Status-Daily Note Subjective Pt in w/c completing a word search. He is agreeable to OT. Appearance Pt left in w/c with all needs in reach. Mental Status/Objective Patient Orientation: Person, Place, Time, Situation Attachments: IV ADL-Treatment Therapy Code Descriptions/Definitions Functional [place] Measure: 0=Not Assessed/NA 4=Minimal Assistance 1=Total Assistance 5=Supervision or Setup 2=Maximal Assistance 6=Modified [place] 3=Moderate Assistance 7=Complete IndependenceSCALE: Activities may be completed with or without assistive devices. 7-Lsxmteisbk-rplzhik completes the activity by him/herself with no assistance from a helper. 5-Set-up or Clean-up Assistance-helper sets up or cleans up; patient completes activity. [place] assists only prior to or following the activity. 4-Supervision or Touching Assistance-helper provides verbal cues and/or touching/steadying and/or contact guard assistance as patient completes activity. Assistance may be provided throughout the activity or intermittently. 3-Partial/Moderate Assistance-helper does LESS THAN HALF the effort. [place] lifts, holds or supports trunk or limbs, but provides less than half the effort. 2-Substantial/Maximal Assistance-helper does MORE THAN HALF the effort. [place] lifts or holds trunk or limbs and provides more than half the effort. 2-Mbxxnmhyy-xzgpok does ALL the effort. Patient does none of the effort to complete the activity. Or, the assistance of 2 or more helpers is required for the patient to complete the activity. If activity was not attempted, code reason: 7-Patient Refused. 9-Not Applicable-not attempted and the patient did not perform the activity before the current illness, exacerbation or injury. 10-Not Attempted due to Environmental Limitations-(lack of equipment, weather restraints, etc.). 88-Not Attempted due to Medical Conditions or Safety Concerns. Other Treatment Pt completed UE exercises sitting in w/c focusing on endurance, core strength and balance, and strength of UE's due to his need to use more of his UE strength with transferring and other functional activities. UE exercises were completed with 3 lb hand weights and min verbal and visual cues. 15 reps each of UE exercises included: shoulder flexion, horizontal shoulder abduction/ adduction, tricep extension, elbow flexion/extension, scapular internal/external rotation, scapular protraction/retraction, supination/pronation, wrist flexion/extension, and ulnar and radial deviation. After completion of UE exercises, pt completed sit<> stand transfer with supervision and participated in functional activity to work on standing balance, and LE/UE strength and coordination. While standing, pt threw x16 weighted washers, CGA for safety throughout. Education OT Patient Education: Energy conservation, Exercise program, Progress toward Goal/Update tx plan, Purpose of tx/functional activities, Safety issues, Transfer techniques Teaching Recipient: Patient Teaching Methods: Demonstration, Discussion Response to Teaching: Verbalize Understanding, Return Demonstration OT Short Term Goals Short Term Goals Time Frame: Feb 14, 2022 Eatin Oral hygiene: 5 Toileting hygiene: 4 Shower/bathe self: 4 Upper body dressin Lower body dressin Putting on/taking off footwear: 4 OT Correction Goals Telephone Cleaner Goals Time Frame: Feb 21, 2022 Eating (QC): 6 Oral Hygiene (QC): 6 Toileting Hygiene (QC): 6 Shower/Bathe Self (QC): 5 Upper Body Dressing (QC): 6 Lower Body Dressing (QC): 5 On/Off Footwear (QC): 5 Additional Goals: 1-Demonstrate ADL Tasks, 2-Verbalize Understanding, 3- ImproveStrength/Alyssa 1=Demonstrate adherence to instructed precautions during ADL tasks. 2=Patient will verbalize/demonstrate understanding of assistive devices/modifications for ADL. 3=Patient will improve strength/tolerance for activity to enable patient to perform ADL's. OT Education/Plan Problem List/Assessment Assessment: Decreased Activ Tolerance, Decreased Safety Aware, Decreased UE Strength, Impaired Coordination, Impaired Funct Balance, Impaired Self-Care Skills Discharge Recommendations Plan/Recommendations: Continue POC Therapy Discharge Recommendati: Post Acute OT Equpiment Recommendations-D/C: Rails on Tub/Shower, Long Shoe [place] Treatment Plan/Plan of Care Treatment,Training & Education: Yes Patient would benefit from OT for education, treatment and training to promote independence in ADL's, mobility, safety and/or upper extremity function for ADL's. Plan of Care: ADL Retraining, Cognitive Retraining, Concurrent Therapy, Functional Mobility, Group Exercise/Act as Ind, UE Funct Exercise/Act, W/C Management Training Treatment Duration: Feb 21, 2022 Frequency: At least 5 of 7 days/Wk (IRF) Estimated Hrs Per Day: 1.5 hours per day (75-90 min/day) Agreement: Yes Rehab Potential: Fair Time/GCodes Start Time: 13:00 Stop Time: 13:30 Total Time Billed (hr/min): 30 Billed Treatment Time 1 visit Ex 1 (20 min) FA 1 (10 min) Licha Lee OT Feb 08, 2022 13:43
--- NOTE | 2022-02-08 14:53 | Physical Therapy Daily Note ---
PT Daily Note-Current Subjective Patient in WC pre tx, agrees to PT, has no complaints of pain at rest. Appearance Patient in WC at bedside post tx with nurse call, phone, tray, all needs met. Mental Status Patient Orientation: Person, Place, Situation Transfers SCALE: Activities may be completed with or without assistive devices. 5-Pklqyfdofh-goxfzeu completes the activity by him/herself with no assistance from a helper. 5-Set-up or Clean-up Assistance-helper sets up or cleans up; patient completes activity. [place] assists only prior to or following the activity. 4-Supervision or Touching Assistance-helper provides verbal cues and/or touching/steadying and/or contact guard assistance as patient completes activity. Assistance may be provided throughout the activity or intermittently. 3-Partial/Moderate Assistance-helper does LESS THAN HALF the effort. [place] lifts, holds or supports trunk or limbs, but provides less than half the effort. 2-Substantial/Maximal Assistance-helper does MORE THAN HALF the effort. [place] lifts or holds trunk or limbs and provides more than half the effort. 9-Rppjcdihw-xieaau does ALL the effort. Patient does none of the effort to complete the activity. Or, the assistance of 2 or more helpers is required for the patient to complete the activity. If activity was not attempted, code reason: 7-Patient Refused. 9-Not Applicable-not attempted and the patient did not perform the activity before the current illness, exacerbation or injury. 10-Not Attempted due to Environmental Limitations-(lack of equipment, weather restraints, etc.). 88-Not Attempted due to Medical Conditions or Safety Concerns. Sit to Stand (QC): 4 Chair/Sds-ez-Orgjn Xfer(QC): 4 Weight Bearing Right Lower Extremity: Right Non Weight Bearing Left Lower Extremity: Left Full Weight Bearing Gait Training Distance: 100'x2 Walk 10 feet (QC): 4 Walk 50 ft with 2 Turns(QC): 4 Gait Persons Needed: 1 Gait Assistive Device: FWW slow but steady ambulation, short hops, good foot clearance Exercises NuStep Minutes: 15 NuStep Workload: 5 Treatments transfers, ambulation, functional strengthening Assessment Current Status: Fair Progress SBA with transfers and ambulation PT Nursing Home Goals Nursing Home Goals PT Nursing Home Goals Time Frame: Feb 26, 2022 Roll Left & Right (QC): 6 Sit to Lying (QC): 6 Lying-Sitting on Side/Bed(QC): 6 Sit to Stand (QC): 6 Chair/Gee-lt-Holpb Xfer(QC): 6 Toilet Transfer (QC): 6 Car Transfer (QC): 6 Does the Patient Walk: Yes Walk 10 feet (QC): 6 Walk 50ft with 2 Turns (QC): 5 Walk 150 ft (QC): 6 Walking 10ft on Uneven Surface: 6 1 Step (curb) (QC): 4 4 Steps (QC): 4 12 Steps (QC): 3 Picking up an Object (QC): 6 Does the Pt use WC or Scooter?: Yes Wheel 50 feet with 2 turns (QC: 6 Type: Manual Wheel 150 feet: 6 Type: Manual PT Plan Problem List Problem List: Activity Tolerance, Functional Strength, Safety, Balance, Gait, Transfer, Bed Mobility, ROM Treatment/Plan Treatment Plan: Continue Plan of Care Treatment Plan: Bed Mobility, Education, Functional Activity Alyssa, Functional Strength, Group Therapy, Gait, Safety, Therapeutic Exercise, Transfers Treatment Duration: Mar 05, 2022 Frequency: At least 5 of 7 days/Wk (IRF) Estimated Hrs Per Day: 1.5 hours per day Patient and/or Family Agrees t: Yes Safety Risks/Education Patient Education: Gait Training, Transfer Techniques, Correct Positioning, Safety Issues Teaching Recipient: Patient Teaching Methods: Demonstration, Discussion Response to Teaching: Reinforcement Needed Time/GCodes Time In: 1425 Time Out: 1455 Total Billed Treatment Time: 30 Total Billed Treatment 1 visit EX 15' FA 15' YVETTE LUCIO PT Feb 08, 2022 14:53
[2022-02-08 19:43] VITALS: BP 168/81
[2022-02-08] MEDS: LATANOPROST 0.005% (XALATAN) OPHTH SOLN 2.5 ML OU SCH (20:28)
[2022-02-09] MEDS: inSUlin ASPART (NovoLOG) 1 UNIT/0.01 ML (CHARGE PER UNIT) SC SCH ×4 (05:50→20:43)
--- NOTE | 2022-02-09 07:11 | PM&R Progress Note ---
Subjective HPI/CC On Admission Date Seen by Provider: Feb 09, 2022 Subjective/Events-last exam 02/09/2022: Patient doing well Sugars reviewed No pain reported 02/08/2022: Doing well Improved status Sugars improved Will transition to OHA soon 02/07/2022: Doing well Reviewed sugars Talked to him about transitioning to PO for DM management since he was only on Metformin in past Eye drops needs to be restarted after nurse calls pharmacy for exact type and dosing 02/06/2022: Patient tolerating pain well Reviewed meds Reviewed glucose Adjusting insulin Review of Systems Musculoskeletal: leg pain Objective Exam Vital Signs Vital Signs Date Time Temp Pulse Resp B/P (MAP) Pulse Ox O2 Delivery O2 Flow Rate FiO2 02/09/22 21:00 95 Room Air 02/09/22 19:51 37.3 86 18 161/85 (110) Capillary Refill : General Appearance: No Apparent Distress, WD/WN HEENT: PERRL/EOMI, Normal ENT Inspection, Pharynx Normal Neck: Full Range of Motion, Normal Inspection, Non Tender, Supple, Carotid Bruit Respiratory: Chest Non Tender, Lungs Clear, Normal Breath Sounds, No Accessory Muscle Use, No Respiratory Distress Cardiovascular: Regular Rate, Rhythm, No Edema, No Gallop, No JVD, No Murmur, Normal Peripheral Pulses Gastrointestinal: Normal Bowel Sounds, No Organomegaly, No Pulsatile Mass, Non Tender, Soft Back: Normal Inspection, No CVA Tenderness, No Vertebral Tenderness Extremity: Normal Capillary Refill, Normal Inspection, Normal Range of Motion (right amputaiton BK), Non Tender, No Calf Tenderness, No Pedal Edema Neurologic/Psychiatric: Alert, Oriented x3, No Motor/Sensory Deficits, Normal Mood/Affect, stage set 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 FIM Transfers Therapy Code Descriptions/Definitions Functional [place] Measure: 0=Not Assessed/NA 4=Minimal Assistance 1=Total Assistance 5=Supervision or Setup 2=Maximal Assistance 6=Modified [place] 3=Moderate Assistance 7=Complete IndependenceSCALE: Activities may be completed with or without assistive devices. 3-Onkpfmggsu-kxgxzwy completes the activity by him/herself with no assistance from a helper. 5-Set-up or Clean-up Assistance-helper sets up or cleans up; patient completes activity. [place] assists only prior to or following the activity. 4-Supervision or Touching Assistance-helper provides verbal cues and/or touching/steadying and/or contact guard assistance as patient completes activity. Assistance may be provided throughout the activity or intermittently. 3-Partial/Moderate Assistance-helper does LESS THAN HALF the effort. [place] lifts, holds or supports trunk or limbs, but provides less than half the effort. 2-Substantial/Maximal Assistance-helper does MORE THAN HALF the effort. [place] lifts or holds trunk or limbs and provides more than half the effort. 9-Ziqdpbnpy-crnogt does ALL the effort. Patient does none of the effort to complete the activity. Or, the assistance of 2 or more helpers is required for the patient to complete the activity. If activity was not attempted, code reason: 7-Patient Refused. 9-Not Applicable-not attempted and the patient did not perform the activity before the current illness, exacerbation or injury. 10-Not Attempted due to Environmental Limitations-(lack of equipment, weather restraints, etc.). 88-Not Attempted due to Medical Conditions or Safety Concerns. Roll Left to Right (QC): 6 Sit to Lying (QC): 6 Sit to Stand (QC): 4 Chair/Djc-fw-Whcwc Xfer(QC): 4 Car Transfer (QC): 3 Gait Training Does the Patient Walk?: Yes Distance: 100'x2 Walk 10 feet (QC): 4 Walk 50 ft with 2 Turns(QC): 4 Walk 150 ft (QC): 88 Walking 10ft/uneven surface-QC: 3 Gait Persons Needed: 1 Gait Assistive Device: FWW Wheelchair Training Does the Pt Use a Wheelchair?: Yes Distance: 150 Wheel 50 ft with 2 turns (QC): 4 Wheel 150 ft (QC): 4 Type of Wheelchair: Manual Stair Training #of Steps: 0 1 Step (curb) (QC): 88 4 Steps (QC): 88 12 Steps (QC): 88 Balance Picking up an Object (QC): 88 ADL-Treatment Eating (QC): 5 (per clinical judgment) Oral Hygiene (QC): 6 (Per pt report) Shower/Bathe Self (QC): 3 Upper Body Dressing (QC): 5 Lower Body Dressing (QC): 3 On/Off Footwear (QC): 3 Toileting Hygiene (QC): 3 Assessment/Plan Assessment and Plan Assess & Plan/Chief Complaint Assessment: 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
[2022-02-09 07:44] VITALS: BP 151/78
[2022-02-09] MEDS: glyBURIDE 2.5 MG (MICRONASE) TAB PO SCH (08:51)
--- NOTE | 2022-02-09 10:10 | Occupational Ther Daily Note ---
OT Current Status-Daily Note Subjective Progressive prosthetic and orthotics and nursing was in room upon arrival changing his dressing and applying/fitting his prosthetic. He agreed to skilled OT and stated the need to use the restroom. Appearance Pt was left in his w/c with all needs within reach. Mental Status/Objective Patient Orientation: Person, Place, Time, Situation Attachments: IV Pt just received a new ampushield. ADL-Treatment Therapy Code Descriptions/Definitions Functional [place] Measure: 0=Not Assessed/NA 4=Minimal Assistance 1=Total Assistance 5=Supervision or Setup 2=Maximal Assistance 6=Modified [place] 3=Moderate Assistance 7=Complete IndependenceSCALE: Activities may be completed with or without assistive devices. 0-Tkwnswmdup-hjbnxsl completes the activity by him/herself with no assistance from a helper. 5-Set-up or Clean-up Assistance-helper sets up or cleans up; patient completes activity. [place] assists only prior to or following the activity. 4-Supervision or Touching Assistance-helper provides verbal cues and/or touching/steadying and/or contact guard assistance as patient completes activity. Assistance may be provided throughout the activity or intermittently. 3-Partial/Moderate Assistance-helper does LESS THAN HALF the effort. [place] lifts, holds or supports trunk or limbs, but provides less than half the effort. 2-Substantial/Maximal Assistance-helper does MORE THAN HALF the effort. [place] lifts or holds trunk or limbs and provides more than half the effort. 5-Uubxwkfhp-tmrebi does ALL the effort. Patient does none of the effort to complete the activity. Or, the assistance of 2 or more helpers is required for the patient to complete the activity. If activity was not attempted, code reason: 7-Patient Refused. 9-Not Applicable-not attempted and the patient did not perform the activity before the current illness, exacerbation or injury. 10-Not Attempted due to Environmental Limitations-(lack of equipment, weather restraints, etc.). 88-Not Attempted due to Medical Conditions or Safety Concerns. Upper Body Dressing (QC): 5 Lower Body Dressing (QC): 3 On/Off Footwear: 4 (Use of sockaide post education) Toileting Hygiene (QC): 3 Toilet Transfer (QC): 4 Multiple Sit<>Stand transfers were performed throughout session, requiring CGA/SBA. Upon removal of LB clothing, pt found to be incontinent of feces. He was able to clean self, however was unaware of making more of a mess with feces getting all over pt's hands and clothes. Assistance needed for thoroughness and to reduce pt from making more of a mess. Clothing doffed and new clothing donned seated in w/c. He required supervision for threading L LE and R residual limb. CGA when standing for clothing management. Pt requires unilateral UE support during task. Pt received ampushield this date and required education and as sistance to don, further education will be needed. Pt performed grooming tasks of hand washing and oral hygiene seated at sink with supervision. Pt demonstrated poor problem solving and insight/judgement throughout ADLs and requires cues for tasks. 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 Education OT Patient Education: Correct positioning, Instructions don/doff splint/brace, Modified ADL techniques, Progress toward Goal/Update tx plan, Purpose of tx/functional activities, Safety issues, Use of adapted equipment Teaching Recipient: Patient Teaching Methods: Demonstration, Discussion Response to Teaching: Verbalize Understanding, Return Demonstration OT Short Term Goals Short Term Goals Time Frame: Feb 14, 2022 Eatin Oral hygiene: 5 Toileting hygiene: 4 Shower/bathe self: 4 Upper body dressin Lower body dressin Putting on/taking off footwear: 4 OT Retirement Goals Disaster Recovery Manager Goals Time Frame: Feb 21, 2022 Eating (QC): 6 Oral Hygiene (QC): 6 Toileting Hygiene (QC): 6 Shower/Bathe Self (QC): 5 Upper Body Dressing (QC): 6 Lower Body Dressing (QC): 5 On/Off Footwear (QC): 5 Additional Goals: 1-Demonstrate ADL Tasks, 2-Verbalize Understanding, 3- ImproveStrength/Alyssa 1=Demonstrate adherence to instructed precautions during ADL tasks. 2=Patient will verbalize/demonstrate understanding of assistive devices/modifications for ADL. 3=Patient will improve strength/tolerance for activity to enable patient to perform ADL's. OT Education/Plan Problem List/Assessment Assessment: Decreased Activ Tolerance, Decreased Safety Aware, Impaired Cognition, Impaired Coordination, Impaired Funct Balance, Impaired I ADL's, Impaired Self-Care Skills Discharge Recommendations Plan/Recommendations: Continue POC Therapy Discharge Recommendati: Post Acute OT Equpiment Recommendations-D/C: Extended Bath Bench, Sock Aide Treatment Plan/Plan of Care Treatment,Training & Education: Yes Patient would benefit from OT for education, treatment and training to promote independence in ADL's, mobility, safety and/or upper extremity function for ADL's. Plan of Care: ADL Retraining, Cognitive Retraining, Concurrent Therapy, Functional Mobility, Group Exercise/Act as Ind, Orthotic Fitting/Training, UE Funct Exercise/Act, W/C Management Training Treatment Duration: Feb 21, 2022 Frequency: At least 5 of 7 days/Wk (IRF) Estimated Hrs Per Day: 1.5 hours per day (75-90 min/day) Agreement: Yes Rehab Potential: Fair Time/GCodes Start Time: 08:45 Stop Time: 10:15 Total Time Billed (hr/min): 90 Billed Treatment Time 1 Visit ADL x6 Licha Lee OT Feb 09, 2022 10:10
--- NOTE | 2022-02-09 12:03 | Physical Therapy Daily Note ---
PT Daily Note-Current Subjective Pt. agrees to Rx, c/o pain in distal limb at 3/10, increasing with ex Pain Numeric Pain Scale: 3 Location: Right Location Body Site: Calf (distal limb residual) Pain Description: Ache Mental Status Patient Orientation: Normal For Age Attachments: Other-See Comments (distal limb protector device) Transfers SCALE: Activities may be completed with or without assistive devices. 4-Civczmxrrm-bpmvtqi completes the activity by him/herself with no assistance from a helper. 5-Set-up or Clean-up Assistance-helper sets up or cleans up; patient completes activity. [place] assists only prior to or following the activity. 4-Supervision or Touching Assistance-helper provides verbal cues and/or touching/steadying and/or contact guard assistance as patient completes activity. Assistance may be provided throughout the activity or intermittently. 3-Partial/Moderate Assistance-helper does LESS THAN HALF the effort. [place] lifts, holds or supports trunk or limbs, but provides less than half the effort. 2-Substantial/Maximal Assistance-helper does MORE THAN HALF the effort. [place] lifts or holds trunk or limbs and provides more than half the effort. 8-Imxgacpya-xexpan does ALL the effort. Patient does none of the effort to complete the activity. Or, the assistance of 2 or more helpers is required for the patient to complete the activity. If activity was not attempted, code reason: 7-Patient Refused. 9-Not Applicable-not attempted and the patient did not perform the activity before the current illness, exacerbation or injury. 10-Not Attempted due to Environmental Limitations-(lack of equipment, weather restraints, etc.). 88-Not Attempted due to Medical Conditions or Safety Concerns. Roll Left & Right (QC): 6 Sit to Lying (QC): 6 Lying to Sitting/Side of Bed(Q: 6 Sit to Stand (QC): 4 Chair/Ifb-ub-Qjikk Xfer(QC): 4 Weight Bearing Right Lower Extremity: Right Non Weight Bearing Left Lower Extremity: Left Full Weight Bearing Gait Training Does the Patient Walk?: Yes Walk 10 feet (QC): 4 Walk 50 ft with 2 Turns(QC): 4 Walk 150 ft (QC): 4 Gait Persons Needed: 1 Gait Assistive Device: FWW Wheelchair Training Does the Pt Use a Wheelchair?: Yes Wheel 50 ft with 2 turns (QC): 6 Wheel 150 ft (QC): 6 Type of Wheelchair: Manual Exercises Supine Ex: Bridging, Ankle pumps, Quad Set, Rolling, Glut sets, Heel Slides, Knee to chest, Short Arc Quads, Scooting, Straight leg raise, Hip abd/add Supine Reps: 15 Treatments gait, TRFs, chair approach with FWW, amputee therex, nustep, and practiced donning and doffing protector in long sitting Assessment Current Status: Good Progress limb with noted edema after rx, pt agrees to lay down with limb elevated right after he eats lunch PT Digital Strategy Specialist Goals Digital Strategy Specialist Goals PT Snf Goals Time Frame: Feb 26, 2022 Roll Left & Right (QC): 6 Sit to Lying (QC): 6 Lying-Sitting on Side/Bed(QC): 6 Sit to Stand (QC): 6 Chair/Bnn-qx-Zfgfw Xfer(QC): 6 Toilet Transfer (QC): 6 Car Transfer (QC): 6 Does the Patient Walk: Yes Walk 10 feet (QC): 6 Walk 50ft with 2 Turns (QC): 5 Walk 150 ft (QC): 6 Walking 10ft on Uneven Surface: 6 1 Step (curb) (QC): 4 4 Steps (QC): 4 12 Steps (QC): 3 Picking up an Object (QC): 6 Does the Pt use WC or Scooter?: Yes Wheel 50 feet with 2 turns (QC: 6 Type: Manual Wheel 150 feet: 6 Type: Manual PT Plan Treatment/Plan Treatment Plan: Continue Plan of Care Treatment Plan: Bed Mobility, Education, Functional Activity Alyssa, Functional Strength, Group Therapy, Gait, Safety, Therapeutic Exercise, Transfers Treatment Duration: Mar 05, 2022 Frequency: At least 5 of 7 days/Wk (IRF) Estimated Hrs Per Day: 1.5 hours per day Patient and/or Family Agrees t: Yes Safety Risks/Education Patient Education: Gait Training, Transfer Techniques, Correct Positioning, W/C Management, Reviewed Don/Doff Brace, Disease Process, Safety Issues Teaching Recipient: Patient Teaching Methods: Demonstration, Discussion Response to Teaching: Verbalize Understanding, Return Demonstration, Reinforcement Needed Time/GCodes Time In: 1100 Time Out: 1200 Total Billed Treatment Time: 60 Total Billed Treatment 1,GT20m,WC 10m,EX30m CONRAD MORALES DIESEL TRAILER MECHANIC Feb 09, 2022 12:03
[2022-02-09] MEDS: ENOXAPARIN 40 MG/0.4 ML (LOVENOX) SYR SQ SCH (12:15)
[2022-02-09] MEDS: polyethylene glycoL POWDER 17 GM (MIRALAX) PACK PO SCH ×2 (12:16→21:00)
[2022-02-09] MEDS: SENNA W/DOCUSATE (SENOKOT S) TABLET PO SCH ×2 (12:16→21:00)
[2022-02-09] MEDS: DOCUSATE SODIUM 100 MG (COLACE) CAP PO SCH ×2 (12:16→21:00)
[2022-02-09] MEDS: TIMOLOL MALEATE 0.5% 5 ML (TIMOPTIC) BTL OU SCH (12:17)
--- NOTE | 2022-02-09 13:06 | Physical Therapy Daily Note ---
PT Daily Note-Current Subjective Pt. p in w/c, agrees to lay down after Rx with residual limb elevated but states he really enjoys being up in the w/c wheeling around Pain Numeric Pain Scale: 3 Location: Right Location Body Site: Calf (residual limb) Pain Description: Ache Mental Status Patient Orientation: Normal For Age Attachments: Other-See Comments (limb protector) Transfers SCALE: Activities may be completed with or without assistive devices. 3-Gdcgyuvxvj-dnsgokj completes the activity by him/herself with no assistance from a helper. 5-Set-up or Clean-up Assistance-helper sets up or cleans up; patient completes activity. [place] assists only prior to or following the activity. 4-Supervision or Touching Assistance-helper provides verbal cues and/or touching/steadying and/or contact guard assistance as patient completes activity. Assistance may be provided throughout the activity or intermittently. 3-Partial/Moderate Assistance-helper does LESS THAN HALF the effort. [place] lifts, holds or supports trunk or limbs, but provides less than half the effort. 2-Substantial/Maximal Assistance-helper does MORE THAN HALF the effort. [place] lifts or holds trunk or limbs and provides more than half the effort. 9-Jioawuhcx-qmudtg does ALL the effort. Patient does none of the effort to complete the activity. Or, the assistance of 2 or more helpers is required for the patient to complete the activity. If activity was not attempted, code reason: 7-Patient Refused. 9-Not Applicable-not attempted and the patient did not perform the activity before the current illness, exacerbation or injury. 10-Not Attempted due to Environmental Limitations-(lack of equipment, weather restraints, etc.). 88-Not Attempted due to Medical Conditions or Safety Concerns. pt. did sit to stands and SPTs and short gait w/c to bed practicing safe approach and turn to get to bed. Weight Bearing Right Lower Extremity: Right Non Weight Bearing Left Lower Extremity: Left Full Weight Bearing Gait Training Does the Patient Walk?: Yes Gait Assistive Device: FWW 10ft CGA no LOB, good use of AD Wheelchair Training Does the Pt Use a Wheelchair?: Yes Type of Wheelchair: Manual turns and manages about his room very well, indep with braking Exercises Supine Ex: Ankle pumps, Quad Set, Rolling, Glut sets, Heel Slides, Straight leg raise Supine Reps: 20 Treatments as above , then pt. in bed with RLE elevated on pillow, protector still insitu Assessment Current Status: Good Progress PT Nursing Home Goals Nursing Home Goals PT Director Of Dietary Goals Time Frame: Feb 26, 2022 Roll Left & Right (QC): 6 Sit to Lying (QC): 6 Lying-Sitting on Side/Bed(QC): 6 Sit to Stand (QC): 6 Chair/Szr-xk-Gkblw Xfer(QC): 6 Toilet Transfer (QC): 6 Car Transfer (QC): 6 Does the Patient Walk: Yes Walk 10 feet (QC): 6 Walk 50ft with 2 Turns (QC): 5 Walk 150 ft (QC): 6 Walking 10ft on Uneven Surface: 6 1 Step (curb) (QC): 4 4 Steps (QC): 4 12 Steps (QC): 3 Picking up an Object (QC): 6 Does the Pt use WC or Scooter?: Yes Wheel 50 feet with 2 turns (QC: 6 Type: Manual Wheel 150 feet: 6 Type: Manual PT Plan Treatment/Plan Treatment Plan: Continue Plan of Care Treatment Plan: Bed Mobility, Education, Functional Activity Alyssa, Functional Strength, Group Therapy, Gait, Safety, Therapeutic Exercise, Transfers Treatment Duration: Mar 05, 2022 Frequency: At least 5 of 7 days/Wk (IRF) Estimated Hrs Per Day: 1.5 hours per day Patient and/or Family Agrees t: Yes Safety Risks/Education Patient Education: Gait Training, Transfer Techniques, Correct Positioning, W/C Management, Safety Issues Teaching Recipient: Patient Teaching Methods: Demonstration, Discussion Response to Teaching: Verbalize Understanding, Return Demonstration, Reinforcement Needed Time/GCodes Time In: 1240 Time Out: 1310 Total Billed Treatment Time: 30 Total Billed Treatment 1,FA15m,EX15m CONRAD MORALES PHARMACEUTICAL ENGINEER Feb 09, 2022 13:06
--- NOTE | 2022-02-09 14:08 | Physical Therapy Progress Note ---
Therapy Progress Note This pt. has a mobility limitation that significantly impairs his ability to do several mobility related ADLs in the home. The patient will hopefully gain further safety and mobility in the future but at this time he is not safe or independent with a FWW. The patient states he has enough room inside his home for a wheelchair. The patient can safely use a wheelchair with the assist of a caregiver and close to being indep on his own KAVON Roper LEE A PTA Feb 09, 2022 14:08
[2022-02-09] MEDS: MICONAZOLE 2% POWDER (DESENEX AF) 90 GM TOP SCH ×2 (19:43→21:05)
[2022-02-09 19:51] VITALS: BP 161/85
[2022-02-09] MEDS: LATANOPROST 0.005% (XALATAN) OPHTH SOLN 2.5 ML OU SCH (21:05)
[2022-02-10] MEDS: inSUlin ASPART (NovoLOG) 1 UNIT/0.01 ML (CHARGE PER UNIT) SC SCH ×4 (05:35→21:01)
--- NOTE | 2022-02-10 06:10 | PM&R Progress Note ---
Subjective HPI/CC On Admission Date Seen by Provider: Feb 10, 2022 Time Seen by Provider: 11:00 Subjective/Events-last exam 02/10/2022: Patient doing very well Transitioning off insulin onto pill form of medication Doing well overall 02/09/2022: Patient doing well Sugars reviewed No pain reported 02/08/2022: Doing well Improved status Sugars improved Will transition to OHA soon 02/07/2022: Doing well Reviewed sugars Talked to him about transitioning to PO for DM management since he was only on Metformin in past Eye drops needs to be restarted after nurse calls pharmacy for exact type and dosing 02/06/2022: Patient tolerating pain well Reviewed meds Reviewed glucose Adjusting insulin Review of Systems General: Fatigue, Malaise Musculoskeletal: leg pain Objective Exam Vital Signs Vital Signs Date Time Temp Pulse Resp B/P (MAP) Pulse Ox O2 Delivery O2 Flow Rate FiO2 02/10/22 21:00 98 Room Air 02/10/22 19:34 37.2 94 20 165/79 (107) Capillary Refill : General Appearance: No Apparent Distress, WD/WN HEENT: PERRL/EOMI, Normal ENT Inspection, Pharynx Normal Neck: Full Range of Motion, Normal Inspection, Non Tender, Supple, Carotid Bruit Respiratory: Chest Non Tender, Lungs Clear, Normal Breath Sounds, No Accessory Muscle Use, No Respiratory Distress Cardiovascular: Regular Rate, Rhythm, No Edema, No Gallop, No JVD, No Murmur, Normal Peripheral Pulses Gastrointestinal: Normal Bowel Sounds, No Organomegaly, No Pulsatile Mass, Non Tender, Soft Back: Normal Inspection, No CVA Tenderness, No Vertebral Tenderness Extremity: Normal Capillary Refill, Normal Inspection, Normal Range of Motion (right amputaiton BK), Non Tender, No Calf Tenderness, No Pedal Edema Neurologic/Psychiatric: Alert, Oriented x3, No Motor/Sensory Deficits, Normal Mood/Affect, artificial breeding distributor II-XII Norm as Tested, Motor Weakness (right leg BKA) Skin: Normal Color, Warm/Dry Lymphatic: No Adenopathy Results/Procedures Lab Patient resulted labs reviewed. FIM Transfers Therapy Code Descriptions/Definitions Functional [place] Measure: 0=Not Assessed/NA 4=Minimal Assistance 1=Total Assistance 5=Supervision or Setup 2=Maximal Assistance 6=Modified [place] 3=Moderate Assistance 7=Complete IndependenceSCALE: Activities may be completed with or without assistive devices. 3-Cgqvrpveap-brceahb completes the activity by him/herself with no assistance from a helper. 5-Set-up or Clean-up Assistance-helper sets up or cleans up; patient completes activity. [place] assists only prior to or following the activity. 4-Supervision or Touching Assistance-helper provides verbal cues and/or touchin g/steadying and/or contact guard assistance as patient completes activity. Assistance may be provided throughout the activity or intermittently. 3-Partial/Moderate Assistance-helper does LESS THAN HALF the effort. [place] lifts, holds or supports trunk or limbs, but provides less than half the effort. 2-Substantial/Maximal Assistance-helper does MORE THAN HALF the effort. [place] lifts or holds trunk or limbs and provides more than half the effort. 9-Rvxjqsusp-gaffxk does ALL the effort. Patient does none of the effort to complete the activity. Or, the assistance of 2 or more helpers is required for the patient to complete the activity. If activity was not attempted, code reason: 7-Patient Refused. 9-Not Applicable-not attempted and the patient did not perform the activity before the current illness, exacerbation or injury. 10-Not Attempted due to Environmental Limitations-(lack of equipment, weather restraints, etc.). 88-Not Attempted due to Medical Conditions or Safety Concerns. Roll Left to Right (QC): 6 Sit to Lying (QC): 6 Sit to Stand (QC): 4 Chair/Qnx-vp-Kbqzn Xfer(QC): 4 Car Transfer (QC): 3 Gait Training Does the Patient Walk?: Yes Distance: 100'x2 Walk 10 feet (QC): 4 Walk 50 ft with 2 Turns(QC): 4 Walk 150 ft (QC): 4 Walking 10ft/uneven surface-QC: 3 Gait Persons Needed: 1 Gait Assistive Device: FWW Wheelchair Training Does the Pt Use a Wheelchair?: Yes Distance: 150 Wheel 50 ft with 2 turns (QC): 6 Wheel 150 ft (QC): 6 Type of Wheelchair: Manual Stair Training #of Steps: 0 1 Step (curb) (QC): 88 4 Steps (QC): 88 12 Steps (QC): 88 Balance Picking up an Object (QC): 88 ADL-Treatment Eating (QC): 5 (per clinical judgment) Oral Hygiene (QC): 6 (Per pt report) Shower/Bathe Self (QC): 3 Upper Body Dressing (QC): 5 Lower Body Dressing (QC): 3 On/Off Footwear (QC): 4 (Use of sockaide post education) Toileting Hygiene (QC): 3 Toilet Transfer (QC): 4 Assessment/Plan Assessment and Plan Assess & Plan/Chief Complaint Assessment: 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
[2022-02-10 07:55] VITALS: BP 158/81
--- NOTE | 2022-02-10 08:51 | Occupational Ther Daily Note ---
OT Current Status-Daily Note Subjective Pt in bed upon arrival. He reported that he had an accident with the urinal in bed. But was unaware that he had a BM while in bed. He stated that he can't feel himself having a BM and only sometimes can feel urination coming on. Appearance Pt left in w/c with all needs within reach. Mental Status/Objective Patient Orientation: Person, Place, Time, Situation ADL-Treatment Therapy Code Descriptions/Definitions Functional [place] Measure: 0=Not Assessed/NA 4=Minimal Assistance 1=Total Assistance 5=Supervision or Setup 2=Maximal Assistance 6=Modified [place] 3=Moderate Assistance 7=Complete IndependenceSCALE: Activities may be completed with or without assistive devices. 8-Qpqlphjqvq-bwpwcnd completes the activity by him/herself with no assistance from a helper. 5-Set-up or Clean-up Assistance-helper sets up or cleans up; patient completes activity. [place] assists only prior to or following the activity. 4-Supervision or Touching Assistance-helper provides verbal cues and/or touching/steadying and/or contact guard assistance as patient completes activity. Assistance may be provided throughout the activity or intermittently. 3-Partial/Moderate Assistance-helper does LESS THAN HALF the effort. [place] lifts, holds or supports trunk or limbs, but provides less than half the effort. 2-Substantial/Maximal Assistance-helper does MORE THAN HALF the effort. [place] lifts or holds trunk or limbs and provides more than half the effort. 3-Urbehxnbn-lyweuw does ALL the effort. Patient does none of the effort to complete the activity. Or, the assistance of 2 or more helpers is required for the patient to complete the activity. If activity was not attempted, code reason: 7-Patient Refused. 9-Not Applicable-not attempted and the patient did not perform the activity bef ore the current illness, exacerbation or injury. 10-Not Attempted due to Environmental Limitations-(lack of equipment, weather r estraints, etc.). 88-Not Attempted due to Medical Conditions or Safety Concerns. Oral Hygiene (QC): 6 Shower/Bathe Self (QC): 5 Upper Body Dressing (QC): 5 Lower Body Dressing (QC): 4 On/Off Footwear: 3 (Mod a to don [place] and stump development and housing director) Toileting Hygiene (QC): 3 Toilet Transfer (QC): 4 Sit<>stand: supervision. Pt doffed LB dressing on bed with supervision by leaning side to side. Due to fecal incontinence, iva care completed at bed level; dependent to clean. He ambulated with walker to bathroom and was continent for another BM in the toilet. Min-mod assist for thoroughness. He doffed shirt sitting with supervision. OT issued and instructed pt on use of LHS to enhance his independence when washing L foot. Set up for all other shower tasks. He was able to dry himself, apply deodorant and don shirt with set up. He transferred to w/c and donned brief and pants with CGA for safety when reaching down, then stood to pull them up. He propelled to sink to perform grooming tasks of brushing teeth and combing hair. He donned sock with sock aide and shoe with supervision. He propelled himself to the laundry room to complete laundry task with min-mod verbal cues and min assist. Coming back into the room, pt was verbally and visually educated how to put his stump development and housing director on the donning tube, he was able to complete this task with extra time. Nursing came in and reapplied his dressing on his stump and therapist helped pt to don prosthetic. Education OT Patient Education: Correct positioning, Energy conservation, Instructions don/doff splint/brace, Modified ADL techniques, Progress toward Goal/Update tx plan, Purpose of tx/functional activities, Transfer techniques, Use of adapted equipment, W/C management Teaching Recipient: Patient Teaching Methods: Demonstration, Discussion Response to Teaching: Verbalize Understanding, Return Demonstration, Reinforcement Needed OT Short Term Goals Short Term Goals Time Frame: Feb 14, 2022 Eatin Oral hygiene: 5 Toileting hygiene: 4 Shower/bathe self: 4 Upper body dressin Lower body dressin Putting on/taking off footwear: 4 OT Public Service Officer Goals Skilled Nursing Goals Time Frame: Feb 21, 2022 Eating (QC): 6 Oral Hygiene (QC): 6 Toileting Hygiene (QC): 6 Shower/Bathe Self (QC): 5 Upper Body Dressing (QC): 6 Lower Body Dressing (QC): 5 On/Off Footwear (QC): 5 Additional Goals: 1-Demonstrate ADL Tasks, 2-Verbalize Understanding, 3- ImproveStrength/Alyssa 1=Demonstrate adherence to instructed precautions during ADL tasks. 2=Patient will verbalize/demonstrate understanding of assistive devices/modifications for ADL. 3=Patient will improve strength/tolerance for activity to enable patient to perform ADL's. OT Education/Plan Problem List/Assessment Assessment: Decreased Activ Tolerance, Decreased Safety Aware, Decreased UE Strength, Impaired Cognition, Impaired Funct Balance, Impaired I ADL's, Impaired Self-Care Skills Discharge Recommendations Plan/Recommendations: Continue POC Therapy Discharge Recommendati: Post Acute OT Treatment Plan/Plan of Care Treatment,Training & Education: Yes Patient would benefit from OT for education, treatment and training to promote independence in ADL's, mobility, safety and/or upper extremity function for ADL's. Plan of Care: ADL Retraining, Cognitive Retraining, Concurrent Therapy, Functional Mobility, Group Exercise/Act as Ind, Orthotic Fitting/Training, UE Funct Exercise/Act, W/C Management Training Treatment Duration: Feb 21, 2022 Frequency: At least 5 of 7 days/Wk (IRF) Estimated Hrs Per Day: 1.5 hours per day (75-90 min/day) Agreement: Yes Rehab Potential: Fair Time/GCodes Start Time: 07:30 Stop Time: 09:00 Total Time Billed (hr/min): 90 Billed Treatment Time 1 visit ADL x6 Licha Lee OT Feb 10, 2022 08:50
[2022-02-10] MEDS: glyBURIDE 2.5 MG (MICRONASE) TAB PO SCH (09:09)
[2022-02-10] MEDS: TIMOLOL MALEATE 0.5% 5 ML (TIMOPTIC) BTL OU SCH (09:10)
[2022-02-10] MEDS: SENNA W/DOCUSATE (SENOKOT S) TABLET PO SCH ×2 (09:52→21:05)
[2022-02-10] MEDS: polyethylene glycoL POWDER 17 GM (MIRALAX) PACK PO SCH ×2 (09:52→21:05)
[2022-02-10] MEDS: DOCUSATE SODIUM 100 MG (COLACE) CAP PO SCH ×2 (09:52→21:05)
[2022-02-10] MEDS: MICONAZOLE 2% POWDER (DESENEX AF) 90 GM TOP SCH ×2 (09:53→21:02)
--- NOTE | 2022-02-10 10:04 | Physical Therapy Daily Note ---
PT Daily Note-Current Subjective Patient in WC pre tx, agrees to PT, has 2-3/10 pain in right residual limb. Appearance Patient in WC at bedside post tx with nurse call, phone, tray, all needs met. Mental Status Patient Orientation: Person, Place, Situation right residual limb protector Transfers SCALE: Activities may be completed with or without assistive devices. 1-Gvgxycwpwq-paazsvz completes the activity by him/herself with no assistance from a helper. 5-Set-up or Clean-up Assistance-helper sets up or cleans up; patient completes activity. [place] assists only prior to or following the activity. 4-Supervision or Touching Assistance-helper provides verbal cues and/or touching/steadying and/or contact guard assistance as patient completes activity. Assistance may be provided throughout the activity or intermittently. 3-Partial/Moderate Assistance-helper does LESS THAN HALF the effort. [place] lifts, holds or supports trunk or limbs, but provides less than half the effort. 2-Substantial/Maximal Assistance-helper does MORE THAN HALF the effort. [place] lifts or holds trunk or limbs and provides more than half the effort. 1-Utzrwrecj-oyaodp does ALL the effort. Patient does none of the effort to complete the activity. Or, the assistance of 2 or more helpers is required for the patient to complete the activity. If activity was not attempted, code reason: 7-Patient Refused. 9-Not Applicable-not attempted and the patient did not perform the activity before the current illness, exacerbation or injury. 10-Not Attempted due to Environmental Limitations-(lack of equipment, weather restraints, etc.). 88-Not Attempted due to Medical Conditions or Safety Concerns. Roll Left & Right (QC): 6 Sit to Lying (QC): 6 Lying to Sitting/Side of Bed(Q: 6 Sit to Stand (QC): 4 Chair/Kdi-ja-Zigjm Xfer(QC): 4 Weight Bearing Right Lower Extremity: Right Non Weight Bearing Left Lower Extremity: Left Full Weight Bearing Gait Training Distance: 120'x2 Walk 10 feet (QC): 4 Walk 50 ft with 2 Turns(QC): 4 Gait Persons Needed: 1 Gait Assistive Device: FWW SBA, improving balance Exercises Supine Ex: Bridging (using ball), Quad Set, Lower trunk rotation (using ball), Straight leg raise, Hip abd/add Supine Reps: 20 (all RLE except for bridging and LTR) sit to stand 2 sets of 10,prone hip extension stretch NuStep Minutes: 15 NuStep Workload: 5 (RLE not used) Treatments bed mobility and transfers, ambulation, stretching, strengthening Assessment Current Status: Fair Progress improving balance and ambulation PT Executive Vice President And Chief Operating Officer Goals Retirement Goals PT Executive Vice President And Chief Operating Officer Goals Time Frame: Feb 26, 2022 Roll Left & Right (QC): 6 Sit to Lying (QC): 6 Lying-Sitting on Side/Bed(QC): 6 Sit to Stand (QC): 6 Chair/Tyy-vg-Hhrzr Xfer(QC): 6 Toilet Transfer (QC): 6 Car Transfer (QC): 6 Does the Patient Walk: Yes Walk 10 feet (QC): 6 Walk 50ft with 2 Turns (QC): 5 Walk 150 ft (QC): 6 Walking 10ft on Uneven Surface: 6 1 Step (curb) (QC): 4 4 Steps (QC): 4 12 Steps (QC): 3 Picking up an Object (QC): 6 Does the Pt use WC or Scooter?: Yes Wheel 50 feet with 2 turns (QC: 6 Type: Manual Wheel 150 feet: 6 Type: Manual PT Plan Problem List Problem List: Activity Tolerance, Functional Strength, Safety, Balance, Gait, Transfer, Bed Mobility, ROM Treatment/Plan Treatment Plan: Continue Plan of Care Treatment Plan: Bed Mobility, Education, Functional Activity Alyssa, Functional Strength, Group Therapy, Gait, Safety, Therapeutic Exercise, Transfers Treatment Duration: Mar 05, 2022 Frequency: At least 5 of 7 days/Wk (IRF) Estimated Hrs Per Day: 1.5 hours per day Patient and/or Family Agrees t: Yes Safety Risks/Education Patient Education: Gait Training, Transfer Techniques, Correct Positioning, Safety Issues Teaching Recipient: Patient Teaching Methods: Demonstration, Discussion Response to Teaching: Reinforcement Needed Time/GCodes Time In: 15 Time Out: 1015 Total Billed Treatment Time: 60 Total Billed Treatment 1 visit FA 15' EX 45' YVETTE LUCIO PT Feb 10, 2022 10:04
--- NOTE | 2022-02-10 11:29 | Physical Therapy Daily Note ---
PT Daily Note-Current Subjective Pt. agrees to Rx. States his pain is better and he feels his knee is straighter . Pain Location: No Pain Reported Mental Status Patient Orientation: Normal For Age Attachments: Other-See Comments (residual limb protector/ extension device) Transfers SCALE: Activities may be completed with or without assistive devices. 7-Qpsaakbnwk-nvcfphb completes the activity by him/herself with no assistance from a helper. 5-Set-up or Clean-up Assistance-helper sets up or cleans up; patient completes activity. [place] assists only prior to or following the activity. 4-Supervision or Touching Assistance-helper provides verbal cues and/or touching/steadying and/or contact guard assistance as patient completes activity. Assistance may be provided throughout the activity or intermittently. 3-Partial/Moderate Assistance-helper does LESS THAN HALF the effort. [place] lifts, holds or supports trunk or limbs, but provides less than half the effort. 2-Substantial/Maximal Assistance-helper does MORE THAN HALF the effort. [place] lifts or holds trunk or limbs and provides more than half the effort. 9-Txopenzvi-nyvxzf does ALL the effort. Patient does none of the effort to complete the activity. Or, the assistance of 2 or more helpers is required for the patient to complete the activity. If activity was not attempted, code reason: 7-Patient Refused. 9-Not Applicable-not attempted and the patient did not perform the activity before the current illness, exacerbation or injury. 10-Not Attempted due to Environmental Limitations-(lack of equipment, weather restraints, etc.). 88-Not Attempted due to Medical Conditions or Safety Concerns. Roll Left & Right (QC): 6 Sit to Lying (QC): 6 Lying to Sitting/Side of Bed(Q: 6 Sit to Stand (QC): 4 Chair/Bqo-ox-[place] Xfer(QC): 4 Weight Bearing Right Lower Extremity: Right Non Weight Bearing Left Lower Extremity: Left Full Weight Bearing Gait Training Does the Patient Walk?: Yes Gait Assistive Device: FWW 100ft, 50 ft CGA no LOB, good control Wheelchair Training Does the Pt Use a Wheelchair?: Yes Wheel 150 ft (QC): 6 Type of Wheelchair: Manual Exercises Supine Ex: Bridging, Ankle pumps, Quad Set, Rolling, Glut sets, Heel Slides, Short Arc Quads, Scooting, Straight leg raise, Hip abd/add Supine Reps: 15 side and prone amputee ex as well as stretching in prone for hip extension Treatments gait, TRFs, w/c mob, therex for stretch and strengthening Assessment Current Status: Good Progress PT Residential Goals Instrumentation Tech Goals PT Residential Goals Time Frame: Feb 26, 2022 Roll Left & Right (QC): 6 Sit to Lying (QC): 6 Lying-Sitting on Side/Bed(QC): 6 Sit to Stand (QC): 6 Chair/Drx-vt-Yhgrw Xfer(QC): 6 Toilet Transfer (QC): 6 Car Transfer (QC): 6 Does the Patient Walk: Yes Walk 10 feet (QC): 6 Walk 50ft with 2 Turns (QC): 5 Walk 150 ft (QC): 6 Walking 10ft on Uneven Surface: 6 1 Step (curb) (QC): 4 4 Steps (QC): 4 12 Steps (QC): 3 Picking up an Object (QC): 6 Does the Pt use WC or Scooter?: Yes Wheel 50 feet with 2 turns (QC: 6 Type: Manual Wheel 150 feet: 6 Type: Manual PT Plan Treatment/Plan Treatment Plan: Continue Plan of Care Treatment Plan: Bed Mobility, Education, Functional Activity Alyssa, Functional Strength, Group Therapy, Gait, Safety, Therapeutic Exercise, Transfers Treatment Duration: Mar 05, 2022 Frequency: At least 5 of 7 days/Wk (IRF) Estimated Hrs Per Day: 1.5 hours per day Patient and/or Family Agrees t: Yes Safety Risks/Education Patient Education: Gait Training, Transfer Techniques, Correct Positioning, W/C Management, Disease Process, Safety Issues Teaching Recipient: Patient Teaching Methods: Demonstration, Discussion Response to Teaching: Verbalize Understanding, Return Demonstration, Reinforcement Needed Time/GCodes Time In: 1100 Time Out: 1130 Total Billed Treatment Time: 30 Total Billed Treatment 1,FA10m,EX20m CONRAD MORALES PTA Feb 10, 2022 11:29
[2022-02-10] MEDS: ENOXAPARIN 40 MG/0.4 ML (LOVENOX) SYR SQ SCH (12:28)
[2022-02-10 19:34] VITALS: BP 165/79
[2022-02-10] MEDS: LATANOPROST 0.005% (XALATAN) OPHTH SOLN 2.5 ML OU SCH (21:01)
[2022-02-11] MEDS: inSUlin ASPART (NovoLOG) 1 UNIT/0.01 ML (CHARGE PER UNIT) SC SCH ×4 (05:47→20:30)
[2022-02-11 07:20] VITALS: BP 142/72
[2022-02-11] MEDS: glyBURIDE 2.5 MG (MICRONASE) TAB PO SCH (08:45)
--- NOTE | 2022-02-11 08:50 | Occupational Ther Daily Note ---
OT Current Status-Daily Note Subjective Pt denies pain but does report poor sleep. Appearance Pt left sitting in w/c, all needs within reach at OT departure. Mental Status/Objective Patient Orientation: Person, Place, Situation [facility] ADL-Treatment Therapy Code Descriptions/Definitions Functional [place] Measure: 0=Not Assessed/NA 4=Minimal Assistance 1=Total Assistance 5=Supervision or Setup 2=Maximal Assistance 6=Modified [place] 3=Moderate Assistance 7=Complete IndependenceSCALE: Activities may be completed with or without assistive devices. 6-Qczdnyjsut-rtxdwqq completes the activity by him/herself with no assistance from a helper. 5-Set-up or Clean-up Assistance-helper sets up or cleans up; patient completes activity. [place] assists only prior to or following the activity. 4-Supervision or Touching Assistance-helper provides verbal cues and/or touching/steadying and/or contact guard assistance as patient completes activity. Assistance may be provided throughout the activity or intermittently. 3-Partial/Moderate Assistance-helper does LESS THAN HALF the effort. [place] lifts, holds or supports trunk or limbs, but provides less than half the effort. 2-Substantial/Maximal Assistance-helper does MORE THAN HALF the effort. [place] lifts or holds trunk or limbs and provides more than half the effort. 9-Ipralqfwu-zongms does ALL the effort. Patient does none of the effort to complete the activity. Or, the assistance of 2 or more helpers is required for the patient to complete the activity. If activity was not attempted, code reason: 7-Patient Refused. 9-Not Applicable-not attempted and the patient did not perform the activity before the current illness, exacerbation or injury. 10-Not Attempted due to Environmental Limitations-(lack of equipment, weather restraints, etc.). 88-Not Attempted due to Medical Conditions or Safety Concerns. Eating (QC): 6 Oral Hygiene (QC): 6 Shower/Bathe Self (QC): 4 Upper Body Dressing (QC): 6 Lower Body Dressing (QC): 4 On/Off Footwear: 4 Toileting Hygiene (QC): 4 Toilet Transfer (QC): 6 Pt continues to be incontinent of both bowel and bladder in the mornings. He reports the urine is more from spilling the urinal. Education on hygiene and skin integrity by calling for assistance if spillage occurs as well as wearing a gown (vs shorts and brief) at bedtime. Dependent for iva care while sidelying in bed. Pt also continent of bowels on toilet. Able to perform iva care in standing with supervision for safety. Shower performed; 100% completed in sitting. Cues for thoroughness when washing buttocks. Good recall on use of LHS to improve independence/safety when washing foot. Clothing donned seated in w/c. Pt able to thread LLE and residual limb without assistance. Supervision for safety as he stood to manage clothing up to waist. Grooming tasks performed independently at w/c level. Mod a to don stump health insurance agent and [place], yet pt continues to exhibit improved tolerance and independence with task. Set up assist when donning L sock/shoe. Education OT Patient Education: Correct positioning, Disease process, Energy conservation, Modified ADL techniques, Progress toward Goal/Update tx plan, Purpose of tx/functional activities, Reviewed precautions, Rehab process, Safety issues, Transfer techniques, W/C management Teaching Recipient: Patient Teaching Methods: Demonstration, Discussion Response to Teaching: Verbalize Understanding, Return Demonstration, Reinforcement Needed OT Short Term Goals Short Term Goals Time Frame: Feb 14, 2022 Eatin Oral hygiene: 5 Toileting hygiene: 4 Shower/bathe self: 4 Upper body dressin Lower body dressin Putting on/taking off footwear: 4 OT Medical Instrument Technician Goals Medical Instrument Technician Goals Time Frame: Feb 21, 2022 Eating (QC): 6 Oral Hygiene (QC): 6 Toileting Hygiene (QC): 6 Shower/Bathe Self (QC): 5 Upper Body Dressing (QC): 6 Lower Body Dressing (QC): 5 On/Off Footwear (QC): 5 Additional Goals: 1-Demonstrate ADL Tasks, 2-Verbalize Understanding, 3- ImproveStrength/Alyssa 1=Demonstrate adherence to instructed precautions during ADL tasks. 2=Patient will verbalize/demonstrate understanding of assistive devices/modifications for ADL. 3=Patient will improve strength/tolerance for activity to enable patient to perform ADL's. OT Education/Plan Problem List/Assessment Assessment: Decreased Safety Aware, Impaired Cognition, Impaired Funct Balance, Impaired I ADL's, Impaired Self-Care Skills Discharge Recommendations Plan/Recommendations: Continue POC Therapy Discharge Recommendati: Post Acute OT Equpiment Recommendations-D/C: Bath Chair Treatment Plan/Plan of Care Treatment,Training & Education: Yes Patient would benefit from OT for education, treatment and training to promote independence in ADL's, mobility, safety and/or upper extremity function for ADL's. Plan of Care: ADL Retraining, Cognitive Retraining, Concurrent Therapy, Functional Mobility, Group Exercise/Act as Ind, Orthotic Fitting/Training, UE Funct Exercise/Act, W/C Management Training Treatment Duration: Feb 21, 2022 Frequency: At least 5 of 7 days/Wk (IRF) Estimated Hrs Per Day: 1.5 hours per day (75-90 min/day) Agreement: Yes Rehab Potential: Fair Time/GCodes Start Time: 07:30 Stop Time: 09:00 Total Time Billed (hr/min): 90 Billed Treatment Time 1 visit ADL x6 Licha Lee OT Feb 11, 2022 08:50
--- NOTE | 2022-02-11 09:53 | Physical Therapy Daily Note ---
PT Daily Note-Current Subjective Patient in WC pre tx, agrees to PT, has no complaints of pain at rest. Appearance Patient in WC at bedside post tx with nurse call, phone, tray, all needs met. Mental Status Patient Orientation: Person, Place, Situation Transfers SCALE: Activities may be completed with or without assistive devices. 9-Nwqzfptvsp-agjdofz completes the activity by him/herself with no assistance from a helper. 5-Set-up or Clean-up Assistance-helper sets up or cleans up; patient completes activity. [place] assists only prior to or following the activity. 4-Supervision or Touching Assistance-helper provides verbal cues and/or touching/steadying and/or contact guard assistance as patient completes activity. Assistance may be provided throughout the activity or intermittently. 3-Partial/Moderate Assistance-helper does LESS THAN HALF the effort. [place] lifts, holds or supports trunk or limbs, but provides less than half the effort. 2-Substantial/Maximal Assistance-helper does MORE THAN HALF the effort. [place] lifts or holds trunk or limbs and provides more than half the effort. 5-Llqynqnro-fhujcc does ALL the effort. Patient does none of the effort to complete the activity. Or, the assistance of 2 or more helpers is required for the patient to complete the activity. If activity was not attempted, code reason: 7-Patient Refused. 9-Not Applicable-not attempted and the patient did not perform the activity before the current illness, exacerbation or injury. 10-Not Attempted due to Environmental Limitations-(lack of equipment, weather restraints, etc.). 88-Not Attempted due to Medical Conditions or Safety Concerns. Sit to Stand (QC): 4 Chair/Avx-zo-Jubht Xfer(QC): 4 SBA Weight Bearing Right Lower Extremity: Right Non Weight Bearing Left Lower Extremity: Left Full Weight Bearing Gait Training Distance: 120'x2 Walk 10 feet (QC): 4 Walk 50 ft with 2 Turns(QC): 4 Gait Persons Needed: 1 Gait Assistive Device: FWW SBA, better balance and stability Exercises Standing: Heel/toe raises (LLE), 3 way Ex=Flex, Abd, Ext (RLE), Mini squats (LLE), Step-ups (3 sets of 5) NuStep Minutes: 15 NuStep Workload: 5 Treatments transfers, ambulation, functional strengthening Assessment Current Status: Fair Progress improving general mobility and strength PT Mcfp Goals Rfid Systems Architect Goals PT Rfid Systems Architect Goals Time Frame: Feb 26, 2022 Roll Left & Right (QC): 6 Sit to Lying (QC): 6 Lying-Sitting on Side/Bed(QC): 6 Sit to Stand (QC): 6 Chair/Tfh-pe-Ajlmq Xfer(QC): 6 Toilet Transfer (QC): 6 Car Transfer (QC): 6 Does the Patient Walk: Yes Walk 10 feet (QC): 6 Walk 50ft with 2 Turns (QC): 5 Walk 150 ft (QC): 6 Walking 10ft on Uneven Surface: 6 1 Step (curb) (QC): 4 4 Steps (QC): 4 12 Steps (QC): 3 Picking up an Object (QC): 6 Does the Pt use WC or Scooter?: Yes Wheel 50 feet with 2 turns (QC: 6 Type: Manual Wheel 150 feet: 6 Type: Manual PT Plan Problem List Problem List: Activity Tolerance, Functional Strength, Safety, Balance, Gait, Transfer, Bed Mobility, ROM Treatment/Plan Treatment Plan: Continue Plan of Care Treatment Plan: Bed Mobility, Education, Functional Activity Alyssa, Functional Strength, Group Therapy, Gait, Safety, Therapeutic Exercise, Transfers Treatment Duration: Mar 05, 2022 Frequency: At least 5 of 7 days/Wk (IRF) Estimated Hrs Per Day: 1.5 hours per day Patient and/or Family Agrees t: Yes Safety Risks/Education Patient Education: Gait Training, Transfer Techniques, Correct Positioning, Safety Issues Teaching Recipient: Patient Teaching Methods: Demonstration, Discussion Response to Teaching: Reinforcement Needed Time/GCodes Time In: 0900 Time Out: 1000 Total Billed Treatment Time: 60 Total Billed Treatment 1 visit EX 30' FA 30' YVETTE LUCIO PT Feb 11, 2022 09:53
--- NOTE | 2022-02-11 10:26 | PM&R Progress Note ---
Subjective HPI/CC On Admission Date Seen by Provider: Feb 11, 2022 Time Seen by Provider: 10:30 Subjective/Events-last exam 02/11/2022: No major issues Pain is well controlled Blood sugars are good on Glyburide 02/10/2022: Patient doing very well Transitioning off insulin onto pill form of medication Doing well overall 02/09/2022: Patient doing well Sugars reviewed No pain reported 02/08/2022: Doing well Improved status Sugars improved Will transition to OHA soon 02/07/2022: Doing well Reviewed sugars Talked to him about transitioning to PO for DM management since he was only on Metformin in past Eye drops needs to be restarted after nurse calls pharmacy for exact type and dosing 02/06/2022: Patient tolerating pain well Reviewed meds Reviewed glucose Adjusting insulin Review of Systems General: Fatigue, Malaise Objective Exam Vital Signs Vital Signs Date Time Temp Pulse Resp B/P (MAP) Pulse Ox O2 Delivery O2 Flow Rate FiO2 02/11/22 20:10 Room Air 02/11/22 19:27 36.5 90 16 174/93 (120) 98 Capillary Refill : General Appearance: No Apparent Distress, WD/WN HEENT: PERRL/EOMI, Normal ENT Inspection, Pharynx Normal Neck: Full Range of Motion, Normal Inspection, Non Tender, Supple, Carotid Bruit Respiratory: Chest Non Tender, Lungs Clear, Normal Breath Sounds, No Accessory Muscle Use, No Respiratory Distress Cardiovascular: Regular Rate, Rhythm, No Edema, No Gallop, No JVD, No Murmur, Normal Peripheral Pulses Gastrointestinal: Normal Bowel Sounds, No Organomegaly, No Pulsatile Mass, Non Tender, Soft Back: Normal Inspection, No CVA Tenderness, No Vertebral Tenderness Extremity: Normal Capillary Refill, Normal Inspection, Normal Range of Motion, Non Tender, No Calf Tenderness, No Pedal Edema Neurologic/Psychiatric: Alert, Oriented x3, No Motor/Sensory Deficits, Normal Mood/Affect, frame stripper II-XII Norm as Tested, Motor Weakness Skin: Normal Color, Warm/Dry Lymphatic: No Adenopathy Results/Procedures Lab Patient resulted labs reviewed. FIM Transfers Therapy Code Descriptions/Definitions Functional [place] Measure: 0=Not Assessed/NA 4=Minimal Assistance 1=Total Assistance 5=Supervision or Setup 2=Maximal Assistance 6=Modified [place] 3=Moderate Assistance 7=Complete IndependenceSCALE: Activities may be completed with or without assistive devices. 6-Itgfkwgcsm-sqzuiiz completes the activity by him/herself with no assistance from a helper. 5-Set-up or Clean-up Assistance-helper sets up or cleans up; patient completes activity. [place] assists only prior to or following the activity. 4-Supervision or Touching Assistance-helper provides verbal cues and/or touchi ng/steadying and/or contact guard assistance as patient completes activity. Assistance may be provided throughout the activity or intermittently. 3-Partial/Moderate Assistance-helper does LESS THAN HALF the effort. [place] lifts, holds or supports trunk or limbs, but provides less than half the effort. 2-Substantial/Maximal Assistance-helper does MORE THAN HALF the effort. [place] lifts or holds trunk or limbs and provides more than half the effort. 6-Jkqihhbvp-aiwvla does ALL the effort. Patient does none of the effort to complete the activity. Or, the assistance of 2 or more helpers is required for the patient to complete the activity. If activity was not attempted, code reason: 7-Patient Refused. 9-Not Applicable-not attempted and the patient did not perform the activity before the current illness, exacerbation or injury. 10-Not Attempted due to Environmental Limitations-(lack of equipment, weather restraints, etc.). 88-Not Attempted due to Medical Conditions or Safety Concerns. Roll Left to Right (QC): 6 Sit to Lying (QC): 6 Sit to Stand (QC): 4 Chair/Ixp-iw-Yvbfc Xfer(QC): 4 Car Transfer (QC): 3 Gait Training Does the Patient Walk?: Yes Distance: 120'x2 Walk 10 feet (QC): 4 Walk 50 ft with 2 Turns(QC): 4 Walk 150 ft (QC): 4 Walking 10ft/uneven surface-QC: 3 Gait Persons Needed: 1 Gait Assistive Device: FWW Wheelchair Training Does the Pt Use a Wheelchair?: Yes Distance: 150 Wheel 50 ft with 2 turns (QC): 6 Wheel 150 ft (QC): 6 Type of Wheelchair: Manual Stair Training #of Steps: 0 1 Step (curb) (QC): 88 4 Steps (QC): 88 12 Steps (QC): 88 Balance Picking up an Object (QC): 88 ADL-Treatment Eating (QC): 6 Oral Hygiene (QC): 6 Shower/Bathe Self (QC): 4 Upper Body Dressing (QC): 6 Lower Body Dressing (QC): 4 On/Off Footwear (QC): 4 Toileting Hygiene (QC): 4 Toilet Transfer (QC): 6 Assessment/Plan Assessment and Plan Assess & Plan/Chief Complaint Assessment: 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
[2022-02-11] MEDS: DOCUSATE SODIUM 100 MG (COLACE) CAP PO SCH ×2 (11:28→20:08)
[2022-02-11] MEDS: SENNA W/DOCUSATE (SENOKOT S) TABLET PO SCH ×2 (11:29→20:09)
[2022-02-11] MEDS: polyethylene glycoL POWDER 17 GM (MIRALAX) PACK PO SCH ×2 (11:29→20:08)
[2022-02-11] MEDS: ENOXAPARIN 40 MG/0.4 ML (LOVENOX) SYR SQ SCH (11:40)
[2022-02-11] MEDS: TIMOLOL MALEATE 0.5% 5 ML (TIMOPTIC) BTL OU SCH (11:40)
[2022-02-11] MEDS: MICONAZOLE 2% POWDER (DESENEX AF) 90 GM TOP SCH ×2 (11:40→20:33)
--- NOTE | 2022-02-11 13:56 | Physical Therapy Daily Note ---
PT Daily Note-Current Subjective Patient in WC at bedside pre tx, agrees to PT, has no complaints of pain. Appearance Patient in WC at bedside post tx with nurse call, phone, tray, all needs met. Mental Status Patient Orientation: Person, Place, Situation Transfers SCALE: Activities may be completed with or without assistive devices. 4-Gbkrjjcqmx-krkdgde completes the activity by him/herself with no assistance from a helper. 5-Set-up or Clean-up Assistance-helper sets up or cleans up; patient completes activity. [place] assists only prior to or following the activity. 4-Supervision or Touching Assistance-helper provides verbal cues and/or touching/steadying and/or contact guard assistance as patient completes activity. Assistance may be provided throughout the activity or intermittently. 3-Partial/Moderate Assistance-helper does LESS THAN HALF the effort. [place] lifts, holds or supports trunk or limbs, but provides less than half the effort. 2-Substantial/Maximal Assistance-helper does MORE THAN HALF the effort. [place] lifts or holds trunk or limbs and provides more than half the effort. 1-Zxkifwivk-eehyvr does ALL the effort. Patient does none of the effort to complete the activity. Or, the assistance of 2 or more helpers is required for the patient to complete the activity. If activity was not attempted, code reason: 7-Patient Refused. 9-Not Applicable-not attempted and the patient did not perform the activity before the current illness, exacerbation or injury. 10-Not Attempted due to Environmental Limitations-(lack of equipment, weather restraints, etc.). 88-Not Attempted due to Medical Conditions or Safety Concerns. Sit to Stand (QC): 4 Chair/Dnz-id-Vzjla Xfer(QC): 4 Weight Bearing Right Lower Extremity: Right Non Weight Bearing Left Lower Extremity: Left Full Weight Bearing Gait Training Distance: 120'x2 Walk 10 feet (QC): 4 Walk 50 ft with 2 Turns(QC): 4 Gait Persons Needed: 1 Gait Assistive Device: FWW SBA Exercises Supine Ex: Quad Set, Straight leg raise, Hip abd/add Supine Reps: 20 (RLE) prone hip extension stretch 5 min Treatments transfers, ambulation, ROM, stretching Assessment Current Status: Fair Progress improving ambulation PT Solar Field Service Technician Goals Solar Field Service Technician Goals PT Solar Field Service Technician Goals Time Frame: Feb 26, 2022 Roll Left & Right (QC): 6 Sit to Lying (QC): 6 Lying-Sitting on Side/Bed(QC): 6 Sit to Stand (QC): 6 Chair/Zlf-ik-Rivel Xfer(QC): 6 Toilet Transfer (QC): 6 Car Transfer (QC): 6 Does the Patient Walk: Yes Walk 10 feet (QC): 6 Walk 50ft with 2 Turns (QC): 5 Walk 150 ft (QC): 6 Walking 10ft on Uneven Surface: 6 1 Step (curb) (QC): 4 4 Steps (QC): 4 12 Steps (QC): 3 Picking up an Object (QC): 6 Does the Pt use WC or Scooter?: Yes Wheel 50 feet with 2 turns (QC: 6 Type: Manual Wheel 150 feet: 6 Type: Manual PT Plan Problem List Problem List: Activity Tolerance, Functional Strength, Safety, Balance, Gait, Transfer, Bed Mobility Treatment/Plan Treatment Plan: Continue Plan of Care Treatment Plan: Bed Mobility, Education, Functional Activity Alyssa, Functional Strength, Group Therapy, Gait, Safety, Therapeutic Exercise, Transfers Treatment Duration: Mar 05, 2022 Frequency: At least 5 of 7 days/Wk (IRF) Estimated Hrs Per Day: 1.5 hours per day Patient and/or Family Agrees t: Yes Safety Risks/Education Patient Education: Gait Training, Transfer Techniques, Correct Positioning, Safety Issues Teaching Recipient: Patient Teaching Methods: Demonstration, Discussion Response to Teaching: Reinforcement Needed Time/GCodes Time In: 1300 Time Out: 1330 Total Billed Treatment Time: 30 Total Billed Treatment 1 visit EX 15' FA 15' YVETTE LUCIO PT Feb 11, 2022 13:56
[2022-02-11 19:27] VITALS: BP 174/93
[2022-02-11] MEDS: LATANOPROST 0.005% (XALATAN) OPHTH SOLN 2.5 ML OU SCH (20:33)
[2022-02-12] MEDS: inSUlin ASPART (NovoLOG) 1 UNIT/0.01 ML (CHARGE PER UNIT) SC SCH ×4 (05:46→20:14)
--- NOTE | 2022-02-12 06:23 | PM&R Progress Note ---
Subjective HPI/CC On Admission Date Seen by Provider: Feb 12, 2022 Time Seen by Provider: 12:00 Subjective/Events-last exam 02/12/2022: Doing well Sugars reviewed DC Wed No pain 02/11/2022: No major issues Pain is well controlled Blood sugars are good on Glyburide 02/10/2022: Patient doing very well Transitioning off insulin onto pill form of medication Doing well overall 02/09/2022: Patient doing well Sugars reviewed No pain reported 02/08/2022: Doing well Improved status Sugars improved Will transition to OHA soon 02/07/2022: Doing well Reviewed sugars Talked to him about transitioning to PO for DM management since he was only on Metformin in past Eye drops needs to be restarted after nurse calls pharmacy for exact type and dosing 02/06/2022: Patient tolerating pain well Reviewed meds Reviewed glucose Adjusting insulin Review of Systems General: Fatigue, Malaise Objective Exam Vital Signs Vital Signs Date Time Temp Pulse Resp B/P (MAP) Pulse Ox O2 Delivery O2 Flow Rate FiO2 02/12/22 09:13 Room Air 02/12/22 07:18 36.1 85 20 156/83 (107) 97 Capillary Refill : General Appearance: No Apparent Distress, WD/WN HEENT: PERRL/EOMI, Normal ENT Inspection, Pharynx Normal Neck: Full Range of Motion, Normal Inspection, Non Tender, Supple, Carotid Bruit Respiratory: Chest Non Tender, Lungs Clear, Normal Breath Sounds, No Accessory Muscle Use, No Respiratory Distress Cardiovascular: Regular Rate, Rhythm, No Edema, No Gallop, No JVD, No Murmur, Normal Peripheral Pulses Gastrointestinal: Normal Bowel Sounds, No Organomegaly, No Pulsatile Mass, Non Tender, Soft Back: Normal Inspection, No CVA Tenderness, No Vertebral Tenderness Extremity: Normal Capillary Refill, Normal Inspection, Normal Range of Motion, Non Tender, No Calf Tenderness, No Pedal Edema Neurologic/Psychiatric: Alert, Oriented x3, No Motor/Sensory Deficits, Normal Mood/Affect, plate drying machine tender II-XII Norm as Tested, Motor Weakness Skin: Normal Color, Warm/Dry Lymphatic: No Adenopathy Results/Procedures Lab Patient resulted labs reviewed. FIM Transfers Therapy Code Descriptions/Definitions Functional [place] Measure: 0=Not Assessed/NA 4=Minimal Assistance 1=Total Assistance 5=Supervision or Setup 2=Maximal Assistance 6=Modified [place] 3=Moderate Assistance 7=Complete IndependenceSCALE: Activities may be completed with or without assistive devices. 2-Vpxvwoubcs-oopaazg completes the activity by him/herself with no assistance from a helper. 5-Set-up or Clean-up Assistance-helper sets up or cleans up; patient completes activity. [place] assists only prior to or following the activity. 4-Supervision or Touching Assistance-helper provides verbal cues and/or touching/steadying and/or contact guard assistance as patient completes activity . Assistance may be provided throughout the activity or intermittently. 3-Partial/Moderate Assistance-helper does LESS THAN HALF the effort. [place] lifts, holds or supports trunk or limbs, but provides less than half the effort. 2-Substantial/Maximal Assistance-helper does MORE THAN HALF the effort. [place] lifts or holds trunk or limbs and provides more than half the effort. 6-Zgqpqvyca-nnmlev does ALL the effort. Patient does none of the effort to complete the activity. Or, the assistance of 2 or more helpers is required for the patient to complete the activity. If activity was not attempted, code reason: 7-Patient Refused. 9-Not Applicable-not attempted and the patient did not perform the activity before the current illness, exacerbation or injury. 10-Not Attempted due to Environmental Limitations-(lack of equipment, weather restraints, etc.). 88-Not Attempted due to Medical Conditions or Safety Concerns. Roll Left to Right (QC): 6 Sit to Lying (QC): 6 Sit to Stand (QC): 4 Chair/Fbw-iu-Vhyvt Xfer(QC): 4 Car Transfer (QC): 3 Gait Training Does the Patient Walk?: Yes Distance: 120'x2 Walk 10 feet (QC): 4 Walk 50 ft with 2 Turns(QC): 4 Walk 150 ft (QC): 4 Walking 10ft/uneven surface-QC: 3 Gait Persons Needed: 1 Gait Assistive Device: FWW Wheelchair Training Does the Pt Use a Wheelchair?: Yes Distance: 150 Wheel 50 ft with 2 turns (QC): 6 Wheel 150 ft (QC): 6 Type of Wheelchair: Manual Stair Training #of Steps: 0 1 Step (curb) (QC): 88 4 Steps (QC): 88 12 Steps (QC): 88 Balance Picking up an Object (QC): 88 ADL-Treatment Eating (QC): 6 Oral Hygiene (QC): 6 Shower/Bathe Self (QC): 4 Upper Body Dressing (QC): 6 Lower Body Dressing (QC): 4 On/Off Footwear (QC): 4 Toileting Hygiene (QC): 4 Toilet Transfer (QC): 6 Assessment/Plan Assessment and Plan Assess & Plan/Chief Complaint Assessment: 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
[2022-02-12 07:18] VITALS: BP 156/83
[2022-02-12] MEDS: glyBURIDE 2.5 MG (MICRONASE) TAB PO SCH (08:53)
[2022-02-12] MEDS: MICONAZOLE 2% POWDER (DESENEX AF) 90 GM TOP SCH ×2 (08:53→20:48)
[2022-02-12] MEDS: TIMOLOL MALEATE 0.5% 5 ML (TIMOPTIC) BTL OU SCH (08:53)
[2022-02-12] MEDS: polyethylene glycoL POWDER 17 GM (MIRALAX) PACK PO SCH ×2 (09:12→19:45)
[2022-02-12] MEDS: DOCUSATE SODIUM 100 MG (COLACE) CAP PO SCH ×2 (09:12→19:45)
[2022-02-12] MEDS: SENNA W/DOCUSATE (SENOKOT S) TABLET PO SCH ×2 (09:12→19:45)
[2022-02-12] MEDS: ENOXAPARIN 40 MG/0.4 ML (LOVENOX) SYR SQ SCH (11:00)
--- NOTE | 2022-02-12 11:31 | Physical Therapy Daily Note ---
PT Daily Note-Current Subjective Pt in WC upon arrival and agrees to PT. No pain reported. Mental Status Patient Orientation: Person, Place, Time, Situation Transfers SCALE: Activities may be completed with or without assistive devices. 4-Ybdyevfdeu-xwfuqlq completes the activity by him/herself with no assistance from a helper. 5-Set-up or Clean-up Assistance-helper sets up or cleans up; patient completes activity. [place] assists only prior to or following the activity. 4-Supervision or Touching Assistance-helper provides verbal cues and/or touching/steadying and/or contact guard assistance as patient completes activity. Assistance may be provided throughout the activity or intermittently. 3-Partial/Moderate Assistance-helper does LESS THAN HALF the effort. [place] lifts, holds or supports trunk or limbs, but provides less than half the effort. 2-Substantial/Maximal Assistance-helper does MORE THAN HALF the effort. [place] lifts or holds trunk or limbs and provides more than half the effort. 1-Nllufyezc-ijflco does ALL the effort. Patient does none of the effort to complete the activity. Or, the assistance of 2 or more helpers is required for the patient to complete the activity. If activity was not attempted, code reason: 7-Patient Refused. 9-Not Applicable-not attempted and the patient did not perform the activity before the current illness, exacerbation or injury. 10-Not Attempted due to Environmental Limitations-(lack of equipment, weather restraints, etc.). 88-Not Attempted due to Medical Conditions or Safety Concerns. Sit to Stand (QC): 4 Chair/Tmp-qn-Pejvl Xfer(QC): 4 Weight Bearing Right Lower Extremity: Right Non Weight Bearing Left Lower Extremity: Left Full Weight Bearing Wheelchair Training Does the Pt Use a Wheelchair?: Yes Wheel 50 ft with 2 turns (QC): 5 Wheel 150 ft (QC): 5 Type of Wheelchair: Manual Exercises NuStep Minutes: 10 NuStep Workload: 5 Treatments Pt wheels himself to therapy gym and TFs to nustep. Following nustep pt wheeled to bailey mat and pt TFs to mat. Pt then performs prone stretch for hip flexors and supine exs. Pt then TFs back to WC and wheels himself back to room. Pt requests to stay in and all needs met as PT departs. Assessment Current Status: Good Progress Pt required cues for hand and foot placement while performing TFs. PT [facility] Goals Platemaker Goals PT Platemaker Goals Time Frame: Feb 26, 2022 Roll Left & Right (QC): 6 Sit to Lying (QC): 6 Lying-Sitting on Side/Bed(QC): 6 Sit to Stand (QC): 6 Chair/Jki-if-Ivhum Xfer(QC): 6 Toilet Transfer (QC): 6 Car Transfer (QC): 6 Does the Patient Walk: Yes Walk 10 feet (QC): 6 Walk 50ft with 2 Turns (QC): 5 Walk 150 ft (QC): 6 Walking 10ft on Uneven Surface: 6 1 Step (curb) (QC): 4 4 Steps (QC): 4 12 Steps (QC): 3 Picking up an Object (QC): 6 Does the Pt use WC or Scooter?: Yes Wheel 50 feet with 2 turns (QC: 6 Type: Manual Wheel 150 feet: 6 Type: Manual PT Plan Problem List Problem List: Activity Tolerance, Functional Strength Treatment/Plan Treatment Plan: Continue Plan of Care Treatment Plan: Bed Mobility, Education, Functional Activity Alyssa, Functional Strength, Group Therapy, Gait, Safety, Therapeutic Exercise, Transfers Treatment Duration: Mar 05, 2022 Frequency: At least 5 of 7 days/Wk (IRF) Estimated Hrs Per Day: 1.5 hours per day Patient and/or Family Agrees t: Yes Safety Risks/Education Patient Education: Transfer Techniques, Correct Positioning Teaching Recipient: Patient Teaching Methods: Discussion Response to Teaching: Return Demonstration Time/GCodes Time In: 1005 Time Out: 1025 Total Billed Treatment Time: 20 Total Billed Treatment 1, Ex MICHELLE GUPTA PTA Feb 12, 2022 11:31
[2022-02-12 20:00] VITALS: BP 155/77
[2022-02-12] MEDS: LATANOPROST 0.005% (XALATAN) OPHTH SOLN 2.5 ML OU SCH (20:48)
[2022-02-13] MEDS: inSUlin ASPART (NovoLOG) 1 UNIT/0.01 ML (CHARGE PER UNIT) SC SCH ×2 (06:26→12:09)
--- NOTE | 2022-02-13 06:53 | PM&R Progress Note ---
Subjective HPI/CC On Admission Date Seen by Provider: Feb 13, 2022 Time Seen by Provider: 12:00 Subjective/Events-last exam 02/13/2022: Patient doing well Sugars improved Decreasing Accu-Cheks to once daily 02/12/2022: Doing well Sugars reviewed DC Wed No pain 02/11/2022: No major issues Pain is well controlled Blood sugars are good on Glyburide 02/10/2022: Patient doing very well Transitioning off insulin onto pill form of medication Doing well overall 02/09/2022: Patient doing well Sugars reviewed No pain reported 02/08/2022: Doing well Improved status Sugars improved Will transition to OHA soon 02/07/2022: Doing well Reviewed sugars Talked to him about transitioning to PO for DM management since he was only on Metformin in past Eye drops needs to be restarted after nurse calls pharmacy for exact type and dosing 02/06/2022: Patient tolerating pain well Reviewed meds Reviewed glucose Adjusting insulin Review of Systems General: Fatigue, Malaise Musculoskeletal: leg pain Objective Exam Vital Signs Vital Signs Date Time Temp Pulse Resp B/P (MAP) Pulse Ox O2 Delivery O2 Flow Rate FiO2 02/13/22 08:27 Room Air 02/13/22 07:12 36.2 79 18 149/83 (105) 97 Capillary Refill : General Appearance: No Apparent Distress, WD/WN HEENT: PERRL/EOMI, Normal ENT Inspection, Pharynx Normal Neck: Full Range of Motion, Normal Inspection, Non Tender, Supple, Carotid Bruit Respiratory: Chest Non Tender, Lungs Clear, Normal Breath Sounds, No Accessory Muscle Use, No Respiratory Distress Cardiovascular: Regular Rate, Rhythm, No Edema, No Gallop, No JVD, No Murmur, Normal Peripheral Pulses Gastrointestinal: Normal Bowel Sounds, No Organomegaly, No Pulsatile Mass, Non Tender, Soft Back: Normal Inspection, No CVA Tenderness, No Vertebral Tenderness Extremity: Normal Capillary Refill, Normal Inspection, Normal Range of Motion, Non Tender, No Calf Tenderness, No Pedal Edema Neurologic/Psychiatric: Alert, Oriented x3, No Motor/Sensory Deficits, Normal Mood/Affect, supervisor transcribing operators II-XII Norm as Tested, Motor Weakness Skin: Normal Color, Warm/Dry Lymphatic: No Adenopathy Results/Procedures Lab Patient resulted labs reviewed. FIM Transfers Therapy Code Descriptions/Definitions Functional [place] Measure: 0=Not Assessed/NA 4=Minimal Assistance 1=Total Assistance 5=Supervision or Setup 2=Maximal Assistance 6=Modified [place] 3=Moderate Assistance 7=Complete IndependenceSCALE: Activities may be completed with or without assistive devices. 4-Sngprbpywx-qszcsxp completes the activity by him/herself with no assistance from a helper. 5-Set-up or Clean-up Assistance-helper sets up or cleans up; patient completes activity. [place] assists only prior to or following the activity. 4-Supervision or Touching Assistance-helper provides verbal cues and/or touching/steadying and/or contact guard assistance as patient completes activ ity. Assistance may be provided throughout the activity or intermittently. 3-Partial/Moderate Assistance-helper does LESS THAN HALF the effort. [place] lifts, holds or supports trunk or limbs, but provides less than half the effort. 2-Substantial/Maximal Assistance-helper does MORE THAN HALF the effort. [place] lifts or holds trunk or limbs and provides more than half the effort. 2-Edubqtwci-bzypht does ALL the effort. Patient does none of the effort to complete the activity. Or, the assistance of 2 or more helpers is required for the patient to complete the activity. If activity was not attempted, code reason: 7-Patient Refused. 9-Not Applicable-not attempted and the patient did not perform the activity before the current illness, exacerbation or injury. 10-Not Attempted due to Environmental Limitations-(lack of equipment, weather restraints, etc.). 88-Not Attempted due to Medical Conditions or Safety Concerns. Roll Left to Right (QC): 6 Sit to Lying (QC): 6 Sit to Stand (QC): 4 Chair/Sty-og-Emqjq Xfer(QC): 4 Car Transfer (QC): 3 Gait Training Does the Patient Walk?: Yes Distance: 120'x2 Walk 10 feet (QC): 4 Walk 50 ft with 2 Turns(QC): 4 Walk 150 ft (QC): 4 Walking 10ft/uneven surface-QC: 3 Gait Persons Needed: 1 Gait Assistive Device: FWW Wheelchair Training Does the Pt Use a Wheelchair?: Yes Distance: 150 Wheel 50 ft with 2 turns (QC): 5 Wheel 150 ft (QC): 5 Type of Wheelchair: Manual Stair Training #of Steps: 0 1 Step (curb) (QC): 88 4 Steps (QC): 88 12 Steps (QC): 88 Balance Picking up an Object (QC): 88 ADL-Treatment Eating (QC): 6 Oral Hygiene (QC): 6 Shower/Bathe Self (QC): 4 Upper Body Dressing (QC): 6 Lower Body Dressing (QC): 4 On/Off Footwear (QC): 4 Toileting Hygiene (QC): 4 Toilet Transfer (QC): 6 Assessment/Plan Assessment and Plan Assess & Plan/Chief Complaint Assessment: 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 DM HTN Post op anemia Glaucoma Plan: Monitor sugars PT OT Pain control Stump applications support lead when incision healed 02/06/2022: Increase insulin Pain control 02/07/2022: Eye drops Monitor sugars 02/08/2022: OHA and transition from insulin Monitor closely 02/09/2022: Monitor sugars 02/10/2022: Transition to pill form of diabetes management 02/11/2022: Supportive care Monitor closely 02/12/2022: Monitor closely Sugars improved 02/13/2022: Decrease Accu-Cheks Decreased dose of oral hypoglycemic agent (1) Below-knee amputation of right lower extremity Status: Acute (2) Insulin dependent diabetes mellitus Status: Acute ITZ BELCHER DO Feb 13, 2022 06:53
[2022-02-13 07:12] VITALS: BP 149/83
[2022-02-13] MEDS: glyBURIDE 2.5 MG (MICRONASE) TAB PO SCH (08:14)
[2022-02-13] MEDS: TIMOLOL MALEATE 0.5% 5 ML (TIMOPTIC) BTL OU SCH (08:14)
[2022-02-13] MEDS: MICONAZOLE 2% POWDER (DESENEX AF) 90 GM TOP SCH ×2 (08:14→21:09)
[2022-02-13] MEDS: polyethylene glycoL POWDER 17 GM (MIRALAX) PACK PO SCH ×2 (08:25→19:59)
[2022-02-13] MEDS: DOCUSATE SODIUM 100 MG (COLACE) CAP PO SCH ×2 (08:25→19:59)
[2022-02-13] MEDS: SENNA W/DOCUSATE (SENOKOT S) TABLET PO SCH ×2 (08:25→19:59)
[2022-02-13] MEDS: ENOXAPARIN 40 MG/0.4 ML (LOVENOX) SYR SQ SCH (12:10)
[2022-02-13] MEDS: LATANOPROST 0.005% (XALATAN) OPHTH SOLN 2.5 ML OU SCH (21:10)
[2022-02-14 06:44] LABS: BASOPHILS % (AUTO) 1 % (0-10); EOSINOPHILS # (AUTO) 0.3 10^3/uL (0.0-0.3); EOSINOPHILS % (AUTO) 5 % (0-10); HEMATOCRIT 30 % (40-54); HEMOGLOBIN 9.7 g/dL (13.3-17.7); LYMPHOCYTES # (AUTO) 1.5 10^3/uL (1.0-4.0); LYMPHOCYTES % (AUTO) 24 % (12-44); MEAN CORPUSCULAR HEMOGLOBIN 30 pg (25-34); MEAN CORPUSCULAR HGB CONC 33 g/dL (32-36); MEAN CORPUSCULAR VOLUME 92 fL (80-99); MEAN PLATELET VOLUME 9.2 fL (9.0-12.2); MONOCYTES # (AUTO) 0.4 10^3/uL (0.0-1.0); MONOCYTES % (AUTO) 7 % (0-12); NEUTROPHILS # (AUTO) 4.1 10^3/uL (1.8-7.8); NEUTROPHILS % (AUTO) 63 % (42-75); PLATELET COUNT 379 10^3/uL (130-400); WHITE BLOOD COUNT 6.5 10^3/uL (4.3-11.0)
[2022-02-14 06:59] LABS: ALBUMIN 2.7 GM/DL (3.2-4.5); BILIRUBIN,TOTAL 0.4 MG/DL (0.1-1.0); CALCIUM 8.5 MG/DL (8.5-10.1); CREATININE SERUM 0.92 MG/DL (0.60-1.30); POTASSIUM 3.6 MMOL/L (3.6-5.0)
--- NOTE | 2022-02-14 07:14 | PM&R Progress Note ---
Subjective HPI/CC On Admission Date Seen by Provider: Feb 14, 2022 Time Seen by Provider: 12:00 Subjective/Events-last exam 02/14/2022: No new issues Pain controlled Ready for DC 02/13/2022: Patient doing well Sugars improved Decreasing Accu-Cheks to once daily 02/12/2022: Doing well Sugars reviewed DC Wed No pain 02/11/2022: No major issues Pain is well controlled Blood sugars are good on Glyburide 02/10/2022: Patient doing very well Transitioning off insulin onto pill form of medication Doing well overall 02/09/2022: Patient doing well Sugars reviewed No pain reported 02/08/2022: Doing well Improved status Sugars improved Will transition to OHA soon 02/07/2022: Doing well Reviewed sugars Talked to him about transitioning to PO for DM management since he was only on Metformin in past Eye drops needs to be restarted after nurse calls pharmacy for exact type and dosing 02/06/2022: Patient tolerating pain well Reviewed meds Reviewed glucose Adjusting insulin Review of Systems General: Fatigue, Malaise Objective Exam Vital Signs Vital Signs Date Time Temp Pulse Resp B/P (MAP) Pulse Ox O2 Delivery O2 Flow Rate FiO2 02/14/22 08:41 Room Air 02/14/22 07:50 36.9 81 18 158/79 (105) 96 Capillary Refill : General Appearance: No Apparent Distress, WD/WN HEENT: PERRL/EOMI, Normal ENT Inspection, Pharynx Normal Neck: Full Range of Motion, Normal Inspection, Non Tender, Supple, Carotid Bruit Respiratory: Chest Non Tender, Lungs Clear, Normal Breath Sounds, No Accessory Muscle Use, No Respiratory Distress Cardiovascular: Regular Rate, Rhythm, No Edema, No Gallop, No JVD, No Murmur, Normal Peripheral Pulses Gastrointestinal: Normal Bowel Sounds, No Organomegaly, No Pulsatile Mass, Non Tender, Soft Back: Normal Inspection, No CVA Tenderness, No Vertebral Tenderness Extremity: Normal Capillary Refill, Normal Inspection, Normal Range of Motion, Non Tender, No Calf Tenderness, No Pedal Edema Neurologic/Psychiatric: Alert, Oriented x3, No Motor/Sensory Deficits, Normal Mood/Affect, media theorist and author of II-XII Norm as Tested, Motor Weakness Skin: Normal Color, Warm/Dry Lymphatic: No Adenopathy Results/Procedures Lab Laboratory Tests 02/14/22 06:30 Patient resulted labs reviewed. FIM Transfers Therapy Code Descriptions/Definitions Functional [place] Measure: 0=Not Assessed/NA 4=Minimal Assistance 1=Total Assistance 5=Supervision or Setup 2=Maximal Assistance 6=Modified [place] 3=Moderate Assistance 7=Complete IndependenceSCALE: Activities may be completed with or without assistive devices. 4-Ffjngmugkd-ryguhmu completes the activity by him/herself with no assistance from a helper. 5-Set-up or Clean-up Assistance-helper sets up or cleans up; patient completes activity. [place] assists only prior to or following the activity. 4-Supervision or Touching Assistance-helper provides verbal cues and/or touching/steadying and/or contact guard assistance as patient completes activity. Assistance may be provided throughout the activity or intermittently. 3-Partial/Moderate Assistance-helper does LESS THAN HALF the effort. [place] lifts, holds or supports trunk or limbs, but provides less than half the effort. 2-Substantial/Maximal Assistance-helper does MORE THAN HALF the effort. [place] lifts or holds trunk or limbs and provides more than half the effort. 2-Ytvewyiyb-vuukeh does ALL the effort. Patient does none of the effort to complete the activity. Or, the assistance of 2 or more helpers is required for the patient to complete the activity. If activity was not attempted, code reason: 7-Patient Refused. 9-Not Applicable-not attempted and the patient did not perform the activity before the current illness, exacerbation or injury. 10-Not Attempted due to Environmental Limitations-(lack of equipment, weather restraints, etc.). 88-Not Attempted due to Medical Conditions or Safety Concerns. Roll Left to Right (QC): 6 Sit to Lying (QC): 6 Sit to Stand (QC): 4 Chair/Olh-ki-Qrghz Xfer(QC): 4 Car Transfer (QC): 3 Gait Training Does the Patient Walk?: Yes Distance: 120'x2 Walk 10 feet (QC): 4 Walk 50 ft with 2 Turns(QC): 4 Walk 150 ft (QC): 4 Walking 10ft/uneven surface-QC: 3 Gait Persons Needed: 1 Gait Assistive Device: FWW Wheelchair Training Does the Pt Use a Wheelchair?: Yes Distance: 150 Wheel 50 ft with 2 turns (QC): 5 Wheel 150 ft (QC): 5 Type of Wheelchair: Manual Stair Training #of Steps: 0 1 Step (curb) (QC): 88 4 Steps (QC): 88 12 Steps (QC): 88 Balance Picking up an Object (QC): 88 ADL-Treatment Eating (QC): 6 Oral Hygiene (QC): 6 Shower/Bathe Self (QC): 4 Upper Body Dressing (QC): 6 Lower Body Dressing (QC): 4 On/Off Footwear (QC): 4 Toileting Hygiene (QC): 4 Toilet Transfer (QC): 6 Assessment/Plan Assessment and Plan Assess & Plan/Chief Complaint Assessment: 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 DM HTN Post op anemia Glaucoma Plan: Monitor sugars PT OT Pain control Stump hat lining paster when incision healed 02/06/2022: Increase insulin Pain control 02/07/2022: Eye drops Monitor sugars 02/08/2022: OHA and transition from insulin Monitor closely 02/09/2022: Monitor sugars 02/10/2022: Transition to pill form of diabetes management 02/11/2022: Supportive care Monitor closely 02/12/2022: Monitor closely Sugars improved 02/13/2022: Decrease Accu-Cheks Decreased dose of oral hypoglycemic agent 02/14/2022: Monitor closely Sugars good (1) Below-knee amputation of right lower extremity Status: Acute (2) Insulin dependent diabetes mellitus Status: Acute ITZ BELCHRE DO Feb 14, 2022 07:14
[2022-02-14 07:50] VITALS: BP 158/79
[2022-02-14] MEDS: TIMOLOL MALEATE 0.5% 5 ML (TIMOPTIC) BTL OU SCH (08:31)
[2022-02-14] MEDS: MICONAZOLE 2% POWDER (DESENEX AF) 90 GM TOP SCH ×2 (08:31→20:11)
[2022-02-14] MEDS: glyBURIDE 2.5 MG (MICRONASE) TAB PO SCH (08:32)
[2022-02-14] MEDS: DOCUSATE SODIUM 100 MG (COLACE) CAP PO SCH ×2 (08:33→20:10)
[2022-02-14] MEDS: SENNA W/DOCUSATE (SENOKOT S) TABLET PO SCH ×2 (08:34→20:10)
[2022-02-14] MEDS: polyethylene glycoL POWDER 17 GM (MIRALAX) PACK PO SCH ×2 (08:34→20:10)
--- NOTE | 2022-02-14 09:30 | Occupational Ther Daily Note ---
OT Current Status-Daily Note Subjective Pt sitting in w/c with nursing present upon arrival. He agreed to a shower, as well as stated he was leaving Monday. Appearance Pt was left in w/c with all needs within reach. Mental Status/Objective Patient Orientation: Person, Place, Time, Situation ADL-Treatment Therapy Code Descriptions/Definitions Functional [place] Measure: 0=Not Assessed/NA 4=Minimal Assistance 1=Total Assistance 5=Supervision or Setup 2=Maximal Assistance 6=Modified [place] 3=Moderate Assistance 7=Complete IndependenceSCALE: Activities may be completed with or without assistive devices. 0-Mnoozxdkjs-zlgjqmj completes the activity by him/herself with no assistance from a helper. 5-Set-up or Clean-up Assistance-helper sets up or cleans up; patient completes activity. [place] assists only prior to or following the activity. 4-Supervision or Touching Assistance-helper provides verbal cues and/or touching/steadying and/or contact guard assistance as patient completes activity. Assistance may be provided throughout the activity or intermittently. 3-Partial/Moderate Assistance-helper does LESS THAN HALF the effort. [place] lifts, holds or supports trunk or limbs, but provides less than half the effort. 2-Substantial/Maximal Assistance-helper does MORE THAN HALF the effort. [place] lifts or holds trunk or limbs and provides more than half the effort. 9-Vmqdgnztj-tgqfqw does ALL the effort. Patient does none of the effort to complete the activity. Or, the assistance of 2 or more helpers is required for the patient to complete the activity. If activity was not attempted, code reason: 7-Patient Refused. 9-Not Applicable-not attempted and the patient did not perform the activity before the current illness, exacerbation or injury. 10-Not Attempted due to Environmental Limitations-(lack of equipment, weather restraints, etc.). 88-Not Attempted due to Medical Conditions or Safety Concerns. Shower/Bathe Self (QC): 5 Upper Body Dressing (QC): 6 Lower Body Dressing (QC): 4 On/Off Footwear: 5 Toileting Hygiene (QC): 6 Toilet Transfer (QC): 6 Pt continent of bowels on toilet. Able to perform iva care in sitting with independence. Shower performed; 100% completed in sitting. Good recall on use of LHS to improve independence/safety when washing foot. Clothing donned seated in w/c. Pt able to thread LLE and residual limb without assistance. Supervision for safety as he stood to manage clothing up to waist. Shaving performed at w/c level, min a for thoroughness only. Small wound Noted on back of R residual limb, possibly related to ampushield rubbing as pt reports he tried to don shield by self over the weekend. Nursing notified and padding was placed over spot. Education given on the importance of skin integrity and pressure relief. Mod a to don ampushield, yet pt continues to exhibit improved tolerance and independence with task. Set up assist when donning L sock/shoe. Education OT Patient Education: Correct positioning, Disease process, Energy conservation, Home exercise program, Instructions don/doff splint/brace, Modified ADL techniques, Progress toward Goal/Update tx plan, Purpose of tx/functional activities, Rehab process, Safety issues, Transfer techniques, W/C management Teaching Recipient: Patient Teaching Methods: Discussion Response to Teaching: Verbalize Understanding, Return Demonstration OT Short Term Goals Short Term Goals Time Frame: Feb 14, 2022 Eatin Oral hygiene: 5 Toileting hygiene: 4 Shower/bathe self: 4 Upper body dressin Lower body dressin Putting on/taking off footwear: 4 OT Lye Peel Operator Goals Lye Peel Operator Goals Time Frame: Feb 21, 2022 Eating (QC): 6 Oral Hygiene (QC): 6 Toileting Hygiene (QC): 6 Shower/Bathe Self (QC): 5 Upper Body Dressing (QC): 6 Lower Body Dressing (QC): 5 On/Off Footwear (QC): 5 Additional Goals: 1-Demonstrate ADL Tasks, 2-Verbalize Understanding, 3- ImproveStrength/Alyssa 1=Demonstrate adherence to instructed precautions during ADL tasks. 2=Patient will verbalize/demonstrate understanding of assistive devices/modifications for ADL. 3=Patient will improve strength/tolerance for activity to enable patient to perform ADL's. OT Education/Plan Problem List/Assessment Assessment: Decreased Activ Tolerance, Decreased Safety Aware, Decreased UE Strength, Impaired Cognition, Impaired Funct Balance, Impaired I ADL's, Impaired Self-Care Skills, Visual-Perceptual Deficit Discharge Recommendations Plan/Recommendations: Continue POC Therapy Discharge Recommendati: Post Acute OT Equpiment Recommendations-D/C: Bath Chair Treatment Plan/Plan of Care Treatment,Training & Education: Yes Patient would benefit from OT for education, treatment and training to promote independence in ADL's, mobility, safety and/or upper extremity function for ADL's. Plan of Care: ADL Retraining, Cognitive Retraining, Concurrent Therapy, Functional Mobility, Group Exercise/Act as Ind, Orthotic Fitting/Training, UE Funct Exercise/Act, W/C Management Training Treatment Duration: Feb 21, 2022 Frequency: At least 5 of 7 days/Wk (IRF) Estimated Hrs Per Day: 1.5 hours per day (75-90 min/day) Agreement: Yes Rehab Potential: Fair Time/GCodes Start Time: 08:30 Stop Time: 09:30 Total Time Billed (hr/min): 60 Billed Treatment Time 1 visit ADL x4 Licha Lee OT Feb 14, 2022 09:29
--- NOTE | 2022-02-14 10:59 | Physical Therapy Daily Note ---
PT Daily Note-Current Subjective Pt. agrees to Rx, states he has been looking forward to walking . Hopes to home on Mon Pain Location: No Pain Reported Mental Status Patient Orientation: Normal For Age Attachments: Other-See Comments (knee immoblizer/distal residula limb protector) Transfers SCALE: Activities may be completed with or without assistive devices. 3-Snlnldclze-uekbfmj completes the activity by him/herself with no assistance from a helper. 5-Set-up or Clean-up Assistance-helper sets up or cleans up; patient completes activity. [place] assists only prior to or following the activity. 4-Supervision or Touching Assistance-helper provides verbal cues and/or touching/steadying and/or contact guard assistance as patient completes activity. Assistance may be provided throughout the activity or intermittently. 3-Partial/Moderate Assistance-helper does LESS THAN HALF the effort. [place] lifts, holds or supports trunk or limbs, but provides less than half the effort. 2-Substantial/Maximal Assistance-helper does MORE THAN HALF the effort. [place] lifts or holds trunk or limbs and provides more than half the effort. 1-Bvjwvqbjt-tvxcre does ALL the effort. Patient does none of the effort to complete the activity. Or, the assistance of 2 or more helpers is required for the patient to complete the activity. If activity was not attempted, code reason: 7-Patient Refused. 9-Not Applicable-not attempted and the patient did not perform the activity before the current illness, exacerbation or injury. 10-Not Attempted due to Environmental Limitations-(lack of equipment, weather restraints, etc.). 88-Not Attempted due to Medical Conditions or Safety Concerns. Roll Left & Right (QC): 6 Sit to Lying (QC): 6 Lying to Sitting/Side of Bed(Q: 6 Sit to Stand (QC): 6 Chair/Pue-be-Oqvvi Xfer(QC): 6 Car Transfer (QC): 4 Weight Bearing Right Lower Extremity: Right Non Weight Bearing Left Lower Extremity: Left Full Weight Bearing Gait Training Walk 10 feet (QC): 6 Walk 50 ft with 2 Turns(QC): 6 Walk 150 ft (QC): 6 Gait Persons Needed: 1 Gait Assistive Device: FWW [id number] to CGA, no LOB Exercises Supine Ex: Bridging, Ankle pumps, Quad Set, Rolling, Glut sets, Heel Slides, Scooting, Straight leg raise, Hip abd/add (sidelying) Supine Reps: 15 Seated Therapy Exercises: Ankle pumps, Sit to stand, Long arc quads, Hip flexion Seated Reps: [address] Ex=Flex, Abd, Ext Standing Reps: 12 NuStep Minutes: 12 NuStep Workload: 2 Assessment Current Status: Good Progress PT Tobacco Primer Machine Operator Goals Nursing Home Goals PT Nursing Home Goals Time Frame: Feb 26, 2022 Roll Left & Right (QC): 6 Sit to Lying (QC): 6 Lying-Sitting on Side/Bed(QC): 6 Sit to Stand (QC): 6 Chair/Vdr-my-Qymmb Xfer(QC): 6 Toilet Transfer (QC): 6 Car Transfer (QC): 6 Does the Patient Walk: Yes Walk 10 feet (QC): 6 Walk 50ft with 2 Turns (QC): 5 Walk 150 ft (QC): 6 Walking 10ft on Uneven Surface: 6 1 Step (curb) (QC): 4 4 Steps (QC): 4 12 Steps (QC): 3 Picking up an Object (QC): 6 Does the Pt use WC or Scooter?: Yes Wheel 50 feet with 2 turns (QC: 6 Type: Manual Wheel 150 feet: 6 Type: Manual PT Plan Treatment/Plan Treatment Plan: Continue Plan of Care Treatment Plan: Bed Mobility, Education, Functional Activity Alyssa, Functional Strength, Group Therapy, Gait, Safety, Therapeutic Exercise, Transfers Treatment Duration: Mar 05, 2022 Frequency: At least 5 of 7 days/Wk (IRF) Estimated Hrs Per Day: 1.5 hours per day Patient and/or Family Agrees t: Yes Safety Risks/Education Patient Education: Gait Training, Transfer Techniques, Correct Positioning, Disease Process, Safety Issues Teaching Recipient: Patient Teaching Methods: Demonstration, Discussion Response to Teaching: Verbalize Understanding, Return Demonstration, Reinforcement Needed Time/GCodes Time In: 1000 Time Out: 1100 Total Billed Treatment Time: 60 Total Billed Treatment 1,GT30m,EX30m CONRAD MORALES FINISHED HARDWARE ERECTOR Feb 14, 2022 10:59
[2022-02-14] MEDS: ENOXAPARIN 40 MG/0.4 ML (LOVENOX) SYR SQ SCH (11:29)
--- NOTE | 2022-02-14 14:24 | Therapy Group Daily Note ---
Therapy Daily Group Note Patient Education Topic Exercises Exercises LE Seated Exercise, Stretching, Gross Motor, UE Exercise Session Ratio (pt:therapist): 4:1 Goal of Session: Education on ARU Expectations, UE/LE Strengthing Goal Met for this Session: Yes Pt Benefit of Group: Increased Functional Strength, Socialization Other/Notes Pt. participated in group PT session this date. Pt. ambulated using FWW to and from then sat in w/c for session. Pt. was social, introduced himself and shared and interacted appropriately. Pts faced one another in groups either side of a net and played balloon volleyball, reaching and wt shifting ,side to side and for and back. Pts also participated in UE exercises using PVC pipe , Pts were lead through cervical exercises and some lower extremity exercises as well. A fun display of "punny toys " were demonstrated and pts guessed their meaning . Pts were educated in bed positioning and how to manage this. Pt. was assisted back to room after rx with call cho at hand and needs met Start Time: 13:00 Stop Time: 14:00 Total Billed Treatment Time: 60 Total Billed Treatment 1,GRP CONRAD MORALES FOAM RUBBER MOLDER Feb 14, 2022 14:24
[2022-02-14 19:47] VITALS: BP 160/82
[2022-02-14] MEDS: LATANOPROST 0.005% (XALATAN) OPHTH SOLN 2.5 ML OU SCH (20:09)
--- NOTE | 2022-02-15 06:52 | PM&R Progress Note ---
Subjective HPI/CC On Admission Date Seen by Provider: Feb 15, 2022 Time Seen by Provider: 08:30 Subjective/Events-last exam 02/15/2022: No major issues Pain controlled with APAP No falls 02/14/2022: No new issues Pain controlled Ready for DC 02/13/2022: Patient doing well Sugars improved Decreasing Accu-Cheks to once daily 02/12/2022: Doing well Sugars reviewed DC Wed No pain 02/11/2022: No major issues Pain is well controlled Blood sugars are good on Glyburide 02/10/2022: Patient doing very well Transitioning off insulin onto pill form of medication Doing well overall 02/09/2022: Patient doing well Sugars reviewed No pain reported 02/08/2022: Doing well Improved status Sugars improved Will transition to OHA soon 02/07/2022: Doing well Reviewed sugars Talked to him about transitioning to PO for DM management since he was only on Metformin in past Eye drops needs to be restarted after nurse calls pharmacy for exact type and dosing 02/06/2022: Patient tolerating pain well Reviewed meds Reviewed glucose Adjusting insulin Review of Systems General: Fatigue, Malaise Objective Exam Vital Signs Vital Signs Date Time Temp Pulse Resp B/P (MAP) Pulse Ox O2 Delivery O2 Flow Rate FiO2 02/15/22 09:36 Room Air 02/15/22 07:17 36.6 64 18 133/71 (91) 97 Capillary Refill : General Appearance: No Apparent Distress, WD/WN HEENT: PERRL/EOMI, Normal ENT Inspection, Pharynx Normal Neck: Full Range of Motion, Normal Inspection, Non Tender, Supple, Carotid Bruit Respiratory: Chest Non Tender, Lungs Clear, Normal Breath Sounds, No Accessory Muscle Use, No Respiratory Distress Cardiovascular: Regular Rate, Rhythm, No Edema, No Gallop, No JVD, No Murmur, Normal Peripheral Pulses Gastrointestinal: Normal Bowel Sounds, No Organomegaly, No Pulsatile Mass, Non Tender, Soft Back: Normal Inspection, No CVA Tenderness, No Vertebral Tenderness Extremity: Normal Capillary Refill, Normal Inspection, Normal Range of Motion, Non Tender, No Calf Tenderness, No Pedal Edema Neurologic/Psychiatric: Alert, Oriented x3, No Motor/Sensory Deficits, Normal Mood/Affect, clarifier operator helper II-XII Norm as Tested, Motor Weakness Skin: Normal Color, Warm/Dry Lymphatic: No Adenopathy Results/Procedures Lab Patient resulted labs reviewed. FIM Transfers Therapy Code Descriptions/Definitions Functional [place] Measure: 0=Not Assessed/NA 4=Minimal Assistance 1=Total Assistance 5=Supervision or Setup 2=Maximal Assistance 6=Modified [place] 3=Moderate Assistance 7=Complete IndependenceSCALE: Activities may be completed with or without assistive devices. 7-Ottwlfynvp-omrdclj completes the activity by him/herself with no assistance from a helper. 5-Set-up or Clean-up Assistance-helper sets up or cleans up; patient completes activity. [place] assists only prior to or following the activity. 4-Supervision or Touching Assistance-helper provides verbal cues and/or touc [place]/steadying and/or contact guard assistance as patient completes activity. Assistance may be provided throughout the activity or intermittently. 3-Partial/Moderate Assistance-helper does LESS THAN HALF the effort. [place] lifts, holds or supports trunk or limbs, but provides less than half the effort. 2-Substantial/Maximal Assistance-helper does MORE THAN HALF the effort. [place] lifts or holds trunk or limbs and provides more than half the effort. 5-Gdautjyoh-oqgrix does ALL the effort. Patient does none of the effort to complete the activity. Or, the assistance of 2 or more helpers is required for the patient to complete the activity. If activity was not attempted, code reason: 7-Patient Refused. 9-Not Applicable-not attempted and the patient did not perform the activity before the current illness, exacerbation or injury. 10-Not Attempted due to Environmental Limitations-(lack of equipment, weather restraints, etc.). 88-Not Attempted due to Medical Conditions or Safety Concerns. Roll Left to Right (QC): 6 Sit to Lying (QC): 6 Sit to Stand (QC): 6 Chair/Jla-ql-Wvlyf Xfer(QC): 6 Car Transfer (QC): 4 Gait Training Does the Patient Walk?: Yes Distance: 120'x2 Walk 10 feet (QC): 6 Walk 50 ft with 2 Turns(QC): 6 Walk 150 ft (QC): 6 Walking 10ft/uneven surface-QC: 3 Gait Persons Needed: 1 Gait Assistive Device: FWW Wheelchair Training Does the Pt Use a Wheelchair?: Yes Distance: 150 Wheel 50 ft with 2 turns (QC): 5 Wheel 150 ft (QC): 5 Type of Wheelchair: Manual Stair Training #of Steps: 0 1 Step (curb) (QC): 88 4 Steps (QC): 88 12 Steps (QC): 88 Balance Picking up an Object (QC): 88 ADL-Treatment Eating (QC): 6 Oral Hygiene (QC): 6 Shower/Bathe Self (QC): 5 Upper Body Dressing (QC): 6 Lower Body Dressing (QC): 4 On/Off Footwear (QC): 5 Toileting Hygiene (QC): 6 Toilet Transfer (QC): 6 Assessment/Plan Assessment and Plan Assess & Plan/Chief Complaint Assessment: 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 DM HTN Post op anemia Glaucoma Plan: Monitor sugars PT OT Pain control 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 02/06/2022: Increase insulin Pain control 02/07/2022: Eye drops Monitor sugars 02/08/2022: OHA and transition from insulin Monitor closely 02/09/2022: Monitor sugars 02/10/2022: Transition to pill form of diabetes management 02/11/2022: Supportive care Monitor closely 02/12/2022: Monitor closely Sugars improved 02/13/2022: Decrease Accu-Cheks Decreased dose of oral hypoglycemic agent 02/14/2022: Monitor closely Sugars good 02/15/2022: DC tomorrow (1) Below-knee amputation of right lower extremity Status: Acute (2) Insulin dependent diabetes mellitus Status: Acute ITZ BELCHER DO Feb 15, 2022 06:52
[2022-02-15 07:17] VITALS: BP 133/71
--- NOTE | 2022-02-15 09:04 | Occupational Ther Daily Note ---
OT Current Status-Daily Note Subjective Pt agrees to therapy and wanted to shower. 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 After performing some mock IADLs, he reported that he does not foresee any trouble once he gets home. All questions and concerns about going home were answered. Appearance Pt left in w/c with all needs within reach. Mental Status/Objective Patient Orientation: Person, Place, Time, Situation ADL-Treatment Therapy Code Descriptions/Definitions Functional [place] Measure: 0=Not Assessed/NA 4=Minimal Assistance 1=Total Assistance 5=Supervision or Setup 2=Maximal Assistance 6=Modified [place] 3=Moderate Assistance 7=Complete IndependenceSCALE: Activities may be completed with or without assistive devices. 1-Xfmpfkydet-wmolkxx completes the activity by him/herself with no assistance from a helper. 5-Set-up or Clean-up Assistance-helper sets up or cleans up; patient completes activity. [place] assists only prior to or following the activity. 4-Supervision or Touching Assistance-helper provides verbal cues and/or touching/steadying and/or contact guard assistance as patient completes activity. Assistance may be provided throughout the activity or intermittently. 3-Partial/Moderate Assistance-helper does LESS THAN HALF the effort. [place] lifts, holds or supports trunk or limbs, but provides less than half the effort. 2-Substantial/Maximal Assistance-helper does MORE THAN HALF the effort. [place] lifts or holds trunk or limbs and provides more than half the effort. 2-Szvmxjlsd-hlsmcd does ALL the effort. Patient does none of the effort to complete the activity. Or, the assistance of 2 or more helpers is required for the patient to complete the activity. If activity was not attempted, code reason: 7-Patient Refused. 9-Not Applicable-not attempted and the patient did not perform the activity before the current illness, exacerbation or injury. 10-Not Attempted due to Environmental Limitations-(lack of equipment, weather restraints, etc.). 88-Not Attempted due to Medical Conditions or Safety Concerns. Oral Hygiene (QC): 6 Shower/Bathe Self (QC): 5 Upper Body Dressing (QC): 6 Lower Body Dressing (QC): 6 On/Off Footwear: 5 Toileting Hygiene (QC): 6 Toilet Transfer (QC): 6 Pt retrieved clothing from top cabinet with Modified independence. Shower performed independently with 100% completed in sitting. Good recall on use of LHS to improve independence/safety when washing foot. Clothing donned seated in w/c. Pt able to thread LLE and residual limb without assistance. Improved safety as he stood to manage clothing up to waist, no cues or unsteadiness observed. Shaving performed at w/c level, 1 cue for thoroughness. He stated that normally he would not have that problem of left over shaving cream because he shaves before showering at home. He performed oral hygiene with independence at w/c level. Pt Has gained more independence with donning sock and stump breastfeeding peer counselor with AE and has decreased the amount of time it takes him to don said clothing. Min a with cues for straightening knee, to don ampushield, yet pt continues to exhibit improved tolerance and independence with task. Therapist demonstrated proper technique of using a bath transfer bench. Initially, min verbal cues for sequencing/safety but improved to supervision on last attempt. Other Treatment Pt performed functional standing activity to mock grabbing objects from higher to lower shelves, such as cabinets and refrigerator. He was educated on proper techniques to safely grab items from higher or lower shelves and how/where to hold onto stable objects (walker, counters, etc.) to minimize the chances of falling. Education OT Patient Education: Correct positioning, Disease process, Energy conservation, Instructions don/doff splint/brace, Modified ADL techniques, Progress toward Goal/Update tx plan, Purpose of tx/functional activities, Rehab process, Safety issues, Transfer techniques, Use of adapted equipment, W/C management Teaching Recipient: Patient Teaching Methods: Demonstration, Discussion Response to Teaching: Verbalize Understanding, Return Demonstration OT Short Term Goals Short Term Goals Time Frame: Feb 14, 2022 Eatin Oral hygiene: 5 Toileting hygiene: 4 Shower/bathe self: 4 Upper body dressin Lower body dressin Putting on/taking off footwear: 4 OT Custodial Goals Acidity Tester Goals Time Frame: Feb 21, 2022 Eating (QC): 6 (met) Oral Hygiene (QC): 6 (met) Toileting Hygiene (QC): 6 (met) Shower/Bathe Self (QC): 5 (met) Upper Body Dressing (QC): 6 (met) Lower Body Dressing (QC): 5 (met) On/Off Footwear (QC): 5 (met) Additional Goals: 1-Demonstrate ADL Tasks, 2-Verbalize Understanding, 3-Improve Strength/Alyssa 1=Demonstrate adherence to instructed precautions during ADL tasks. 2=Patient will verbalize/demonstrate understanding of assistive devices/modifications for ADL. 3=Patient will improve strength/tolerance for activity to enable patient to pe rform ADL's. OT Education/Plan Problem List/Assessment Assessment: Decreased Activ Tolerance, Decreased Safety Aware, Decreased UE Strength, Impaired Cognition, Impaired Coordination, Impaired Funct Balance, Im paired I ADL's, Impaired Self-Care Skills, Visual-Perceptual Deficit Discharge Recommendations Plan/Recommendations: Continue POC Therapy Discharge Recommendati: Post Acute OT Equpiment Recommendations-D/C: Extended Bath Bench Treatment Plan/Plan of Care Treatment,Training & Education: Yes Patient would benefit from OT for education, treatment and training to promote independence in ADL's, mobility, safety and/or upper extremity function for ADL's. Plan of Care: ADL Retraining, Cognitive Retraining, Concurrent Therapy, Functional Mobility, Group Exercise/Act as Ind, Orthotic Fitting/Training, UE Funct Exercise/Act, W/C Management Training Treatment Duration: Feb 21, 2022 Frequency: At least 5 of 7 days/Wk (IRF) Estimated Hrs Per Day: 1.5 hours per day (75-90 min/day) Agreement: Yes Rehab Potential: Fair Time/GCodes Start Time: 07:30 Stop Time: 09:00 Total Time Billed (hr/min): 90 Billed Treatment Time 1 visit ADL x4 (60 minutes) FA x2 (30 minutes) Licha Lee OT Feb 15, 2022 09:03
[2022-02-15] MEDS: DOCUSATE SODIUM 100 MG (COLACE) CAP PO SCH ×2 (09:33→20:52)
[2022-02-15] MEDS: glyBURIDE 2.5 MG (MICRONASE) TAB PO SCH (09:33)
[2022-02-15] MEDS: polyethylene glycoL POWDER 17 GM (MIRALAX) PACK PO SCH ×2 (09:33→20:52)
[2022-02-15] MEDS: MICONAZOLE 2% POWDER (DESENEX AF) 90 GM TOP SCH ×2 (09:35→20:47)
[2022-02-15] MEDS: TIMOLOL MALEATE 0.5% 5 ML (TIMOPTIC) BTL OU SCH (09:35)
[2022-02-15] MEDS: SENNA W/DOCUSATE (SENOKOT S) TABLET PO SCH ×2 (09:35→20:52)
[2022-02-15] MEDS: ENOXAPARIN 40 MG/0.4 ML (LOVENOX) SYR SQ SCH (11:10)
--- NOTE | 2022-02-15 11:22 | Physical Therapy Daily Note ---
PT Daily Note-Current Subjective Patient in WC at bedside pre tx, agrees to PT, has no complaints of pain. Appearance Patient in WC at bedside post tx with nurse call, phone, tray, all needs met. Mental Status Patient Orientation: Person, Place, Situation Transfers SCALE: Activities may be completed with or without assistive devices. 6-Oqowtlkeaf-ivzocnd completes the activity by him/herself with no assistance from a helper. 5-Set-up or Clean-up Assistance-helper sets up or cleans up; patient completes activity. [place] assists only prior to or following the activity. 4-Supervision or Touching Assistance-helper provides verbal cues and/or touching/steadying and/or contact guard assistance as patient completes activity. Assistance may be provided throughout the activity or intermittently. 3-Partial/Moderate Assistance-helper does LESS THAN HALF the effort. [place] lifts, holds or supports trunk or limbs, but provides less than half the effort. 2-Substantial/Maximal Assistance-helper does MORE THAN HALF the effort. [place] lifts or holds trunk or limbs and provides more than half the effort. 7-Riuejtesw-vqvqxx does ALL the effort. Patient does none of the effort to complete the activity. Or, the assistance of 2 or more helpers is required for the patient to complete the activity. If activity was not attempted, code reason: 7-Patient Refused. 9-Not Applicable-not attempted and the patient did not perform the activity before the current illness, exacerbation or injury. 10-Not Attempted due to Environmental Limitations-(lack of equipment, weather restraints, etc.). 88-Not Attempted due to Medical Conditions or Safety Concerns. Roll Left & Right (QC): 6 Sit to Lying (QC): 6 Lying to Sitting/Side of Bed(Q: 6 Sit to Stand (QC): 6 Chair/Qbc-mw-Idimc Xfer(QC): 6 Toilet Transfer (QC): 6 Car Transfer (QC): 6 Patient performs rolling and supine <-> sit with independence, sit <-> stand and transfers with independence, car transfer independent. Weight Bearing Right Lower Extremity: Right Non Weight Bearing Left Lower Extremity: Left Full Weight Bearing Gait Training Does the Patient Walk?: Yes Distance: 150'x2, 120'x2 Walk 10 feet (QC): 6 Walk 50 ft with 2 Turns(QC): 6 Walk 150 ft (QC): 6 Walking 10ft/uneven surface-QC: 4 Gait Assistive Device: FWW Patient can ambulate 150' with a rolling walker with independence (including 50' with at least 2 turns of 90 degrees but needs CGA for 10' over an uneven s urface). Patient needed steadying assist for 10' over an uneven surface. Wheelchair Training Does the Pt Use a Wheelchair?: Yes Wheel 50 ft with 2 turns (QC): 6 Wheel 150 ft (QC): 6 Type of Wheelchair: Manual Stair Training 1 Step (curb) (QC): 2 Stairs: Pattern: Hops Patient could go up and down 1 step using 2 handrails with max assist. Patient's left leg is not strong enough to hop up and down 1 step without significant assist from therapist. Balance Picking up an Object (QC): 4 (SBA using rear admiral) Exercises Supine Ex: Bridging (with ball), Lower trunk rotation (with ball), Straight leg raise (RLE), Hip abd/add (RLE) Supine Reps: 20 Seated Therapy Exercises: Hip flexion, Hip abd/add Seated Reps: 20 Standing: Heel/toe raises (LLE), 3 way Ex=Flex, Abd, Ext (RLE x 20), Mini squats (LLE) Standing Reps: 15 LAQ LLE with 2# ankle weight for 5 min, prone hip extension stretch for 5 min NuStep Minutes: 15 NuStep Workload: 5 Treatments bed mobility and transfers, ambulation, stair training, WC mobility, stretching, functional strengthening Assessment Current Status: Fair Progress Patient has a lot of difficulty with uneven surfaces and loses balance with even a small hop up onto a mat to test uneven surfaces and needed steadying assist. PT Field Investigator Goals Mcfp Goals PT Field Investigator Goals Time Frame: Feb 26, 2022 Roll Left & Right (QC): 6 Sit to Lying (QC): 6 Lying-Sitting on Side/Bed(QC): 6 Sit to Stand (QC): 6 Chair/Clo-pn-Mlipy Xfer(QC): 6 Toilet Transfer (QC): 6 Car Transfer (QC): 6 Does the Patient Walk: Yes Walk 10 feet (QC): 6 Walk 50ft with 2 Turns (QC): 5 Walk 150 ft (QC): 6 Walking 10ft on Uneven Surface: 6 1 Step (curb) (QC): 4 4 Steps (QC): 4 12 Steps (QC): 3 Picking up an Object (QC): 6 Does the Pt use WC or Scooter?: Yes Wheel 50 feet with 2 turns (QC: 6 Type: Manual Wheel 150 feet: 6 Type: Manual PT Plan Problem List Problem List: Activity Tolerance, Functional Strength, Safety, Balance, Gait, Transfer, Bed Mobility, ROM Treatment/Plan Treatment Plan: Continue Plan of Care Treatment Plan: Bed Mobility, Education, Functional Activity Alyssa, Functional Strength, Group Therapy, Gait, Safety, Therapeutic Exercise, Transfers Treatment Duration: Mar 05, 2022 Frequency: At least 5 of 7 days/Wk (IRF) Estimated Hrs Per Day: 1.5 hours per day Patient and/or Family Agrees t: Yes Safety Risks/Education Patient Education: Gait Training, Transfer Techniques, Steps, Correct Posit ioning, W/C Management, Safety Issues Teaching Recipient: Patient Teaching Methods: Demonstration, Discussion Response to Teaching: Reinforcement Needed Time/GCodes Time In: 1000 Time Out: 1130 Total Billed Treatment Time: 90 Total Billed Treatment 1 visit FA 45' EX 45' YVETTE LUCIO PT Feb 15, 2022 11:22
[2022-02-15 19:58] VITALS: BP 170/69
[2022-02-15] MEDS: LATANOPROST 0.005% (XALATAN) OPHTH SOLN 2.5 ML OU SCH (20:47)
[2022-02-16] MEDS ORDERED: MICO90PO TOP (05:34)
[2022-02-16] MEDS ORDERED: TIMO5DRO5 OU (05:34)
[2022-02-16] MEDS ORDERED: LATA2.5D19 OU (05:34)
[2022-02-16] MEDS ORDERED: METF-397 PO (05:34)
[2022-02-16] MEDS ORDERED: GLYB1.253 PO (05:34)
[2022-02-16] MEDS ORDERED: ACHYD1T PO (05:34)
--- NOTE | 2022-02-16 05:39 | D/C HH Face to Face Order ---
D/C Face to Face Orders Reconcile Patient Problems Problems Reviewed?: Yes Instructions for Patient Integrity Patient Instructions/FollowUp: PCP 1 week Physician to follow Patient: PCP Discharge Diet for Home: ADA Diet Patient Problems: Right BKA Patient Data-Allergies,Ht & Wt Patient Allergies: Coded Allergies: No Known Drug Allergies (Unverified , 02/02/22) Home Health Need/Face to Face Date of Face to Face: Feb 16, 2022 Clinical Findings: Generalized weakness and fatigue, Instability I have seen Pt wixq-cf-[id number]: Yes Discharged To: Home Diagnosis/Conditions: Right bka Patient is Homebound due to: [place] fall risk due to instabilty, Muscle weakness Homebound Status Due to the above stated illness, injury or surgical procedure (medical condition or diagnosis) and associated clinical findings, the patient is homebound because of his/her inability to leave home except with aid of a supportive device and/or person AND leaving the home requires a considerable and taxing effort or is medically contraindicated. Pt req the following assistanc: Walker, Wheelchair Home Health Nursing Orders Home Health Services Order: Nursing Services, Shake Maker-Evaluate & Treat, Physical Therapy-Evaluate & Treat [facility] cert[facility] that this patient is under my care and that I, a nurse practitioner or a physician; a assistant tennis professional working with me, had a face to face encounter that - meets the physician face to face encounter requirements with this patient as dated. ITZ BELCHER DO Feb 16, 2022 05:39
[2022-02-16] MEDS ORDERED: BLOO1EAC87 MC (05:43)
[2022-02-16] MEDS ORDERED: LANC1COM6 MC (05:43)
--- NOTE | 2022-02-16 05:44 | Discharge Summary ---
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 02/06/2022: Increase insulin Pain control 02/07/2022: Eye drops Monitor sugars 02/08/2022: OHA and transition from insulin Monitor closely 02/09/2022: Monitor sugars 02/10/2022: Transition to pill form of diabetes management 02/11/2022: Supportive care Monitor closely 02/12/2022: Monitor closely Sugars improved 02/13/2022: Decrease Accu-Cheks Decreased dose of oral hypoglycemic agent 02/14/2022: Monitor closely Sugars good 02/15/2022: DC tomorrow (1) Below-knee amputation of right lower extremity Status: Acute (2) Insulin dependent diabetes mellitus Status: Acute Discharge Summary Discharge Physical Examination Allergies: Coded Allergies: No Known Drug Allergies (Unverified , 02/02/22) Vitals & I&Os Vital Signs Date Time Temp Pulse Resp B/P (MAP) Pulse Ox O2 Delivery O2 Flow Rate FiO2 02/16/22 15:30 36.3 86 16 151/80 97 Room Air General Appearance: Alert, Oriented X3, Cooperative Respiratory: Clear to Auscultation Cardiovascular: Regular Rate Neuro: Normal Speech, Strength at 5/5 X4 Ext Psych/Mental Status: Mental Status NL Hospital Course Was the Problem List Reviewed?: Yes Pt had an uneventful hospital course for 12 days status post right knee BKA. Blood sugars improved. Switched from Insulin to low dose Glyburide and Metformin. Pt was restarted on all home medication including eye drops. Bowel regimen resolved the constipation. Overall he did very well and was ready for discharge with home health. Labs (last 24 hrs) Laboratory Tests 02/05/22 15:46: Glucometer 280H 02/05/22 20:17: Glucometer 247H 02/06/22 05:01: White Blood Count 6.6, Red Blood Count 3.06L, Hemoglobin 9.1L, Hematocrit 28L, Mean Corpuscular Volume 92, Mean Corpuscular Hemoglobin 30, Mean Corpuscular Hemoglobin Concent 32, Red Cell Distribution Width 12.9, Platelet Count 373, Mean Platelet Volume 9.2, Immature Granulocyte % (Auto) 1, Neutrophils (%) (Auto) 67, Lymphocytes (%) (Auto) 20, Monocytes (%) (Auto) 8, Eosinophils (%) (Auto) 4, Basophils (%) (Auto) 1, Neutrophils # (Auto) 4.4, Lymphocytes # (Auto) 1.3, Monocytes # (Auto) 0.5, Eosinophils # (Auto) 0.2, Basophils # (Auto) 0.0, Immature Granulocyte # (Auto) 0.1, Sodium Level 135, Potassium Level 4.2, Chloride Level 108H, Carbon Dioxide Level 20L, Anion Gap 7, Blood Urea Nitrogen 11, Creatinine 0.79, Estimat Glomerular Filtration Rate 106, BUN/Creatinine Ratio 14, Glucose Level 206H, Calcium Level 7.5L, Corrected Calcium 9.2, Total Bilirubin 0.3, Aspartate Amino Transf (AST/SGOT) 18, Alanine Aminotransferase (ALT/SGPT) 11, Alkaline Phosphatase 196H, Total Protein 6.0L, Albumin 1.9L 02/06/22 05:40: Glucometer 189H 02/06/22 10:51: Glucometer 214H 02/06/22 15:29: Glucometer 276H 02/06/22 20:16: Glucometer 198H 02/07/22 06:17: Glucometer 128H 02/07/22 11:03: Glucometer 216H 02/07/22 15:42: Glucometer 136H 02/07/22 20:06: Glucometer 187H 02/08/22 05:53: Glucometer 96 02/08/22 10:53: Glucometer 215H 02/08/22 15:44: Glucometer 166H 02/08/22 20:19: Glucometer 201H 02/09/22 05:47: Glucometer 170H 02/09/22 10:48: Glucometer 192H 02/09/22 16:15: Glucometer 127H 02/09/22 20:37: Glucometer 147H 02/10/22 05:33: Glucometer 132H 02/10/22 10:48: Glucometer 142H 02/10/22 15:21: Glucometer 128H 02/10/22 20:32: Glucometer 178H 02/11/22 05:44: Glucometer 123H 02/11/22 10:53: Glucometer 136H 02/11/22 15:19: Glucometer 91 02/11/22 20:19: Glucometer 139H 02/12/22 05:41: Glucometer 110 02/12/22 11:03: Glucometer 132H 02/12/22 16:17: Glucometer 148H 02/12/22 20:12: Glucometer 128H 02/13/22 06:24: Glucometer 101 02/13/22 10:58: Glucometer 158H 02/14/22 06:30: White Blood Count 6.5, Red Blood Count 3.23L, Hemoglobin 9.7L, Hematocrit 30L, Mean Corpuscular Volume 92, Mean Corpuscular Hemoglobin 30, Mean Corpuscular Hemoglobin Concent 33, Red Cell Distribution Width 13.6, Platelet Count 379, Mean Platelet Volume 9.2, Immature Granulocyte % (Auto) 1, Neutrophils (%) (Auto) 63, Lymphocytes (%) (Auto) 24, Monocytes (%) (Auto) 7, Eosinophils (%) (Auto) 5, Basophils (%) (Auto) 1, Neutrophils # (Auto) 4.1, Lymphocytes # (Auto) 1.5, Monocytes # (Auto) 0.4, Eosinophils # (Auto) 0.3, Basophils # (Auto) 0.0, Immature Granulocyte # (Auto) 0.0, Sodium Level 141, Potassium Level 3.6, Chloride Level 106, Carbon Dioxide Level 26, Anion Gap 9, Blood Urea Nitrogen 9, Creatinine 0.92, Estimat Glomerular Filtration Rate 99, BUN/Creatinine Ratio 10, Glucose Level 102, Calcium Level 8.5, Corrected Calcium 9.5, Total Bilirubin 0.4, Aspartate Amino Transf (AST/SGOT) 12, Alanine Aminotransferase (ALT/SGPT) 9, Alkaline Phosphatase 105, Total Protein 7.0, Albumin 2.7L 02/14/22 15:21: Glucometer 107 02/15/22 05:20: Glucometer 116H 02/16/22 05:33: Glucometer 124H Pending Labs Laboratory Tests 02/05/22 15:46: Glucometer 280 02/05/22 20:17: Glucometer 247 02/06/22 05:01: White Blood Count 6.6, Red Blood Count 3.06, Hemoglobin 9.1, Hematocrit 28, Mean Corpuscular Volume 92, Mean Corpuscular Hemoglobin 30, Mean Corpuscular Hemoglobin Concent 32, Red Cell Distribution Width 12.9, Platelet Count 373, Mean Platelet Volume 9.2, Immature Granulocyte % (Auto) 1, Neutrophils (%) (Auto) 67, Lymphocytes (%) (Auto) 20, Monocytes (%) (Auto) 8, Eosinophils (%) (Auto) 4, Basophils (%) (Auto) 1, Neutrophils # (Auto) 4.4, Lymphocytes # (Auto) 1.3, Monocytes # (Auto) 0.5, Eosinophils # (Auto) 0.2, Basophils # (Auto) 0.0, Immature Granulocyte # (Auto) 0.1, Sodium Level 135, Potassium Level 4.2, Chloride Level 108, Carbon Dioxide Level 20, Anion Gap 7, Blood Urea Nitrogen 11, Creatinine 0.79, Estimat Glomerular Filtration Rate 106, BUN/Creatinine Ratio 14, Glucose Level 206, Calcium Level 7.5, Corrected Calcium 9.2, Total Bilirubin 0.3, Aspartate Amino Transf (AST/SGOT) 18, Alanine Aminotransferase (ALT/SGPT) 11, Alkaline Phosphatase 196, Total Protein 6.0, Albumin 1.9 02/06/22 05:40: Glucometer 189 02/06/22 10:51: Glucometer 214 02/06/22 15:29: Glucometer 276 02/06/22 20:16: Glucometer 198 02/07/22 06:17: Glucometer 128 02/07/22 11:03: Glucometer 216 02/07/22 15:42: Glucometer 136 02/07/22 20:06: Glucometer 187 02/08/22 05:53: Glucometer 96 02/08/22 10:53: Glucometer 215 02/08/22 15:44: Glucometer 166 02/08/22 20:19: Glucometer 201 02/09/22 05:47: Glucometer 170 02/09/22 10:48: Glucometer 192 02/09/22 16:15: Glucometer 127 02/09/22 20:37: Glucometer 147 02/10/22 05:33: Glucometer 132 02/10/22 10:48: Glucometer 142 02/10/22 15:21: Glucometer 128 02/10/22 20:32: Glucometer 178 02/11/22 05:44: Glucometer 123 02/11/22 10:53: Glucometer 136 02/11/22 15:19: Glucometer 91 02/11/22 20:19: Glucometer 139 02/12/22 05:41: Glucometer 110 02/12/22 11:03: Glucometer 132 02/12/22 16:17: Glucometer 148 02/12/22 20:12: Glucometer 128 02/13/22 06:24: Glucometer 101 02/13/22 10:58: Glucometer 158 02/14/22 06:30: White Blood Count 6.5, Red Blood Count 3.23, Hemoglobin 9.7, Hematocrit 30, Mean Corpuscular Volume 92, Mean Corpuscular Hemoglobin 30, Mean Corpuscular Hemoglobin Concent 33, Red Cell Distribution Width 13.6, Platelet Count 379, Mean Platelet Volume 9.2, Immature Granulocyte % (Auto) 1, Neutrophils (%) (Auto) 63, Lymphocytes (%) (Auto) 24, Monocytes (%) (Auto) 7, Eosinophils (%) (Auto) 5, Basophils (%) (Auto) 1, Neutrophils # (Auto) 4.1, Lymphocytes # (Auto) 1.5, Monocytes # (Auto) 0.4, Eosinophils # (Auto) 0.3, Basophils # (Auto) 0.0, Immature Granulocyte # (Auto) 0.0, Sodium Level 141, Potassium Level 3.6, Chloride Level 106, Carbon Dioxide Level 26, Anion Gap 9, Blood Urea Nitrogen 9, Creatinine 0.92, Estimat Glomerular Filtration Rate 99, BUN/Creatinine Ratio 10, Glucose Level 102, Calcium Level 8.5, Corrected Calcium 9.5, Total Bilirubin 0.4, Aspartate Amino Transf (AST/SGOT) 12, Alanine Aminotransferase (ALT/SGPT) 9, Alkaline Phosphatase 105, Total Protein 7.0, Albumin 2.7 02/14/22 15:21: Glucometer 107 02/15/22 05:20: Glucometer 116 02/16/22 05:33: Glucometer 124 Discharge Home Medications: Active Scripts Active Lancet 30G-Glucose Test Strip (Lancets/Blood Glucose Strips) 30 Gauge Combo..pkg Each MC DAILY PRN Blood Glucose Meter (Blood-Glucose Meter) 1 Each Each Each DAILY Glyburide 1.25 Mg Tablet 0.625 Mg PO DAILY Lotrimin AF (Miconazole Nitrate) 2 % Powder 0 Gm TOP BID twice daily prn HYDROcodone/APAP 10/325 TABLET (Acetaminophen/Hydrocodone Bitart) 1 Ea Tab 1 Ea PO Q6H PRN Metformin HCl 500 Mg Tablet 500 Mg PO BID WITH MEALS Xalatan (Latanoprost) 0.005 % Drops 1 Drop OU HS Timolol Maleate 0.5% (Timolol Maleate) 0.5 % Drops 1 Drop OU DAILY Reported Tylenol Extra Strength (Acetaminophen) 500 Mg Tablet 1,000 Mg PO Q8H PRN Instructions to patient/family Please see electronic discharge instructions given to patient. Diagnosis/Problems Diagnosis/Problems (1) Below-knee amputation of right lower extremity Status: Acute (2) Insulin dependent diabetes mellitus Status: Acute ITZ BELCHER DO Feb 16, 2022 05:44
[2022-02-16 07:32] VITALS: BP 151/80
[2022-02-16] MEDS: glyBURIDE 2.5 MG (MICRONASE) TAB PO SCH (07:42)
[2022-02-16] MEDS: TIMOLOL MALEATE 0.5% 5 ML (TIMOPTIC) BTL OU SCH (07:43)
[2022-02-16] MEDS: MICONAZOLE 2% POWDER (DESENEX AF) 90 GM TOP SCH (09:04)
[2022-02-16] MEDS: DOCUSATE SODIUM 100 MG (COLACE) CAP PO SCH (11:50)
[2022-02-16] MEDS: ENOXAPARIN 40 MG/0.4 ML (LOVENOX) SYR SQ SCH (11:51)
[2022-02-16] MEDS: polyethylene glycoL POWDER 17 GM (MIRALAX) PACK PO SCH (11:51)
[2022-02-16] MEDS: SENNA W/DOCUSATE (SENOKOT S) TABLET PO SCH (11:51)
--- NOTE | 2022-02-16 15:24 | Therapy Team Discharge Summary ---
Therapy Discharge Summary Discharge Recommendations Date of Discharge Therapy D/C Recommendations: Assisted Living, Homemaker Support, Meals on Wheels Physical Therapy Roll Left to Right (QC): 6 Sit to Lying (QC): 6 Lying to Sitting/Side of Bed(Q: 6 Sit to Stand (QC): 6 Chair/Pki-cg-Rwwpt Xfer(QC): 6 Toilet Transfer (QC): 4 Car Transfer (QC): 6 Does the Patient Walk: Yes Mode of Locomotion: Walk Anticipated Mode of Locomotion: Both Walk 10 feet (QC): 6 Walk 50 ft with 2 Turns(QC): 6 Walk 150 ft (QC): 6 Walking 10ft on uneven surface: 4 Distance: 80, 50 Gait Assistive Device: FWW Does the Pt Use a Wheelchair: Yes Wheelchair Distance: 150 Wheel 50 ft with 2 turns (QC): 6 Wheel 150 ft (QC): 6 Type of Wheelchair: Manual #of Steps: 0 1 Step (curb) (QC): 2 4 Steps (QC): 88 12 Steps (QC): 88 Balance Sitting Static: Normal Balance Sitting Dynamic: Normal Balance-Standing Static: Fair Picking up an Object (QC): 4 (SBA using window treatment installer) Occupational Therapy Pt admitted to [facility] s/p R [facility], [place]. At time of evaluation, pt was mod assist with toileting, footwear, LB dressing, and bathing, min assist for oral care and set up assist for UB dressing, and eating. During his rehab stay OT focused on AE, balance, strengthening, endurance, safety, problem-solving, energy conservation, and compensatory techniques in order to improve performance and independence in ADLs and functional mobility. Pt made good progress and met all of his LTGs. See below for current levels of assist. Pt will discharge from this facility today and will be discharged from OT at this time. Decreased Activ Tolerance, Decreased Safety Aware, Decreased UE Strength, Impaired Cognition, Impaired Coordination, Impaired Funct Balance, Impaired I ADL's, Impaired Self-Care Skills, Visual-Perceptual Deficit Eating (QC): 6 Oral Hygiene (QC): 6 Shower/Bathe Self (QC): 5 Upper Body Dressing (QC): 6 Lower Body Dressing (QC): 6 On/Off Footwear (QC): 5 Toileting Hygiene (QC): 6 PT Fpc Goals Fpc Goals PT Fpc Goals Time Frame: Feb 26, 2022 Roll Left to Right (QC): 6 Sit to Lying (QC): 6 Lying-Sitting on Side/Bed(QC): 6 Sit to Stand (QC): 6 Chair/Idp-jc-Kzvod Xfer(QC): 6 Car Transfer (QC): 6 Does the Patient Walk: Yes Walk 10 feet (QC): 6 Walk 10ft-Uneven Surface(QC): 6 Walk 50ft with 2 Turns (QC): 5 Walk 150 ft (QC): 6 Does the Pt use WC or Scooter?: Yes Wheel 50 feet with 2 turns (QC: 6 1 Step (curb) (QC): 4 4 Steps (QC): 4 12 Steps (QC): 3 Picking up an Object (QC): 6 OT Financial Services Education Consultant Goals Financial Services Education Consultant Goals Time Frame: Feb 21, 2022 Eating (QC): 6 (met) Oral Hygiene (QC): 6 (met) Shower/Bathe Self (QC): 5 (met) Upper Body Dressing (QC): 6 (met) Lower Body Dressing (QC): 5 (met) On/Off Footwear (QC): 5 (met) Toileting Hygiene (QC): 6 (met) Toilet/Commode Transfer (QC): 6 Additional Goals: 1-Demonstrate ADL Tasks, 2-Verbalize Understanding, 3- ImproveStrength/Alyssa 1=Demonstrate adherence to instructed precautions during ADL tasks. 2=Patient will verbalize/demonstrate understanding of assistive devices/modifications for ADL. 3=Patient will improve strength/tolerance for activity to enable patient to perform ADL's. Licha Lee OT Feb 16, 2022 15:24
--- NOTE | 2022-02-16 15:27 | Therapy Team Discharge Summary ---
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 Upon evaluation patient performed rolling and supine <-> sit with min/mod assist, sit <-> stand and transfers with min/mod assist, car transfer min/mod assist, ambulated 80' with a rolling walker with min/mod assist (including 50' with at least 2 turns of 90 degrees and 10' over an uneven surface), and propelled a manual WC 150' with SBA. Patient has been performing bed mobility and transfer training, balance and endurance training, functional strengthening, stair training, gait training, and education. Patient has made fair progress and has met all of his fci goals except for stairs, picking an object up off the floor, and ambulating 10' over an uneven surface. Now,patient performs rolling and supine <-> sit with independence, sit <-> stand and transfers with independence, car transfer independent, ambulate 150' with a rolling walker with independence (including 50' with at least 2 turns of 90 degrees but needs CGA for 10' over an uneven surface), go up and down 1 step using 2 handrails with max assist, picked up an object from the floor using a adult nurse practitioner with SBA, and propels a manual WC with independence. Patient is being discharged from this facility today and will be discharged from PT at this time. Roll Left to Right (QC): 6 Sit to Lying (QC): 6 Lying to Sitting/Side of Bed(Q: 6 Sit to Stand (QC): 6 Chair/Uoe-hk-Ipgfy Xfer(QC): 6 Toilet Transfer (QC): 4 Car Transfer (QC): 6 Does the Patient Walk: Yes Mode of Locomotion: Walk Anticipated Mode of Locomotion: Both Walk 10 feet (QC): 6 Walk 50 ft with 2 Turns(QC): 6 Walk 150 ft (QC): 6 Walking 10ft on uneven surface: 4 Distance: 80, 50 Gait Assistive Device: FWW Does the Pt Use a Wheelchair: Yes Wheelchair Distance: 150 Wheel 50 ft with 2 turns (QC): 6 Wheel 150 ft (QC): 6 Type of Wheelchair: Manual #of Steps: 0 1 Step (curb) (QC): 2 4 Steps (QC): 88 12 Steps (QC): 88 Balance Sitting Static: Normal Balance Sitting Dynamic: Normal Balance-Standing Static: Fair Picking up an Object (QC): 4 (SBA using adult nurse practitioner) Occupational Therapy Decreased Activ Tolerance, Decreased Safety Aware, Decreased UE Strength, Impaired Cognition, Impaired Coordination, Impaired Funct Balance, Impaired I ADL's, Impaired Self-Care Skills, Visual-Perceptual Deficit Eating (QC): 6 Oral Hygiene (QC): 6 Shower/Bathe Self (QC): 5 Upper Body Dressing (QC): 6 Lower Body Dressing (QC): 6 On/Off Footwear (QC): 5 Toileting Hygiene (QC): 6 PT Water Service Dispatcher Goals [facility] Goals PT Water Service Dispatcher Goals Time Frame: Feb 26, 2022 Roll Left to Right (QC): 6 Sit to Lying (QC): 6 Lying-Sitting on Side/Bed(QC): 6 Sit to Stand (QC): 6 Chair/Jfu-ud-Gohbo Xfer(QC): 6 Car Transfer (QC): 6 Does the Patient Walk: Yes Walk 10 feet (QC): 6 Walk 10ft-Uneven Surface(QC): 6 Walk 50ft with 2 Turns (QC): 5 Walk 150 ft (QC): 6 Does the Pt use WC or Scooter?: Yes Wheel 50 feet with 2 turns (QC: 6 1 Step (curb) (QC): 4 4 Steps (QC): 4 12 Steps (QC): 3 Picking up an Object (QC): 6 OT Water Service Dispatcher Goals [facility] Goals Time Frame: Feb 21, 2022 Eating (QC): 6 (met) Oral Hygiene (QC): 6 (met) Shower/Bathe Self (QC): 5 (met) Upper Body Dressing (QC): 6 (met) Lower Body Dressing (QC): 5 (met) On/Off Footwear (QC): 5 (met) Toileting Hygiene (QC): 6 (met) Toilet/Commode Transfer (QC): 6 Additional Goals: 1-Demonstrate ADL Tasks, 2-Verbalize Understanding, 3- ImproveStrength/Alyssa 1=Demonstrate adherence to instructed precautions during ADL tasks. 2=Patient will verbalize/demonstrate understanding of assistive devices/modifications for ADL. 3=Patient will improve strength/tolerance for activity to enable patient to perform ADL's. YVETTE LUCIO PT Feb 16, 2022 15:27
[2022-02-16 15:30] VITALS: BP 151/80
== END 2022-02-16 15:30 | disposition home health service (06) | DRG 561 ==
PROVIDERS: ADMIT Internal Medicine; ATTEND Internal Medicine
DX: Z47.81 Encounter for orthopedic aftercare following surgical amputation (principal); Z89.511 Acquired absence of right leg below knee; E11.9 Type 2 diabetes mellitus without complications; I10 Essential (primary) hypertension; D64.9 Anemia, unspecified; K59.00 Constipation, unspecified; H40.9 Unspecified glaucoma; Z82.49 Family history of ischemic heart disease and other diseases of the circulatory system; Z79.84 Long term (current) use of oral hypoglycemic drugs
CPT/HCPCS: 36415; 80053; 82947; 85025